=== PATIENT | female | born 1950 | race Caucasian/White ===

== ENCOUNTER 2017-07-17 19:00 | Inpatient (IN) | payer MEDICARE, MEDICAID ==
[~2017-07-17] VITALS: Ht 162.6 cm; Wt 128.4 kg
[~2017-07-17 19:00] MED LIST: ALBUTEROL SULFATE IH; ASPI-1159 PO; ATOR10TA69 PO; AZEL137S7 BOTHNSTRLS; CARV12.545 PO; CLOP75TA33 PO; DULO60CA44 PO; FERR-63 PO; FURO40TA5 PO; GABA-531 PO; HUMOLOG SQ; ISOS40TA17 PO; JUNUVIA PO; LETAIRIS PO; LEVEMIR SQ; LOSA25TA12 PO; MONT10TA21 PO; MULT-1146 PO; NITR0.4T SL; PANT40TA4 PO; POTA10TA15 PO; SUPER B-COMPLEX PO; TRAM50TA3 PO
[2017-07-17 20:00] VITALS: BP 139/71
[2017-07-17] MEDS ORDERED: GUAIFENESIN 200MG/10ML SUGAR FREE UDC PO PRN (20:15)
[2017-07-17] MEDS ORDERED: PROCHLORPERAZINE MALEATE 25MG SUPP PR PRN (20:15)
[2017-07-17] MEDS ORDERED: HEPARIN 100 UNITS/1 ML VIAL IVF PRN (20:15)
[2017-07-17] MEDS ORDERED: DIPHENHYDRAMINE 50MG/ML VIAL IV PRN (20:15)
[2017-07-17] MEDS ORDERED: DEXTROSE 50% WATER 50ML SYRINGE IV PRN (20:15)
[2017-07-17] MEDS ORDERED: CLONIDINE 0.1MG TABLET PO PRN (20:15)
[2017-07-17] MEDS ORDERED: IPRATROPIUM/ALBUTEROL 0.5-3(2.5)MG/3ML NEB HHN PRN (20:15)
[2017-07-17] MEDS: BLOOD SUGAR DIAGNOSTIC STRIP TEST SCH (21:00)
[2017-07-17] MEDS: SODIUM CHLORIDE 0.9% INJ 3ML FLUSH IVF SCH (22:36)
[2017-07-17] MEDS: ATORVASTATIN CALCIUM 10MG TABLET PO SCH (22:41)
[2017-07-17] MEDS: GUAIFENESIN 600MG ER TABLET PO SCH (22:41)
[2017-07-17] MEDS: INSULIN LISPRO 100 UNITS/ML SUBCUT SCH (22:46)
[2017-07-17] MEDS: INSULIN DETEMIR UD 100 UNITS/ML SYR SUBCUT SCH (22:46)
[2017-07-17] MEDS: CARVEDILOL 12.5MG TABLET PO SCH (22:55)
[2017-07-18] MEDS ORDERED: CIPROFLOXACIN 0.3% OPHTH SOLN 2.5ML LEFTEYE SCH
[2017-07-18] MEDS: THROAT LOZENGES-BENZOCAINE/MENTH/CETYLPYRD CL LOZENGES MM SCH ×6 (00:08→21:41)
[2017-07-18] MEDS: SULFAMETHOXAZOLE/TRIMETHOPRIM 400/80MG TAB PO SCH ×3 (00:09→21:40)
[2017-07-18] MEDS: PREDNISOLONE ACETATE 1% OPHTH DROPS 1ML RIGHTEYE SCH ×4 (00:16→17:08)
[2017-07-18] MEDS: KETOROLAC TROMETHAMINE 0.5% OPHTH 3ML RIGHTEYE SCH ×4 (00:20→17:08)
[2017-07-18] MEDS: IPRATROPIUM/ALBUTEROL 0.5-3(2.5)MG/3ML NEB HHN SCH ×7 (01:24→23:53)
[2017-07-18] MEDS ORDERED: RETAINE (02:16)
[2017-07-18] MEDS ORDERED: OMEP20CA10 PO (02:19)
[2017-07-18] MEDS ORDERED: VITAMIN C (02:26)
[2017-07-18] MEDS ORDERED: ZINC220T PO (02:26)
[2017-07-18] MEDS ORDERED: SPIR25TA4 PO (02:26)
[2017-07-18] MEDS ORDERED: AMLO5TAB4 PO (02:26)
[2017-07-18 05:58] LABS: HEMATOCRIT 34.1 % (36.0-48.0); HEMOGLOBIN 11.4 g/dL (12.0-16.0); MEAN CORPUSCULAR HEMOGLOBIN 28.4 pg (28.0-32.0); PLATELET 240 x1000/uL (130-400); RED BLOOD CELL COUNT 4.01 mill/uL (4.2-5.4); RED CELL DISTRIBUTION WIDTH 14.4 % (11.6-14.6)
[2017-07-18] MEDS: FAMOTIDINE 20MG TABLET PO SCH (06:42)
[2017-07-18] MEDS: SODIUM CHLORIDE 0.9% INJ 3ML FLUSH IVF SCH ×3 (06:43→21:53)
[2017-07-18] MEDS: BLOOD SUGAR DIAGNOSTIC STRIP TEST SCH ×4 (06:45→21:53)
[2017-07-18] MEDS: INSULIN LISPRO 100 UNITS/ML SUBCUT SCH ×4 (06:46→21:49)
[2017-07-18 07:08] LABS: CARBON DIOXIDE 23 mEq/L (21-32); CHLORIDE 91 mEq/L (98-107)
[2017-07-18 08:00] VITALS: BP 119/52
[2017-07-18 08:11] LABS: PREALBUMIN 36.4 mg/dL (20.0-40.0)
[2017-07-18] MEDS: ISOSORBIDE DINITRATE 20MG TABLET PO SCH ×2 (09:00→16:39)
[2017-07-18] MEDS: AMLODIPINE 10MG TABLET PO SCH (09:00)
[2017-07-18] MEDS: ACETAMINOPHEN 325MG TABLET PO PRN (09:09)
[2017-07-18] MEDS: GUAIFENESIN 600MG ER TABLET PO SCH ×2 (09:09→21:40)
[2017-07-18] MEDS: CARVEDILOL 12.5MG TABLET PO SCH ×2 (09:10→21:00)
[2017-07-18] MEDS: GABAPENTIN 300MG CAPSULE PO SCH ×2 (09:10→16:52)
[2017-07-18] MEDS: ASPIRIN 81MG TABLET PO SCH (09:10)
[2017-07-18] MEDS ORDERED: NON FORMULARY PATIENT HOME MED EA XX SCH (10:15)
[2017-07-18] MEDS: ONDANSETRON HCL 4MG/2ML VIAL IV PRN (10:24)
[2017-07-18] MEDS: LETAIRIS 5 MG PO SCH (10:24)
[2017-07-18] MEDS: INSULIN DETEMIR UD 100 UNITS/ML SYR SUBCUT SCH ×2 (10:42→21:50)
[2017-07-18] MEDS: LEVOFLOXACIN 500MG TABLET PO SCH (11:50)
[2017-07-18] MEDS: LIDOCAINE 5% PATCH TOP SCH (16:09)
[2017-07-18] MEDS: MONTELUKAST SODIUM 10MG TABLET PO SCH (16:52)
[2017-07-18 20:00] VITALS: BP 101/56
[2017-07-18] MEDS: ATORVASTATIN CALCIUM 10MG TABLET PO SCH (21:40)
[2017-07-18] MEDS: [UNRECOGNIZED DRUG - OTHER] OP SCH (21:42)
[2017-07-18] MEDS: TRIAMCINOLONE ACETONIDE 0.025% CREAM 15GM TOP SCH (21:52)
[2017-07-18] MEDS: AZELASTINE HCL XX SCH (21:56)
[2017-07-19] MEDS: KETOROLAC TROMETHAMINE 0.5% OPHTH 3ML RIGHTEYE SCH ×4 (01:10→18:31)
[2017-07-19] MEDS: PREDNISOLONE ACETATE 1% OPHTH DROPS 1ML RIGHTEYE SCH ×5 (01:10→23:35)
[2017-07-19] MEDS: THROAT LOZENGES-BENZOCAINE/MENTH/CETYLPYRD CL LOZENGES MM SCH ×7 (01:13→23:34)
[2017-07-19] MEDS: IPRATROPIUM/ALBUTEROL 0.5-3(2.5)MG/3ML NEB HHN SCH ×5 (04:09→20:50)
[2017-07-19] MEDS: FAMOTIDINE 20MG TABLET PO SCH (06:25)
[2017-07-19] MEDS: INSULIN LISPRO 100 UNITS/ML SUBCUT SCH ×4 (06:34→21:37)
[2017-07-19] MEDS: SODIUM CHLORIDE 0.9% INJ 3ML FLUSH IVF SCH ×3 (06:35→21:49)
[2017-07-19] MEDS: BLOOD SUGAR DIAGNOSTIC STRIP TEST SCH ×4 (06:36→21:41)
[2017-07-19 08:12] VITALS: BP 126/66
[2017-07-19] MEDS: LACTULOSE 20G/30ML UDC PO SCH ×5 (08:30→21:49)
[2017-07-19] MEDS: AMLODIPINE 10MG TABLET PO SCH (08:37)
[2017-07-19] MEDS: DOCUSATE SODIUM 100MG CAPSULE PO SCH ×2 (09:19→17:50)
[2017-07-19] MEDS: GABAPENTIN 300MG CAPSULE PO SCH ×2 (09:22→17:51)
[2017-07-19] MEDS: ASPIRIN 81MG TABLET PO SCH (09:22)
[2017-07-19] MEDS: SULFAMETHOXAZOLE/TRIMETHOPRIM 400/80MG TAB PO SCH ×2 (09:22→21:39)
[2017-07-19] MEDS: GUAIFENESIN 600MG ER TABLET PO SCH ×2 (09:22→21:39)
[2017-07-19] MEDS: CARVEDILOL 12.5MG TABLET PO SCH ×2 (09:23→21:00)
[2017-07-19] MEDS: AZELASTINE HCL XX SCH ×3 (09:24→17:58)
[2017-07-19] MEDS: ISOSORBIDE DINITRATE 20MG TABLET PO SCH ×2 (09:24→17:00)
[2017-07-19] MEDS: LIDOCAINE 5% PATCH TOP SCH (09:25)
[2017-07-19] MEDS: LETAIRIS 5 MG PO SCH (09:27)
[2017-07-19] MEDS: TRIAMCINOLONE ACETONIDE 0.025% CREAM 15GM TOP SCH ×2 (09:28→21:42)
[2017-07-19] MEDS: INSULIN DETEMIR UD 100 UNITS/ML SYR SUBCUT SCH ×2 (10:56→21:38)
[2017-07-19] MEDS: MONTELUKAST SODIUM 10MG TABLET PO SCH (17:58)
[2017-07-19] MEDS: ENOXAPARIN 30MG/0.3ML SYR SUBCUT SCH (18:01)
[2017-07-19 20:44] VITALS: BP 103/61
[2017-07-19] MEDS: ATORVASTATIN CALCIUM 10MG TABLET PO SCH (21:39)
[2017-07-19] MEDS: [UNRECOGNIZED DRUG - OTHER] OP SCH (21:40)
[2017-07-19] MEDS: [UNRECOGNIZED DRUG - OTHER] OP SCH (21:40)
[2017-07-19] MEDS: POLYVINYL ALCOHOL OPHTH DROPS 15ML BOTHEYE SCH (21:40)
[2017-07-19] MEDS: POLYETHYLENE GLYCOL 3350 (17GM) 1 DOSE PACK PO SCH (21:40)
[2017-07-19] MEDS: MAGNESIUM/ALUMINUM HYDROXIDE/SIMETHICONE 30ML UDC PO PRN (22:35)
[2017-07-19] MEDS: ONDANSETRON HCL 4MG/2ML VIAL IV PRN (23:32)
[2017-07-19] MEDS: ACETAMINOPHEN 325MG TABLET PO PRN (23:33)
[2017-07-20] MEDS: POLYVINYL ALCOHOL OPHTH DROPS 15ML BOTHEYE SCH ×6 (00:53→21:00)
[2017-07-20] MEDS: IPRATROPIUM/ALBUTEROL 0.5-3(2.5)MG/3ML NEB HHN SCH ×6 (00:53→21:11)
[2017-07-20] MEDS: THROAT LOZENGES-BENZOCAINE/MENTH/CETYLPYRD CL LOZENGES MM SCH ×6 (04:56→23:42)
[2017-07-20] MEDS: SODIUM CHLORIDE 0.9% INJ 3ML FLUSH IVF SCH ×3 (05:04→21:16)
[2017-07-20] MEDS: PREDNISOLONE ACETATE 1% OPHTH DROPS 1ML RIGHTEYE SCH ×4 (05:04→23:43)
[2017-07-20] MEDS: ACETAMINOPHEN 325MG TABLET PO PRN ×2 (05:44→17:08)
[2017-07-20] MEDS: FAMOTIDINE 20MG TABLET PO SCH (06:24)
[2017-07-20] MEDS: BLOOD SUGAR DIAGNOSTIC STRIP TEST SCH ×4 (06:26→21:22)
[2017-07-20] MEDS: INSULIN LISPRO 100 UNITS/ML SUBCUT SCH ×4 (06:48→21:21)
[2017-07-20 07:52] LABS: BASOPHILS % 0.5 % (0.0-2.0); EOSINOPHILS % 0.3 % (0.0-5.0); HEMATOCRIT. 35.4 % (36.0-48.0); HEMOGLOBIN. 11.4 g/dL (12.0-16.0); MEAN CORPUSCULAR HEMOGLOBIN 27.8 pg (28.0-32.0); MEAN CORPUSCULAR VOLUME 86.4 fL (81.0-99.0); MONOCYTES % 7.5 % (2.0-8.0); NEUTROPHILS % 83.7 % (40.0-76.0); PLATELET 273 x1000/uL (130-400); RED CELL DISTRIBUTION WIDTH 14.6 % (11.6-14.6)
[2017-07-20 07:54] VITALS: BP 141/60
[2017-07-20 07:59] VITALS: BP_SYST 141; BP_SYST 99; BP_DIAS 57; BP_DIAS 60
[2017-07-20 08:34] LABS: PHOSPHORUS 6.7 mg/dL (2.5-4.9)
[2017-07-20 09:21] LABS: FOLIC ACID (FOLATE) SERUM > 20.00 ng/mL (>5.38); VITAMIN B12 SERUM > 2000.0 pg/mL (211-911)
[2017-07-20 09:29] LABS: FERRITIN 645 ng/mL (10-291)
[2017-07-20] MEDS: AZELASTINE HCL XX SCH ×3 (09:55→16:26)
[2017-07-20] MEDS: KETOROLAC TROMETHAMINE 0.5% OPHTH 3ML RIGHTEYE SCH ×3 (09:56→17:07)
[2017-07-20] MEDS: SULFAMETHOXAZOLE/TRIMETHOPRIM 400/80MG TAB PO SCH ×2 (09:58→21:00)
[2017-07-20] MEDS: CARVEDILOL 12.5MG TABLET PO SCH ×2 (09:58→21:01)
[2017-07-20] MEDS: DOCUSATE SODIUM 100MG CAPSULE PO SCH ×2 (09:58→17:00)
[2017-07-20] MEDS: AMLODIPINE 10MG TABLET PO SCH (09:59)
[2017-07-20] MEDS: ISOSORBIDE DINITRATE 20MG TABLET PO SCH ×2 (09:59→17:08)
[2017-07-20] MEDS: LETAIRIS 5 MG PO SCH (10:00)
[2017-07-20] MEDS: [UNRECOGNIZED DRUG - OTHER] OP SCH ×4 (10:00→21:00)
[2017-07-20] MEDS: GABAPENTIN 300MG CAPSULE PO SCH ×2 (10:01→16:28)
[2017-07-20] MEDS: ASPIRIN 81MG TABLET PO SCH (10:01)
[2017-07-20] MEDS: GUAIFENESIN 600MG ER TABLET PO SCH ×2 (10:01→21:00)
[2017-07-20] MEDS: TRIAMCINOLONE ACETONIDE 0.025% CREAM 15GM TOP SCH ×2 (10:03→21:03)
[2017-07-20] MEDS: LIDOCAINE 5% PATCH TOP SCH (10:05)
[2017-07-20] MEDS: INSULIN DETEMIR UD 100 UNITS/ML SYR SUBCUT SCH ×2 (10:16→21:22)
[2017-07-20] MEDS: LEVOFLOXACIN 500MG TABLET PO SCH (12:19)
[2017-07-20] MEDS: MONTELUKAST SODIUM 10MG TABLET PO SCH (16:28)
[2017-07-20] MEDS: ENOXAPARIN 30MG/0.3ML SYR SUBCUT SCH (16:30)
[2017-07-20 20:00] VITALS: BP 115/51
[2017-07-20] MEDS: IRON SUCROSE COMPLEX 200 MG in SODIUM CHLORIDE 0.9% 100 ML IV SCH (20:59)
[2017-07-20] MEDS: ATORVASTATIN CALCIUM 10MG TABLET PO SCH (21:00)
[2017-07-20] MEDS: [UNRECOGNIZED DRUG - OTHER] OP SCH (21:00)
[2017-07-20] MEDS: POLYETHYLENE GLYCOL 3350 (17GM) 1 DOSE PACK PO SCH (21:00)
[2017-07-21] MEDS: IPRATROPIUM/ALBUTEROL 0.5-3(2.5)MG/3ML NEB HHN SCH ×6 (00:39→21:33)
[2017-07-21] MEDS: POLYVINYL ALCOHOL OPHTH DROPS 15ML BOTHEYE SCH ×6 (00:46→22:28)
[2017-07-21] MEDS: THROAT LOZENGES-BENZOCAINE/MENTH/CETYLPYRD CL LOZENGES MM SCH ×6 (03:53→23:06)
[2017-07-21] MEDS: PREDNISOLONE ACETATE 1% OPHTH DROPS 1ML RIGHTEYE SCH ×3 (05:29→17:29)
[2017-07-21] MEDS: SODIUM CHLORIDE 0.9% INJ 3ML FLUSH IVF SCH ×3 (05:30→22:30)
[2017-07-21] MEDS: ONDANSETRON HCL 4MG/2ML VIAL IV PRN ×4 (05:37→22:45)
[2017-07-21] MEDS: FAMOTIDINE 20MG TABLET PO SCH (06:21)
[2017-07-21] MEDS: ACETAMINOPHEN 325MG TABLET PO PRN ×3 (06:25→22:32)
[2017-07-21] MEDS: BLOOD SUGAR DIAGNOSTIC STRIP TEST SCH ×4 (06:28→21:00)
[2017-07-21] MEDS: INSULIN LISPRO 100 UNITS/ML SUBCUT SCH ×4 (06:52→22:44)
[2017-07-21 08:00] VITALS: BP 116/56
[2017-07-21] MEDS: AMLODIPINE 10MG TABLET PO SCH (09:00)
[2017-07-21] MEDS: ISOSORBIDE DINITRATE 20MG TABLET PO SCH ×2 (09:00→16:24)
[2017-07-21] MEDS: CARVEDILOL 12.5MG TABLET PO SCH ×2 (09:00→22:32)
[2017-07-21] MEDS: DOCUSATE SODIUM 100MG CAPSULE PO SCH ×2 (09:20→16:18)
[2017-07-21] MEDS: ASPIRIN 81MG TABLET PO SCH (09:20)
[2017-07-21] MEDS: GABAPENTIN 300MG CAPSULE PO SCH ×2 (09:20→16:18)
[2017-07-21] MEDS: GUAIFENESIN 600MG ER TABLET PO SCH ×2 (09:20→21:00)
[2017-07-21] MEDS: [UNRECOGNIZED DRUG - OTHER] OP SCH ×4 (09:22→22:28)
[2017-07-21] MEDS: LETAIRIS 5 MG PO SCH (09:23)
[2017-07-21] MEDS: KETOROLAC TROMETHAMINE 0.5% OPHTH 3ML RIGHTEYE SCH ×3 (09:23→16:19)
[2017-07-21] MEDS: AZELASTINE HCL XX SCH ×3 (09:24→16:18)
[2017-07-21] MEDS: LIDOCAINE 5% PATCH TOP SCH (09:25)
[2017-07-21] MEDS: TRIAMCINOLONE ACETONIDE 0.025% CREAM 15GM TOP SCH ×2 (10:27→21:00)
[2017-07-21] MEDS: INSULIN DETEMIR UD 100 UNITS/ML SYR SUBCUT SCH ×2 (10:34→22:42)
[2017-07-21 15:14] LABS: PHOSPHORUS 5.4 mg/dL (2.5-4.9)
[2017-07-21 15:27] LABS: BASOPHILS % 0.6 % (0.0-2.0); EOSINOPHILS % 2.3 % (0.0-5.0); HEMATOCRIT. 30.9 % (36.0-48.0); HEMOGLOBIN. 10.1 g/dL (12.0-16.0); LYMPHOCYTES % 10.3 % (20.0-50.0); MEAN CORPUSCULAR VOLUME 85.9 fL (81.0-99.0); MEAN PLATELET VOLUME 8.1 fl (7.4-10.4); MONOCYTES % 11.2 % (2.0-8.0); NEUTROPHILS % 75.6 % (40.0-76.0); PLATELET 212 x1000/uL (130-400); RED CELL DISTRIBUTION WIDTH 14.4 % (11.6-14.6)
[2017-07-21] MEDS: ENOXAPARIN 30MG/0.3ML SYR SUBCUT SCH (16:17)
[2017-07-21] MEDS: MONTELUKAST SODIUM 10MG TABLET PO SCH (16:18)
[2017-07-21] MEDS ORDERED: ENOXAPARIN 40MG/0.4ML SYR SUBCUT SCH (17:00)
[2017-07-21 19:00] VITALS: BP 104/49
[2017-07-21] MEDS: POLYETHYLENE GLYCOL 3350 (17GM) 1 DOSE PACK PO SCH (21:00)
[2017-07-21] MEDS: [UNRECOGNIZED DRUG - OTHER] OP SCH (21:00)
[2017-07-21] MEDS ORDERED: IRON SUCROSE COMPLEX 100 MG/5 ML ML IV ONE (22:17)
[2017-07-21] MEDS: IRON SUCROSE COMPLEX 200 MG in SODIUM CHLORIDE 0.9% 100 ML IV SCH (22:27)
[2017-07-21] MEDS: ATORVASTATIN CALCIUM 10MG TABLET PO SCH (22:32)
[2017-07-22] MEDS: IPRATROPIUM/ALBUTEROL 0.5-3(2.5)MG/3ML NEB HHN SCH ×5 (00:52→20:12)
[2017-07-22] MEDS: POLYVINYL ALCOHOL OPHTH DROPS 15ML BOTHEYE SCH ×6 (00:54→21:55)
[2017-07-22] MEDS: PREDNISOLONE ACETATE 1% OPHTH DROPS 1ML RIGHTEYE SCH ×4 (00:55→18:07)
[2017-07-22] MEDS: THROAT LOZENGES-BENZOCAINE/MENTH/CETYLPYRD CL LOZENGES MM SCH ×5 (04:00→21:52)
[2017-07-22] MEDS: FAMOTIDINE 20MG TABLET PO SCH (06:25)
[2017-07-22] MEDS: SODIUM CHLORIDE 0.9% INJ 3ML FLUSH IVF SCH ×3 (06:28→21:56)
[2017-07-22] MEDS: BLOOD SUGAR DIAGNOSTIC STRIP TEST SCH ×4 (06:28→21:56)
[2017-07-22] MEDS: INSULIN LISPRO 100 UNITS/ML SUBCUT SCH ×4 (06:36→22:00)
[2017-07-22 08:00] VITALS: BP 96/45
[2017-07-22] MEDS: ONDANSETRON HCL 4MG/2ML VIAL IV PRN (08:57)
[2017-07-22] MEDS: CARVEDILOL 12.5MG TABLET PO SCH ×2 (09:00→21:55)
[2017-07-22] MEDS: AMLODIPINE 10MG TABLET PO SCH (09:00)
[2017-07-22] MEDS: ISOSORBIDE DINITRATE 20MG TABLET PO SCH ×2 (09:00→18:17)
[2017-07-22] MEDS: DOCUSATE SODIUM 100MG CAPSULE PO SCH ×2 (09:12→17:00)
[2017-07-22] MEDS: ASPIRIN 81MG TABLET PO SCH (09:14)
[2017-07-22] MEDS: GUAIFENESIN 600MG ER TABLET PO SCH ×2 (09:14→21:54)
[2017-07-22] MEDS: AZELASTINE HCL XX SCH ×3 (09:15→18:07)
[2017-07-22] MEDS: LETAIRIS 5 MG PO SCH (09:15)
[2017-07-22] MEDS: [UNRECOGNIZED DRUG - OTHER] OP SCH ×4 (09:16→21:53)
[2017-07-22] MEDS: GABAPENTIN 300MG CAPSULE PO SCH ×2 (09:22→18:05)
[2017-07-22] MEDS: TRIAMCINOLONE ACETONIDE 0.025% CREAM 15GM TOP SCH ×2 (09:22→21:56)
[2017-07-22] MEDS: KETOROLAC TROMETHAMINE 0.5% OPHTH 3ML RIGHTEYE SCH ×3 (09:22→18:04)
[2017-07-22] MEDS: LIDOCAINE 5% PATCH TOP SCH (09:23)
[2017-07-22] MEDS: INSULIN DETEMIR UD 100 UNITS/ML SYR SUBCUT SCH ×3 (10:00→22:01)
[2017-07-22] MEDS ORDERED: TRAMADOL 50MG TABLET PO PRN (14:30)
[2017-07-22] MEDS: ENOXAPARIN 40MG/0.4ML SYR SUBCUT SCH (18:04)
[2017-07-22] MEDS: MONTELUKAST SODIUM 10MG TABLET PO SCH (18:06)
[2017-07-22 20:00] VITALS: BP_SYST 120; BP_SYST 129; BP_DIAS 55; BP_DIAS 64
[2017-07-22] MEDS: IRON SUCROSE COMPLEX 200 MG in SODIUM CHLORIDE 0.9% 100 ML IV SCH (21:52)
[2017-07-22] MEDS: [UNRECOGNIZED DRUG - OTHER] OP SCH (21:53)
[2017-07-22] MEDS: ATORVASTATIN CALCIUM 10MG TABLET PO SCH (21:54)
[2017-07-22] MEDS: POLYETHYLENE GLYCOL 3350 (17GM) 1 DOSE PACK PO SCH (21:56)
[2017-07-23] MEDS: POLYVINYL ALCOHOL OPHTH DROPS 15ML BOTHEYE SCH ×6 (00:07→20:50)
[2017-07-23] MEDS: PREDNISOLONE ACETATE 1% OPHTH DROPS 1ML RIGHTEYE SCH ×4 (00:07→18:52)
[2017-07-23] MEDS: IPRATROPIUM/ALBUTEROL 0.5-3(2.5)MG/3ML NEB HHN SCH ×6 (00:12→20:50)
[2017-07-23] MEDS: THROAT LOZENGES-BENZOCAINE/MENTH/CETYLPYRD CL LOZENGES MM SCH ×6 (04:00→20:49)
[2017-07-23 06:45] LABS: HEMATOCRIT. 29.8 % (36.0-48.0); HEMOGLOBIN. 9.8 g/dL (12.0-16.0); MEAN CORPUSCULAR HEMOGLOBIN 28.4 pg (28.0-32.0); MEAN CORPUSCULAR VOLUME 86.1 fL (81.0-99.0); MEAN PLATELET VOLUME 8.3 fl (7.4-10.4); PLATELET 205 x1000/uL (130-400); RED BLOOD CELL COUNT 3.46 mill/uL (4.2-5.4)
[2017-07-23] MEDS: FAMOTIDINE 20MG TABLET PO SCH (06:45)
[2017-07-23] MEDS: SODIUM CHLORIDE 0.9% INJ 3ML FLUSH IVF SCH ×3 (06:46→21:58)
[2017-07-23] MEDS: INSULIN LISPRO 100 UNITS/ML SUBCUT SCH ×4 (06:47→21:58)
[2017-07-23] MEDS: BLOOD SUGAR DIAGNOSTIC STRIP TEST SCH ×4 (06:52→21:56)
[2017-07-23 08:00] VITALS: BP 111/45
[2017-07-23 08:35] LABS: PHOSPHORUS 5.3 mg/dL (2.5-4.9)
[2017-07-23] MEDS: AMLODIPINE 10MG TABLET PO SCH (09:00)
[2017-07-23] MEDS: CARVEDILOL 12.5MG TABLET PO SCH ×2 (09:00→20:49)
[2017-07-23] MEDS: ISOSORBIDE DINITRATE 20MG TABLET PO SCH ×2 (09:00→17:00)
[2017-07-23] MEDS: [UNRECOGNIZED DRUG - OTHER] OP SCH ×4 (09:59→20:49)
[2017-07-23] MEDS: DOCUSATE SODIUM 100MG CAPSULE PO SCH ×2 (09:59→17:00)
[2017-07-23] MEDS: ASPIRIN 81MG TABLET PO SCH (09:59)
[2017-07-23] MEDS: GABAPENTIN 300MG CAPSULE PO SCH ×2 (09:59→18:51)
[2017-07-23] MEDS: GUAIFENESIN 600MG ER TABLET PO SCH ×2 (09:59→20:49)
[2017-07-23] MEDS: AZELASTINE HCL XX SCH ×3 (10:00→17:23)
[2017-07-23] MEDS: KETOROLAC TROMETHAMINE 0.5% OPHTH 3ML RIGHTEYE SCH ×3 (10:00→17:21)
[2017-07-23] MEDS: TRIAMCINOLONE ACETONIDE 0.025% CREAM 15GM TOP SCH ×2 (10:00→20:50)
[2017-07-23] MEDS: LETAIRIS 5 MG PO SCH (10:01)
[2017-07-23] MEDS: TRAMADOL 50MG TABLET PO PRN (10:05)
[2017-07-23] MEDS: INSULIN DETEMIR UD 100 UNITS/ML SYR SUBCUT SCH ×2 (10:13→21:58)
[2017-07-23] MEDS: LIDOCAINE 5% PATCH TOP SCH (10:49)
[2017-07-23] MEDS: ENOXAPARIN 40MG/0.4ML SYR SUBCUT SCH (18:51)
[2017-07-23] MEDS: MONTELUKAST SODIUM 10MG TABLET PO SCH (18:52)
[2017-07-23 19:53] VITALS: BP 118/60
[2017-07-23 19:54] VITALS: BP_SYST 123; BP_SYST 128; BP_DIAS 64
[2017-07-23] MEDS: IRON SUCROSE COMPLEX 200 MG in SODIUM CHLORIDE 0.9% 100 ML IV SCH ×2 (20:00→21:59)
[2017-07-23] MEDS: ATORVASTATIN CALCIUM 10MG TABLET PO SCH (20:49)
[2017-07-23] MEDS: POLYETHYLENE GLYCOL 3350 (17GM) 1 DOSE PACK PO SCH (20:53)
[2017-07-23 21:05] LABS: PLATELET ESTIMATE NORMAL
[2017-07-23] MEDS: [UNRECOGNIZED DRUG - OTHER] OP SCH (21:56)
[2017-07-24] MEDS: POLYVINYL ALCOHOL OPHTH DROPS 15ML BOTHEYE SCH ×6 (00:06→21:04)
[2017-07-24] MEDS: THROAT LOZENGES-BENZOCAINE/MENTH/CETYLPYRD CL LOZENGES MM SCH ×6 (00:06→21:03)
[2017-07-24] MEDS: PREDNISOLONE ACETATE 1% OPHTH DROPS 1ML RIGHTEYE SCH ×4 (00:06→17:00)
[2017-07-24] MEDS: IPRATROPIUM/ALBUTEROL 0.5-3(2.5)MG/3ML NEB HHN SCH ×6 (01:00→20:47)
[2017-07-24] MEDS: SODIUM CHLORIDE 0.9% INJ 3ML FLUSH IVF SCH ×3 (05:09→21:08)
[2017-07-24] MEDS: FAMOTIDINE 20MG TABLET PO SCH (06:32)
[2017-07-24] MEDS: BLOOD SUGAR DIAGNOSTIC STRIP TEST SCH ×4 (06:33→21:07)
[2017-07-24 06:48] LABS: HEMATOCRIT. 29.7 % (36.0-48.0); HEMOGLOBIN. 9.9 g/dL (12.0-16.0); MEAN CORPUSCULAR HEMOGLOBIN 28.5 pg (28.0-32.0); MEAN CORPUSCULAR VOLUME 85.7 fL (81.0-99.0); MEAN PLATELET VOLUME 8.1 fl (7.4-10.4); PLATELET 197 x1000/uL (130-400); RED BLOOD CELL COUNT 3.47 mill/uL (4.2-5.4); RED CELL DISTRIBUTION WIDTH 14.6 % (11.6-14.6)
[2017-07-24] MEDS: INSULIN LISPRO 100 UNITS/ML SUBCUT SCH ×4 (06:50→21:43)
[2017-07-24 08:00] VITALS: BP 118/43
[2017-07-24 09:00] VITALS: BP_SYST 118; BP_SYST 123; BP_DIAS 58; BP_DIAS 62
[2017-07-24] MEDS: ASPIRIN 81MG TABLET PO SCH (09:57)
[2017-07-24] MEDS: AMLODIPINE 10MG TABLET PO SCH (09:58)
[2017-07-24] MEDS: ISOSORBIDE DINITRATE 20MG TABLET PO SCH ×2 (09:58→16:59)
[2017-07-24] MEDS: TRAMADOL 50MG TABLET PO PRN (09:58)
[2017-07-24] MEDS: GABAPENTIN 300MG CAPSULE PO SCH ×2 (09:58→16:55)
[2017-07-24] MEDS: [UNRECOGNIZED DRUG - OTHER] OP SCH ×4 (09:59→21:04)
[2017-07-24] MEDS: DOCUSATE SODIUM 100MG CAPSULE PO SCH ×2 (09:59→16:55)
[2017-07-24] MEDS: GUAIFENESIN 600MG ER TABLET PO SCH ×2 (09:59→21:07)
[2017-07-24] MEDS: CARVEDILOL 12.5MG TABLET PO SCH ×2 (09:59→21:00)
[2017-07-24] MEDS: LIDOCAINE 5% PATCH TOP SCH (10:00)
[2017-07-24] MEDS: LETAIRIS 5 MG PO SCH (10:01)
[2017-07-24] MEDS: TRIAMCINOLONE ACETONIDE 0.025% CREAM 15GM TOP SCH ×2 (10:01→21:08)
[2017-07-24] MEDS: KETOROLAC TROMETHAMINE 0.5% OPHTH 3ML RIGHTEYE SCH ×3 (10:02→16:55)
[2017-07-24] MEDS: AZELASTINE HCL XX SCH ×3 (10:02→16:57)
[2017-07-24] MEDS: ONDANSETRON HCL 4MG/2ML VIAL IV PRN (11:09)
[2017-07-24] MEDS: INSULIN DETEMIR UD 100 UNITS/ML SYR SUBCUT SCH ×2 (11:15→21:43)
[2017-07-24 12:11] LABS: PLATELET ESTIMATE NORMAL
[2017-07-24] MEDS: ACETAMINOPHEN 325MG TABLET PO PRN (14:44)
[2017-07-24] MEDS: MONTELUKAST SODIUM 10MG TABLET PO SCH (16:55)
[2017-07-24] MEDS: ENOXAPARIN 40MG/0.4ML SYR SUBCUT SCH (16:57)
[2017-07-24 20:00] VITALS: BP 111/63
[2017-07-24] MEDS: IRON SUCROSE COMPLEX 200 MG in SODIUM CHLORIDE 0.9% 100 ML IV SCH (21:03)
[2017-07-24] MEDS: [UNRECOGNIZED DRUG - OTHER] OP SCH (21:04)
[2017-07-24] MEDS: ATORVASTATIN CALCIUM 10MG TABLET PO SCH (21:06)
[2017-07-24] MEDS: POLYETHYLENE GLYCOL 3350 (17GM) 1 DOSE PACK PO SCH (21:07)
[2017-07-25] VITALS (10 sets, daily range): BP systolic 111–137; BP diastolic 42–65
[2017-07-25] MEDS: POLYVINYL ALCOHOL OPHTH DROPS 15ML BOTHEYE SCH ×6 (00:37→21:18)
[2017-07-25] MEDS: THROAT LOZENGES-BENZOCAINE/MENTH/CETYLPYRD CL LOZENGES MM SCH ×7 (00:37→23:59)
[2017-07-25] MEDS: PREDNISOLONE ACETATE 1% OPHTH DROPS 1ML RIGHTEYE SCH ×5 (00:37→23:59)
[2017-07-25] MEDS: IPRATROPIUM/ALBUTEROL 0.5-3(2.5)MG/3ML NEB HHN SCH ×7 (00:52→23:24)
[2017-07-25 05:51] LABS: INR 1.1; PARTIAL THROMBOPLASTIN TIME 35.7 sec (23.4-31.0); PROTHROMBIN TIME 11.7 sec (9.4-11.6)
[2017-07-25 05:54] LABS: HEMATOCRIT. 28.7 % (36.0-48.0); HEMOGLOBIN. 9.4 g/dL (12.0-16.0); MEAN CORPUSCULAR HEMOGLOBIN 28.2 pg (28.0-32.0); MEAN CORPUSCULAR VOLUME 85.9 fL (81.0-99.0); PLATELET 174 x1000/uL (130-400); RED BLOOD CELL COUNT 3.34 mill/uL (4.2-5.4); RED CELL DISTRIBUTION WIDTH 14.6 % (11.6-14.6)
[2017-07-25] MEDS: SODIUM CHLORIDE 0.9% INJ 3ML FLUSH IVF SCH ×3 (06:31→21:16)
[2017-07-25] MEDS: FAMOTIDINE 20MG TABLET PO SCH (06:32)
[2017-07-25] MEDS: BLOOD SUGAR DIAGNOSTIC STRIP TEST SCH ×4 (06:32→21:32)
[2017-07-25] MEDS: LETAIRIS 5 MG PO SCH (09:00)
[2017-07-25] MEDS: GABAPENTIN 300MG CAPSULE PO SCH ×2 (09:00→16:48)
[2017-07-25] MEDS: AMLODIPINE 10MG TABLET PO SCH (09:00)
[2017-07-25] MEDS: DOCUSATE SODIUM 100MG CAPSULE PO SCH ×2 (09:00→16:48)
[2017-07-25] MEDS: GUAIFENESIN 600MG ER TABLET PO SCH ×2 (09:00→21:21)
[2017-07-25] MEDS: AZELASTINE HCL XX SCH ×3 (09:00→16:52)
[2017-07-25] MEDS: ISOSORBIDE DINITRATE 20MG TABLET PO SCH ×2 (09:00→16:51)
[2017-07-25] MEDS: ASPIRIN 81MG TABLET PO SCH (09:00)
[2017-07-25] MEDS: CARVEDILOL 12.5MG TABLET PO SCH ×2 (09:00→21:21)
[2017-07-25] MEDS: INSULIN LISPRO 100 UNITS/ML SUBCUT SCH ×4 (09:00→21:26)
[2017-07-25] MEDS: TRIAMCINOLONE ACETONIDE 0.025% CREAM 15GM TOP SCH ×2 (09:00→21:21)
[2017-07-25] MEDS: [UNRECOGNIZED DRUG - OTHER] OP SCH ×4 (09:30→21:23)
[2017-07-25] MEDS: KETOROLAC TROMETHAMINE 0.5% OPHTH 3ML RIGHTEYE SCH ×3 (09:32→16:52)
[2017-07-25] MEDS: INSULIN DETEMIR UD 100 UNITS/ML SYR SUBCUT SCH ×2 (10:00→21:32)
[2017-07-25] MEDS: LIDOCAINE 5% PATCH TOP SCH (10:10)
[2017-07-25] MEDS ORDERED: CEFAZOLIN 1000MG PREMIX 50 ML IV SCH (11:00)
[2017-07-25] MEDS ORDERED: CEFAZOLIN 1000MG PREMIX 50 ML IV ONE (11:05)
[2017-07-25] MEDS ORDERED: SODIUM BICARBONATE 4% (2.4MEQ) 5ML VIAL IV ONE (11:05)
[2017-07-25] MEDS ORDERED: LIDOCAINE HCL 1% 20ML VIAL (Pyxis) INJ ONE (11:05)
[2017-07-25] MEDS ORDERED: FENTANYL CITRATE/PF 50MCG/ML 2ML VIAL ONE (11:30)
[2017-07-25] MEDS ORDERED: FENTANYL CITRATE/PF 50MCG/ML 2ML VIAL IV ONE (11:45)
[2017-07-25] MEDS: ENOXAPARIN 40MG/0.4ML SYR SUBCUT SCH (16:48)
[2017-07-25] MEDS: TRAMADOL 50MG TABLET PO PRN (16:49)
[2017-07-25] MEDS: MONTELUKAST SODIUM 10MG TABLET PO SCH (16:49)
[2017-07-25] MEDS: ONDANSETRON HCL 4MG/2ML VIAL IV PRN (21:15)
[2017-07-25] MEDS: ATORVASTATIN CALCIUM 10MG TABLET PO SCH (21:21)
[2017-07-25] MEDS: POLYETHYLENE GLYCOL 3350 (17GM) 1 DOSE PACK PO SCH (21:22)
[2017-07-25] MEDS: [UNRECOGNIZED DRUG - OTHER] OP SCH (21:32)
[2017-07-26] MEDS: POLYVINYL ALCOHOL OPHTH DROPS 15ML BOTHEYE SCH ×6 (00:02→22:13)
[2017-07-26] MEDS: IPRATROPIUM/ALBUTEROL 0.5-3(2.5)MG/3ML NEB HHN SCH ×5 (03:30→21:12)
[2017-07-26] MEDS: THROAT LOZENGES-BENZOCAINE/MENTH/CETYLPYRD CL LOZENGES MM SCH ×5 (04:32→22:16)
[2017-07-26] MEDS: MAGNESIUM/ALUMINUM HYDROXIDE/SIMETHICONE 30ML UDC PO PRN (04:38)
[2017-07-26] MEDS: FAMOTIDINE 20MG TABLET PO SCH (06:32)
[2017-07-26] MEDS: SODIUM CHLORIDE 0.9% INJ 3ML FLUSH IVF SCH ×3 (06:33→22:16)
[2017-07-26] MEDS: PREDNISOLONE ACETATE 1% OPHTH DROPS 1ML RIGHTEYE SCH ×3 (06:33→18:04)
[2017-07-26] MEDS: INSULIN LISPRO 100 UNITS/ML SUBCUT SCH ×4 (06:35→22:23)
[2017-07-26] MEDS: BLOOD SUGAR DIAGNOSTIC STRIP TEST SCH ×4 (06:36→21:00)
[2017-07-26 07:00] LABS: HEMATOCRIT. 30.1 % (36.0-48.0); HEMOGLOBIN. 10.1 g/dL (12.0-16.0); MEAN CORPUSCULAR HEMOGLOBIN 28.5 pg (28.0-32.0); MEAN CORPUSCULAR VOLUME 85.5 fL (81.0-99.0); PLATELET 168 x1000/uL (130-400); RED BLOOD CELL COUNT 3.53 mill/uL (4.2-5.4); RED CELL DISTRIBUTION WIDTH 14.5 % (11.6-14.6)
[2017-07-26 08:00] VITALS: BP 99/40
[2017-07-26] MEDS: KETOROLAC TROMETHAMINE 0.5% OPHTH 3ML RIGHTEYE SCH ×3 (10:16→17:59)
[2017-07-26] MEDS: [UNRECOGNIZED DRUG - OTHER] OP SCH ×4 (10:17→22:19)
[2017-07-26] MEDS: GUAIFENESIN 600MG ER TABLET PO SCH ×2 (10:19→22:15)
[2017-07-26] MEDS: LETAIRIS 5 MG PO SCH (10:19)
[2017-07-26] MEDS: GABAPENTIN 300MG CAPSULE PO SCH ×2 (10:20→18:01)
[2017-07-26] MEDS: ASPIRIN 81MG TABLET PO SCH (10:20)
[2017-07-26] MEDS: DOCUSATE SODIUM 100MG CAPSULE PO SCH ×2 (10:20→18:01)
[2017-07-26] MEDS: ISOSORBIDE DINITRATE 20MG TABLET PO SCH ×2 (10:23→18:02)
[2017-07-26] MEDS: CARVEDILOL 12.5MG TABLET PO SCH ×2 (10:24→21:00)
[2017-07-26] MEDS: AMLODIPINE 10MG TABLET PO SCH (10:24)
[2017-07-26] MEDS: TRIAMCINOLONE ACETONIDE 0.025% CREAM 15GM TOP SCH ×2 (10:26→22:20)
[2017-07-26] MEDS: LIDOCAINE 5% PATCH TOP SCH (10:27)
[2017-07-26] MEDS: INSULIN DETEMIR UD 100 UNITS/ML SYR SUBCUT SCH ×2 (10:40→22:24)
[2017-07-26] MEDS: AZELASTINE HCL XX SCH ×3 (10:43→17:58)
[2017-07-26] MEDS: TRAMADOL 50MG TABLET PO PRN (12:09)
[2017-07-26 14:06] LABS: PLATELET ESTIMATE NORMAL
[2017-07-26 15:00] VITALS: BP 120/85
[2017-07-26 15:05] VITALS: BP 113/57
[2017-07-26 15:08] VITALS: BP 112/52
[2017-07-26] MEDS: MONTELUKAST SODIUM 10MG TABLET PO SCH (18:02)
[2017-07-26] MEDS: ENOXAPARIN 40MG/0.4ML SYR SUBCUT SCH (18:05)
[2017-07-26 20:00] VITALS: BP 114/55
[2017-07-26 20:45] VITALS: BP_SYST 106; BP_SYST 118; BP_DIAS 56; BP_DIAS 63
[2017-07-26] MEDS: ATORVASTATIN CALCIUM 10MG TABLET PO SCH (22:14)
[2017-07-26] MEDS: POLYETHYLENE GLYCOL 3350 (17GM) 1 DOSE PACK PO SCH (22:15)
[2017-07-26] MEDS: [UNRECOGNIZED DRUG - OTHER] OP SCH (22:25)
[2017-07-27] MEDS: THROAT LOZENGES-BENZOCAINE/MENTH/CETYLPYRD CL LOZENGES MM SCH ×6 (00:54→22:07)
[2017-07-27] MEDS: PREDNISOLONE ACETATE 1% OPHTH DROPS 1ML RIGHTEYE SCH ×5 (00:54→23:59)
[2017-07-27] MEDS: POLYVINYL ALCOHOL OPHTH DROPS 15ML BOTHEYE SCH ×6 (00:56→22:08)
[2017-07-27] MEDS: IPRATROPIUM/ALBUTEROL 0.5-3(2.5)MG/3ML NEB HHN SCH ×7 (00:57→23:56)
[2017-07-27] MEDS: SODIUM CHLORIDE 0.9% INJ 3ML FLUSH IVF SCH ×3 (05:13→22:00)
[2017-07-27] MEDS: BLOOD SUGAR DIAGNOSTIC STRIP TEST SCH ×4 (06:19→21:00)
[2017-07-27] MEDS: FAMOTIDINE 20MG TABLET PO SCH (06:29)
[2017-07-27] MEDS: INSULIN LISPRO 100 UNITS/ML SUBCUT SCH ×4 (06:33→22:16)
[2017-07-27 08:00] VITALS: BP 112/44
[2017-07-27] MEDS: CARVEDILOL 12.5MG TABLET PO SCH ×2 (09:40→22:10)
[2017-07-27] MEDS: AMLODIPINE 10MG TABLET PO SCH (09:40)
[2017-07-27] MEDS: ISOSORBIDE DINITRATE 20MG TABLET PO SCH ×2 (09:40→17:00)
[2017-07-27] MEDS: GUAIFENESIN 600MG ER TABLET PO SCH ×2 (09:40→22:09)
[2017-07-27] MEDS: GABAPENTIN 300MG CAPSULE PO SCH ×2 (09:40→17:40)
[2017-07-27] MEDS: DOCUSATE SODIUM 100MG CAPSULE PO SCH ×2 (09:41→17:40)
[2017-07-27] MEDS: [UNRECOGNIZED DRUG - OTHER] OP SCH ×4 (09:41→22:13)
[2017-07-27] MEDS: ASPIRIN 81MG TABLET PO SCH (09:41)
[2017-07-27] MEDS: LIDOCAINE 5% PATCH TOP SCH (09:42)
[2017-07-27] MEDS: TRIAMCINOLONE ACETONIDE 0.025% CREAM 15GM TOP SCH ×2 (09:42→22:13)
[2017-07-27] MEDS: KETOROLAC TROMETHAMINE 0.5% OPHTH 3ML RIGHTEYE SCH ×3 (09:54→17:43)
[2017-07-27] MEDS: AZELASTINE HCL XX SCH ×3 (09:54→17:41)
[2017-07-27] MEDS: LETAIRIS 5 MG PO SCH (09:54)
[2017-07-27] MEDS: INSULIN DETEMIR UD 100 UNITS/ML SYR SUBCUT SCH ×2 (10:14→22:19)
[2017-07-27 12:53] LABS: PLATELET ESTIMATE NORMAL
[2017-07-27] MEDS: MONTELUKAST SODIUM 10MG TABLET PO SCH (17:40)
[2017-07-27] MEDS: ENOXAPARIN 40MG/0.4ML SYR SUBCUT SCH (17:41)
[2017-07-27 20:00] VITALS: BP 143/69
[2017-07-27] MEDS: ACETAMINOPHEN 325MG TABLET PO PRN (22:09)
[2017-07-27] MEDS: ATORVASTATIN CALCIUM 10MG TABLET PO SCH (22:09)
[2017-07-27] MEDS: POLYETHYLENE GLYCOL 3350 (17GM) 1 DOSE PACK PO SCH (22:10)
[2017-07-27] MEDS: [UNRECOGNIZED DRUG - OTHER] OP SCH (22:13)
[2017-07-27] MEDS ORDERED: DIPHENHYDRAMINE 25MG CAPSULE PO PRN (23:00)
[2017-07-28] MEDS: POLYVINYL ALCOHOL OPHTH DROPS 15ML BOTHEYE SCH ×6 (00:04→21:54)
[2017-07-28] MEDS: IPRATROPIUM/ALBUTEROL 0.5-3(2.5)MG/3ML NEB HHN SCH ×6 (04:08→23:54)
[2017-07-28] MEDS: ONDANSETRON HCL 4MG TABLET PO PRN ×2 (04:28→17:09)
[2017-07-28] MEDS: THROAT LOZENGES-BENZOCAINE/MENTH/CETYLPYRD CL LOZENGES MM SCH ×6 (04:57→21:52)
[2017-07-28] MEDS: PREDNISOLONE ACETATE 1% OPHTH DROPS 1ML RIGHTEYE SCH ×3 (05:04→18:15)
[2017-07-28] MEDS: FAMOTIDINE 20MG TABLET PO SCH (06:44)
[2017-07-28] MEDS: INSULIN LISPRO 100 UNITS/ML SUBCUT SCH ×4 (06:47→22:03)
[2017-07-28] MEDS: BLOOD SUGAR DIAGNOSTIC STRIP TEST SCH ×4 (07:26→21:55)
[2017-07-28 07:40] VITALS: BP 107/45
[2017-07-28] MEDS: CARVEDILOL 12.5MG TABLET PO SCH ×2 (08:29→21:00)
[2017-07-28] MEDS: ISOSORBIDE DINITRATE 20MG TABLET PO SCH ×2 (08:30→17:00)
[2017-07-28] MEDS: AMLODIPINE 10MG TABLET PO SCH (08:30)
[2017-07-28] MEDS: LETAIRIS 5 MG PO SCH (08:33)
[2017-07-28] MEDS: DOCUSATE SODIUM 100MG CAPSULE PO SCH ×2 (08:40→17:09)
[2017-07-28] MEDS: GUAIFENESIN 600MG ER TABLET PO SCH ×2 (08:40→21:52)
[2017-07-28] MEDS: ASPIRIN 81MG TABLET PO SCH (08:40)
[2017-07-28] MEDS: GABAPENTIN 300MG CAPSULE PO SCH ×2 (08:40→17:09)
[2017-07-28] MEDS: TRIAMCINOLONE ACETONIDE 0.025% OINT 15GM TOP SCH ×2 (08:41→21:00)
[2017-07-28] MEDS: [UNRECOGNIZED DRUG - OTHER] OP SCH ×4 (08:41→21:56)
[2017-07-28] MEDS: KETOROLAC TROMETHAMINE 0.5% OPHTH 3ML RIGHTEYE SCH ×3 (08:44→18:15)
[2017-07-28] MEDS: ENOXAPARIN 40MG/0.4ML SYR SUBCUT SCH (08:45)
[2017-07-28] MEDS: LIDOCAINE 5% PATCH TOP SCH (08:45)
[2017-07-28] MEDS: AZELASTINE HCL XX SCH ×4 (08:50→18:13)
[2017-07-28] MEDS: INSULIN DETEMIR UD 100 UNITS/ML SYR SUBCUT SCH ×2 (12:23→22:04)
[2017-07-28 12:29] LABS: HEMATOCRIT. 30.1 % (36.0-48.0); HEMOGLOBIN. 9.9 g/dL (12.0-16.0); MEAN CORPUSCULAR HEMOGLOBIN 28.2 pg (28.0-32.0); MEAN CORPUSCULAR VOLUME 85.9 fL (81.0-99.0); MEAN PLATELET VOLUME 8.3 fl (7.4-10.4); PLATELET 165 x1000/uL (130-400); RED CELL DISTRIBUTION WIDTH 14.5 % (11.6-14.6)
[2017-07-28] MEDS: METOCLOPRAMIDE HCL 5MG TABLET PO SCH ×2 (13:30→17:09)
[2017-07-28] MEDS: ACETAMINOPHEN 325MG TABLET PO PRN (14:54)
[2017-07-28] MEDS: MONTELUKAST SODIUM 10MG TABLET PO SCH (17:09)
[2017-07-28 19:00] VITALS: BP 119/58
[2017-07-28 20:00] VITALS: BP 109/64
[2017-07-28] MEDS: ATORVASTATIN CALCIUM 10MG TABLET PO SCH (21:52)
[2017-07-28] MEDS: POLYETHYLENE GLYCOL 3350 (17GM) 1 DOSE PACK PO SCH (21:52)
[2017-07-28] MEDS: [UNRECOGNIZED DRUG - OTHER] OP SCH (21:56)
[2017-07-29] MEDS: THROAT LOZENGES-BENZOCAINE/MENTH/CETYLPYRD CL LOZENGES MM SCH ×6 (00:04→22:23)
[2017-07-29] MEDS: PREDNISOLONE ACETATE 1% OPHTH DROPS 1ML RIGHTEYE SCH ×5 (00:04→22:24)
[2017-07-29 04:12] LABS: 25-HYDROXY VITAMIN D3 34 ng/mL (.)
[2017-07-29] MEDS: IPRATROPIUM/ALBUTEROL 0.5-3(2.5)MG/3ML NEB HHN SCH ×5 (05:32→21:01)
[2017-07-29] MEDS: BLOOD SUGAR DIAGNOSTIC STRIP TEST SCH ×4 (05:57→21:00)
[2017-07-29] MEDS: POLYVINYL ALCOHOL OPHTH DROPS 15ML BOTHEYE SCH ×6 (05:57→22:25)
[2017-07-29] MEDS: FAMOTIDINE 20MG TABLET PO SCH (05:58)
[2017-07-29] MEDS: METOCLOPRAMIDE HCL 5MG TABLET PO SCH ×4 (05:58→16:57)
[2017-07-29 07:44] LABS: HEMOGLOBIN. 9.6 g/dL (12.0-16.0); MEAN CORPUSCULAR HEMOGLOBIN 28.9 pg (28.0-32.0); MEAN CORPUSCULAR VOLUME 84.6 fL (81.0-99.0); MEAN PLATELET VOLUME 8.2 fl (7.4-10.4); PLATELET 128 x1000/uL (130-400); RED BLOOD CELL COUNT 3.31 mill/uL (4.2-5.4); RED CELL DISTRIBUTION WIDTH 14.3 % (11.6-14.6)
[2017-07-29 08:00] VITALS: BP 120/56
[2017-07-29] MEDS: [UNRECOGNIZED DRUG - OTHER] OP SCH ×4 (08:35→22:24)
[2017-07-29] MEDS: KETOROLAC TROMETHAMINE 0.5% OPHTH 3ML RIGHTEYE SCH ×3 (08:36→16:59)
[2017-07-29] MEDS: DOCUSATE SODIUM 100MG CAPSULE PO SCH ×2 (08:55→17:00)
[2017-07-29] MEDS ORDERED: DIATR MEGLU/DIATRIZOATE SOLN 120ML ONE (09:00)
[2017-07-29] MEDS: TRIAMCINOLONE ACETONIDE 0.025% OINT 15GM TOP SCH ×2 (09:00→22:22)
[2017-07-29] MEDS: CARVEDILOL 12.5MG TABLET PO SCH ×2 (11:41→21:00)
[2017-07-29] MEDS: GUAIFENESIN 600MG ER TABLET PO SCH ×2 (11:41→22:23)
[2017-07-29] MEDS: AMLODIPINE 10MG TABLET PO SCH (11:42)
[2017-07-29] MEDS: ISOSORBIDE DINITRATE 20MG TABLET PO SCH ×2 (11:42→16:57)
[2017-07-29] MEDS: GABAPENTIN 300MG CAPSULE PO SCH ×2 (11:42→16:56)
[2017-07-29] MEDS: ASPIRIN 81MG TABLET PO SCH (11:43)
[2017-07-29] MEDS: TRAMADOL 50MG TABLET PO PRN (11:43)
[2017-07-29] MEDS: ENOXAPARIN 40MG/0.4ML SYR SUBCUT SCH (11:44)
[2017-07-29] MEDS: AZELASTINE HCL XX SCH ×3 (11:44→16:54)
[2017-07-29] MEDS: INSULIN LISPRO 100 UNITS/ML SUBCUT SCH ×4 (11:51→22:35)
[2017-07-29] MEDS: LIDOCAINE 5% PATCH TOP SCH (11:55)
[2017-07-29] MEDS: LETAIRIS 5 MG PO SCH (11:56)
[2017-07-29] MEDS: INSULIN DETEMIR UD 100 UNITS/ML SYR SUBCUT SCH ×2 (12:01→22:36)
[2017-07-29 14:18] LABS: PLATELET ESTIMATE NORMAL
[2017-07-29] MEDS: MONTELUKAST SODIUM 10MG TABLET PO SCH (16:57)
[2017-07-29 17:08] LABS: PLATELET ESTIMATE NORMAL
[2017-07-29 20:00] VITALS: BP 110/60
[2017-07-29 21:00] VITALS: BP_SYST 107; BP_SYST 126; BP_DIAS 62; BP_DIAS 72
[2017-07-29] MEDS: POLYETHYLENE GLYCOL 3350 (17GM) 1 DOSE PACK PO SCH (22:22)
[2017-07-29] MEDS: OMEPRAZOLE 20MG CAPSULE EXTENDED RELEASE PO SCH (22:22)
[2017-07-29] MEDS: ATORVASTATIN CALCIUM 10MG TABLET PO SCH (22:23)
[2017-07-29] MEDS: [UNRECOGNIZED DRUG - OTHER] OP SCH (22:26)
[2017-07-30] MEDS: IPRATROPIUM/ALBUTEROL 0.5-3(2.5)MG/3ML NEB HHN SCH ×6 (00:35→20:42)
[2017-07-30] MEDS: METOCLOPRAMIDE HCL 5MG TABLET PO SCH ×4 (00:52→18:44)
[2017-07-30] MEDS: POLYVINYL ALCOHOL OPHTH DROPS 15ML BOTHEYE SCH ×6 (00:52→21:28)
[2017-07-30] MEDS: THROAT LOZENGES-BENZOCAINE/MENTH/CETYLPYRD CL LOZENGES MM SCH ×6 (00:53→21:19)
[2017-07-30] MEDS: FAMOTIDINE 20MG TABLET PO SCH (06:00)
[2017-07-30] MEDS: BLOOD SUGAR DIAGNOSTIC STRIP TEST SCH ×4 (06:01→21:24)
[2017-07-30] MEDS: PREDNISOLONE ACETATE 1% OPHTH DROPS 1ML RIGHTEYE SCH ×3 (06:01→18:45)
[2017-07-30] MEDS: INSULIN LISPRO 100 UNITS/ML SUBCUT SCH ×4 (06:06→21:50)
[2017-07-30 07:26] LABS: HEMOGLOBIN. 9.2 g/dL (12.0-16.0); MEAN CORPUSCULAR HEMOGLOBIN 28.7 pg (28.0-32.0); MEAN CORPUSCULAR VOLUME 84.3 fL (81.0-99.0); MEAN PLATELET VOLUME 8.4 fl (7.4-10.4); PLATELET 135 x1000/uL (130-400); RED CELL DISTRIBUTION WIDTH 14.6 % (11.6-14.6)
[2017-07-30 08:00] VITALS: BP 119/50
[2017-07-30] MEDS: AZELASTINE HCL XX SCH ×3 (08:43→18:45)
[2017-07-30] MEDS: ASPIRIN 81MG TABLET PO SCH (08:44)
[2017-07-30] MEDS: GABAPENTIN 300MG CAPSULE PO SCH ×2 (08:44→18:44)
[2017-07-30] MEDS: ISOSORBIDE DINITRATE 20MG TABLET PO SCH ×2 (08:44→17:00)
[2017-07-30] MEDS: GUAIFENESIN 600MG ER TABLET PO SCH ×2 (08:44→21:23)
[2017-07-30] MEDS: DOCUSATE SODIUM 100MG CAPSULE PO SCH ×2 (08:44→18:44)
[2017-07-30] MEDS: AMLODIPINE 10MG TABLET PO SCH (08:44)
[2017-07-30] MEDS: OMEPRAZOLE 20MG CAPSULE EXTENDED RELEASE PO SCH ×2 (08:45→21:21)
[2017-07-30] MEDS: CARVEDILOL 12.5MG TABLET PO SCH ×2 (08:45→21:00)
[2017-07-30] MEDS: LETAIRIS 5 MG PO SCH (08:46)
[2017-07-30] MEDS: ENOXAPARIN 40MG/0.4ML SYR SUBCUT SCH (08:47)
[2017-07-30] MEDS: KETOROLAC TROMETHAMINE 0.5% OPHTH 3ML RIGHTEYE SCH ×3 (08:47→18:44)
[2017-07-30] MEDS: TRIAMCINOLONE ACETONIDE 0.025% OINT 15GM TOP SCH (08:47)
[2017-07-30] MEDS: [UNRECOGNIZED DRUG - OTHER] OP SCH ×4 (08:47→21:30)
[2017-07-30] MEDS: LIDOCAINE 5% PATCH TOP SCH (08:48)
[2017-07-30] MEDS: ACETAMINOPHEN 325MG TABLET PO PRN (10:19)
[2017-07-30] MEDS: INSULIN DETEMIR UD 100 UNITS/ML SYR SUBCUT SCH ×2 (10:23→21:51)
[2017-07-30 13:19] LABS: PLATELET ESTIMATE NORMAL
[2017-07-30] MEDS: MONTELUKAST SODIUM 10MG TABLET PO SCH (18:44)
[2017-07-30 20:00] VITALS: BP 144/70
[2017-07-30] MEDS: [UNRECOGNIZED DRUG - OTHER] OP SCH (21:20)
[2017-07-30] MEDS: POLYETHYLENE GLYCOL 3350 (17GM) 1 DOSE PACK PO SCH (21:23)
[2017-07-30] MEDS: ATORVASTATIN CALCIUM 10MG TABLET PO SCH (21:23)
[2017-07-30] MEDS: TRAMADOL 50MG TABLET PO PRN (21:23)
[2017-07-30] MEDS ORDERED: TRIAMCINOLONE ACETONIDE 0.025% OINT 15GM TOP SCH (21:55)
[2017-07-30] MEDS: TRIAMCINOLONE ACETONIDE 0.025% CREAM 15GM TOP SCH (22:41)
[2017-07-31] MEDS: IPRATROPIUM/ALBUTEROL 0.5-3(2.5)MG/3ML NEB HHN SCH ×4 (00:09→14:55)
[2017-07-31] MEDS: POLYVINYL ALCOHOL OPHTH DROPS 15ML BOTHEYE SCH ×5 (00:29→16:42)
[2017-07-31] MEDS: METOCLOPRAMIDE HCL 5MG TABLET PO SCH ×4 (00:29→17:26)
[2017-07-31] MEDS: THROAT LOZENGES-BENZOCAINE/MENTH/CETYLPYRD CL LOZENGES MM SCH ×5 (00:29→16:41)
[2017-07-31] MEDS: PREDNISOLONE ACETATE 1% OPHTH DROPS 1ML RIGHTEYE SCH ×4 (00:32→17:27)
[2017-07-31] MEDS: BLOOD SUGAR DIAGNOSTIC STRIP TEST SCH ×3 (06:40→16:42)
[2017-07-31] MEDS: INSULIN LISPRO 100 UNITS/ML SUBCUT SCH ×3 (06:43→17:32)
[2017-07-31 06:52] LABS: HEMATOCRIT. 27.1 % (36.0-48.0); HEMOGLOBIN. 9.2 g/dL (12.0-16.0); MEAN CORPUSCULAR HEMOGLOBIN 28.9 pg (28.0-32.0); MEAN CORPUSCULAR VOLUME 85.4 fL (81.0-99.0); MEAN PLATELET VOLUME 8.5 fl (7.4-10.4); PLATELET 137 x1000/uL (130-400); RED BLOOD CELL COUNT 3.18 mill/uL (4.2-5.4); RED CELL DISTRIBUTION WIDTH 14.7 % (11.6-14.6)
[2017-07-31 08:00] VITALS: BP 105/43
[2017-07-31] MEDS: GUAIFENESIN 600MG ER TABLET PO SCH (08:50)
[2017-07-31] MEDS: ASPIRIN 81MG TABLET PO SCH (08:50)
[2017-07-31] MEDS: OMEPRAZOLE 20MG CAPSULE EXTENDED RELEASE PO SCH (08:50)
[2017-07-31] MEDS: DOCUSATE SODIUM 100MG CAPSULE PO SCH ×2 (08:50→16:40)
[2017-07-31] MEDS: GABAPENTIN 300MG CAPSULE PO SCH ×2 (08:50→16:40)
[2017-07-31] MEDS: [UNRECOGNIZED DRUG - OTHER] OP SCH ×3 (08:51→16:44)
[2017-07-31] MEDS: AZELASTINE HCL XX SCH ×3 (08:51→16:42)
[2017-07-31] MEDS: TRIAMCINOLONE ACETONIDE 0.025% CREAM 15GM TOP SCH (08:52)
[2017-07-31] MEDS: KETOROLAC TROMETHAMINE 0.5% OPHTH 3ML RIGHTEYE SCH ×3 (08:52→16:41)
[2017-07-31] MEDS: LETAIRIS 5 MG PO SCH (08:52)
[2017-07-31] MEDS: ENOXAPARIN 40MG/0.4ML SYR SUBCUT SCH (08:53)
[2017-07-31] MEDS: CARVEDILOL 12.5MG TABLET PO SCH (08:56)
[2017-07-31] MEDS: ISOSORBIDE DINITRATE 20MG TABLET PO SCH ×2 (08:56→16:40)
[2017-07-31] MEDS: AMLODIPINE 10MG TABLET PO SCH (08:56)
[2017-07-31 09:00] VITALS: BP_SYST 104; BP_SYST 109; BP_DIAS 53; BP_DIAS 54
[2017-07-31] MEDS: LIDOCAINE 5% PATCH TOP SCH (09:02)
[2017-07-31] MEDS: INSULIN DETEMIR UD 100 UNITS/ML SYR SUBCUT SCH (09:07)
[2017-07-31 12:59] VITALS: BP 20/105
[2017-07-31 14:20] LABS: PLATELET ESTIMATE NORMAL
[2017-07-31] MEDS: MONTELUKAST SODIUM 10MG TABLET PO SCH (16:40)
== END 2017-07-31 18:35 | disposition home health service (06) | DRG 73 ==
PROVIDERS: ADMIT Physical Medicine & Rehabilitation Spinal Cord Injury Medicine; ATTEND Internal Medicine
PROC: 5A1D60Z (ICD-10-PCS; principal; 2017-07-18)
PROC: 02HV33Z Insertion of Infusion Device into Superior Vena Cava, Percutaneous Approach (ICD-10-PCS; 2017-07-25)
PROC: B548ZZA Ultrasonography of Superior Vena Cava, Guidance (ICD-10-PCS; 2017-07-25)
PROC: B5181ZA Fluoroscopy of Superior Vena Cava using Low Osmolar Contrast, Guidance (ICD-10-PCS; 2017-07-25)
DX: G62.81 Critical illness polyneuropathy (principal); R65.20 Severe sepsis without septic shock; N17.0 Acute kidney failure with tubular necrosis; G82.50 Quadriplegia, unspecified; I50.33 Acute on chronic diastolic (congestive) heart failure; A41.9 Sepsis, unspecified organism; J18.9 Pneumonia, unspecified organism; N18.6 End stage renal disease; E46 Unspecified protein-calorie malnutrition; E66.2 Morbid (severe) obesity with alveolar hypoventilation; L03.115 Cellulitis of right lower limb; L03.116 Cellulitis of left lower limb; N39.0 Urinary tract infection, site not specified; I13.2 Hypertensive heart and chronic kidney disease with heart failure and with stage 5 chronic kidney disease, or end stage renal disease; E87.1 Hypo-osmolality and hyponatremia; Z68.42 Body mass index [BMI] 45.0-49.9, adult; L97.329 Non-pressure chronic ulcer of left ankle with unspecified severity; L97.319 Non-pressure chronic ulcer of right ankle with unspecified severity; I27.2 Other secondary pulmonary hypertension; E11.22 Type 2 diabetes mellitus with diabetic chronic kidney disease; M17.9 Osteoarthritis of knee, unspecified; K21.9 Gastro-esophageal reflux disease without esophagitis; I87.8 Other specified disorders of veins; I87.2 Venous insufficiency (chronic) (peripheral); I25.10 Atherosclerotic heart disease of native coronary artery without angina pectoris; H54.8 Legal blindness, as defined in USA; H26.9 Unspecified cataract; R53.81 Other malaise; E11.65 Type 2 diabetes mellitus with hyperglycemia; E11.42 Type 2 diabetes mellitus with diabetic polyneuropathy; F41.9 Anxiety disorder, unspecified; E87.5 Hyperkalemia; E78.5 Hyperlipidemia, unspecified; E78.1 Pure hyperglyceridemia; E78.00 Pure hypercholesterolemia, unspecified; F06.31 Mood disorder due to known physiological condition with depressive features; E11.622 Type 2 diabetes mellitus with other skin ulcer; E11.319 Type 2 diabetes mellitus with unspecified diabetic retinopathy without macular edema; D64.9 Anemia, unspecified; Z99.2 Dependence on renal dialysis; F32.9 Major depressive disorder, single episode, unspecified; B96.1 Klebsiella pneumoniae [K. pneumoniae] as the cause of diseases classified elsewhere; Z95.5 Presence of coronary angioplasty implant and graft; Z83.3 Family history of diabetes mellitus; Z82.49 Family history of ischemic heart disease and other diseases of the circulatory system; Z79.4 Long term (current) use of insulin; Z90.89 Acquired absence of other organs; Z98.49 Cataract extraction status, unspecified eye; Z91.013 Allergy to seafood; Z79.899 Other long term (current) drug therapy
CPT/HCPCS: 36415; 36558; 36589; 71010; 71020; 74250; 76937; 77001; 80048; 80053; 80061; 82270; 82306; 82607; 82728; 82746; 82962; 83036; 83540; 83550; 83735; 84100; 84134; 84443; 84630; 85025; 85027; 85610; 85730; 87040; 92523; 93923; 94640; 94660; 94664; 97110; 97116; 97163; 97166; 97530; 97535; C1750; C1893; J0690; J1642; J1650; J1815; J2405; J3010; J3490; J7030; J7040; J7050; J7620; J8597; Q0162; Q9963

== ENCOUNTER 2018-09-17 10:07 | Day surgery (SDC) | payer MEDICARE, MEDICAID ==
[~2018-09-17] VITALS: Ht 157.5 cm; Wt 116.6 kg
[~2018-09-17 10:07] MED LIST changes: -ALBUTEROL SULFATE IH; +AMBR5TAB3 PO; +AMLO5TAB4 PO; +AMLO5TAB88 PO; +ASCO-316 PO; -ASPI-1159 PO; -CLOP75TA33 PO; +DORZ10DR9 LEFTEYE; +ERYT1OIN6 RIGHTEYE; -FERR-63 PO; +FERR325T6 PO; -FURO40TA5 PO; -HUMOLOG SQ; +INSU100I13 SQ; +INSU100I19 SQ; -ISOS40TA17 PO; -JUNUVIA PO; -LETAIRIS PO; -LEVEMIR SQ; -LOSA25TA12 PO; -MONT10TA21 PO; +MONT10TA24 PO; -NITR0.4T SL; +NITR0.4T49 SL; +PANT20TA3 PO; -PANT40TA4 PO; +PEG15DRO5 EACHEYE; -POTA10TA15 PO; +SITA50TA3 PO; +SODIUM CHLORIDE 0.9% 500 ML IV ONE; -SUPER B-COMPLEX PO; +VITA1CAP19 PO
[2018-09-17 11:55] LABS: BASOPHILS % 0.6 % (0.0-2.0); EOSINOPHILS % 4.4 % (0.0-5.0); HEMATOCRIT. 27.7 % (36.0-48.0); HEMOGLOBIN. 9.2 g/dL (12.0-16.0); LYMPHOCYTES % 23.7 % (20.0-50.0); MEAN CORPUSCULAR HEMOGLOBIN 30.8 pg (28.0-32.0); MEAN CORPUSCULAR VOLUME 92.9 fL (81.0-99.0); MONOCYTES % 11.2 % (2.0-8.0); NEUTROPHILS % 60.1 % (40.0-76.0); PLATELET 156 x1000/uL (130-400); RED BLOOD CELL COUNT 2.98 mill/uL (4.2-5.4); RED CELL DISTRIBUTION WIDTH 17.5 % (11.6-14.6)
[2018-09-17 12:02] LABS: INR 1.1; PROTHROMBIN TIME 10.9 sec (9.1-11.1)
[2018-09-17] MEDS ORDERED: GELATIN SPONGE,ABSORBABLE 12-7MM SPONGE ONE (12:12)
[2018-09-17] MEDS ORDERED: BUPIVACAINE HCL/PF 0.5% (5MG/ML) 10ML ONE (12:13)
[2018-09-17] MEDS ORDERED: BACITRACIN ZINC 15GM TUBE TOP ONE ×2 (12:13→14:00)
[2018-09-17] MEDS ORDERED: HEPARIN SODIUM 1,000 UNIT/1ML VIAL IV ONE ×2 (12:14→16:45)
[2018-09-17] MEDS ORDERED: BACITRACIN 50,000 UNITS/VIAL ONE (12:14)
[2018-09-17] MEDS ORDERED: LIDOCAINE HCL/PF 1% 10 MG/ML 5ML VIAL ONE (12:14)
[2018-09-17] MEDS ORDERED: THROMBIN (BOVINE) 5000 UNITS/VIAL TOP ONE ×2 (12:15→12:26)
[2018-09-17] MEDS ORDERED: PROPOFOL 10MG/ML 100ML 100 ML IV ONE (12:29)
[2018-09-17] MEDS ORDERED: GLYCOPYRROLATE 0.2 MG/ML 2ML VIAL ONE (12:30)
[2018-09-17] MEDS ORDERED: IPRATROPIUM/ALBUTEROL 0.5-3(2.5)MG/3ML NEB ONE (14:29)
[2018-09-17] MEDS ORDERED: ONDANSETRON HCL 4MG/2ML INJ IV PRN (14:45)
[2018-09-17] MEDS ORDERED: HYDROMORPHONE HCL/PF 2MG/ML CPJ IV PRN (14:45)
[2018-09-17] MEDS ORDERED: IPRATROPIUM/ALBUTEROL 0.5-3(2.5)MG/3ML NEB HHN SCH (17:30)
== END 2018-09-17 17:00 | disposition home or self-care (01) ==
LOC: OR 10:07
PROVIDERS: ATTEND Surgery Vascular Surgery
DX: N18.9 Chronic kidney disease, unspecified (principal); T82.9XXA Unspecified complication of cardiac and vascular prosthetic device, implant and graft, initial encounter; Y83.9 Surgical procedure, unspecified as the cause of abnormal reaction of the patient, or of later complication, without mention of misadventure at the time of the procedure; Z79.899 Other long term (current) drug therapy; Z79.4 Long term (current) use of insulin
CPT/HCPCS: 36415; 36830; 80048; 82962; 85025; 85610; 85730; 93005; C1768; J1644; J2704; J3490; J7620; J7040

== ENCOUNTER 2018-11-05 11:11 | Day surgery (SDC) | payer MEDICARE, MEDICAID ==
[~2018-11-05] VITALS: Ht 157.5 cm; Wt 116.6 kg
[~2018-11-05 11:11] MED LIST changes: -SODIUM CHLORIDE 0.9% 500 ML IV ONE
[2018-11-05] MEDS ORDERED: SODIUM CHLORIDE 0.9% 500 ML IV ONE (12:00)
[2018-11-05] MEDS ORDERED: GELATIN SPONGE,ABSORBABLE 12-7MM SPONGE ONE (12:06)
[2018-11-05] MEDS ORDERED: BACITRACIN 15GM TUBE TOP ONE (12:06)
[2018-11-05] MEDS ORDERED: HEPARIN SODIUM 1,000 UNIT/1ML VIAL IV ONE (12:07)
[2018-11-05] MEDS ORDERED: BUPIVACAINE HCL/PF 0.5% (5MG/ML) 10ML ONE (12:07)
[2018-11-05] MEDS ORDERED: THROMBIN (BOVINE) 5000 UNITS/VIAL TOP ONE (12:07)
[2018-11-05] MEDS ORDERED: SODIUM CHLORIDE 0.9% 1,000 ML ONE (12:08)
[2018-11-05] MEDS ORDERED: NORMAL SALINE 0.9% 10 ML SYR ONE (12:08)
[2018-11-05] MEDS ORDERED: SODIUM CHLORIDE 0.9% IRRIG SOL 1,000 ML IR ONE (12:08)
[2018-11-05] MEDS ORDERED: BACITRACIN 50,000 UNITS/VIAL ONE (12:08)
[2018-11-05] MEDS ORDERED: LIDOCAINE HCL/PF 1% 10 MG/ML 5ML VIAL ONE (12:08)
[2018-11-05 12:27] LABS: BASOPHILS % 0.4 % (0.0-2.0); EOSINOPHILS % 3.3 % (0.0-5.0); HEMATOCRIT. 37.3 % (36.0-48.0); HEMOGLOBIN. 12.1 g/dL (12.0-16.0); LYMPHOCYTES % 18.2 % (20.0-50.0); MEAN CORPUSCULAR HEMOGLOBIN 29.7 pg (28.0-32.0); MEAN CORPUSCULAR VOLUME 92.2 fL (81.0-99.0); MEAN PLATELET VOLUME 7.8 fl (7.4-10.4); MONOCYTES % 10.8 % (2.0-8.0); NEUTROPHILS % 67.3 % (40.0-76.0); PLATELET 137 x1000/uL (130-400); RED BLOOD CELL COUNT 4.05 mill/uL (4.2-5.4); RED CELL DISTRIBUTION WIDTH 18.1 % (11.6-14.6)
[2018-11-05] MEDS ORDERED: FENTANYL CITRATE/PF 50MCG/ML 2ML VIAL ONE (12:40)
[2018-11-05] MEDS ORDERED: PROPOFOL 200MG/20ML VIAL IV ONE (12:40)
[2018-11-05] MEDS ORDERED: MIDAZOLAM HCL 2 MG/2 ML VIAL ONE (12:42)
[2018-11-05 12:59] LABS: INR 1.1; PROTHROMBIN TIME 11.3 sec (9.1-11.1)
[2018-11-05 13:01] LABS: PARTIAL THROMBOPLASTIN TIME > 200.0 sec (23.4-31.0)
[2018-11-05] MEDS ORDERED: ONDANSETRON HCL 4MG/2ML INJ IV PRN (14:00)
[2018-11-05] MEDS ORDERED: MEPERIDINE HCL/PF 25MG/ML CPJ IV PRN (14:00)
[2018-11-05] MEDS ORDERED: LABETALOL 5MG/ML SYR 20 MG/4 ML SYRINGE IV PRN (14:00)
[2018-11-05] MEDS: HYDROMORPHONE HCL/PF 2MG/ML CPJ IV PRN ×3 (14:16→14:49)
[2018-11-05] MEDS ORDERED: HYDROMORPHONE HCL/PF 2MG/ML CPJ ONE (14:20)
[2018-11-05 14:49] VITALS: BP 110/60
[2018-11-05] MEDS ORDERED: HEPARIN 100 UNITS/1 ML VIAL IVF PRN (15:15)
[2018-11-05] MEDS ORDERED: HEPARIN SODIUM 1,000 UNIT/1ML VIAL IV SCH (15:15)
== END 2018-11-05 16:00 | disposition home or self-care (01) ==
LOC: OR 11:11
PROVIDERS: ATTEND Surgery Vascular Surgery
DX: T82.868A Thrombosis due to vascular prosthetic devices, implants and grafts, initial encounter (principal); I13.2 Hypertensive heart and chronic kidney disease with heart failure and with stage 5 chronic kidney disease, or end stage renal disease; E10.22 Type 1 diabetes mellitus with diabetic chronic kidney disease; N18.6 End stage renal disease; I50.9 Heart failure, unspecified; K21.9 Gastro-esophageal reflux disease without esophagitis; D64.9 Anemia, unspecified; J45.909 Unspecified asthma, uncomplicated; J44.9 Chronic obstructive pulmonary disease, unspecified; G47.33 Obstructive sleep apnea (adult) (pediatric); I48.91 Unspecified atrial fibrillation; M19.90 Unspecified osteoarthritis, unspecified site; E66.01 Morbid (severe) obesity due to excess calories; Z68.42 Body mass index [BMI] 45.0-49.9, adult; Z79.899 Other long term (current) drug therapy; Z99.2 Dependence on renal dialysis; Z82.49 Family history of ischemic heart disease and other diseases of the circulatory system; Z83.3 Family history of diabetes mellitus; Z86.73 Personal history of transient ischemic attack (TIA), and cerebral infarction without residual deficits; Z80.8 Family history of malignant neoplasm of other organs or systems; Y83.8 Other surgical procedures as the cause of abnormal reaction of the patient, or of later complication, without mention of misadventure at the time of the procedure; Y92.89 Other specified places as the place of occurrence of the external cause
CPT/HCPCS: 36415; 36831; 80048; 82962; 85025; 85610; 85730; 88304; 93005; A4216; C1884; J1170; J1644; J2250; J3010; J3490; J7030; J2704; J7040

== ENCOUNTER 2019-01-07 16:09 | Inpatient (IN) | payer MEDICARE, MEDICAID ==
[~2019-01-07] VITALS: Ht 157.5 cm; Wt 111.6 kg
[~2019-01-07 16:09] MED LIST changes: -AMLO5TAB88 PO
[2019-01-07 20:29] LABS: CHLORIDE 96 mEq/L (98-107)
[2019-01-07 20:30] LABS: BASOPHILS % 0.4 % (0.0-2.0); EOSINOPHILS % 4.9 % (0.0-5.0); HEMATOCRIT. 27.3 % (36.0-48.0); HEMOGLOBIN. 8.8 g/dL (12.0-16.0); LYMPHOCYTES % 15.7 % (20.0-50.0); MEAN CORPUSCULAR HEMOGLOBIN 30.3 pg (28.0-32.0); MEAN CORPUSCULAR VOLUME 93.8 fL (81.0-99.0); MEAN PLATELET VOLUME 8.7 fl (7.4-10.4); MONOCYTES % 8.1 % (2.0-8.0); NEUTROPHILS % 70.9 % (40.0-76.0); PLATELET 136 x1000/uL (130-400); RED CELL DISTRIBUTION WIDTH 19.5 % (11.6-14.6)
[2019-01-07 20:32] LABS: INR 1.1; PARTIAL THROMBOPLASTIN TIME 28.5 sec (23.4-31.0); PROTHROMBIN TIME 10.6 sec (9.1-11.1)
[2019-01-07] MEDS ORDERED: DEXTROSE 50% WATER 50ML SYRINGE IV ONE (21:00)
[2019-01-07] MEDS ORDERED: SODIUM BICARBONATE 8.4% 1 MEQ/ML 50ML SYR IV ONE (21:00)
[2019-01-07] MEDS ORDERED: ALBUTEROL (0.083%) 2.5MG/3ML NEB HHN ONE (21:00)
[2019-01-07] MEDS ORDERED: SODIUM POLYSTYRENE SULFONATE 15 G/60 ML BOT PO ONE (21:00)
[2019-01-07] MEDS ORDERED: INSULIN REGULAR (HUMULIN R) 300UNITS/3ML IV ONE (21:00)
[2019-01-07] MEDS ORDERED: DEXT 5%/0.45% NACL 1000ML 1,000 ML IV ONE (22:45)
[2019-01-07] MEDS ORDERED: CLONIDINE 0.1MG TABLET PO PRN (23:15)
[2019-01-08] VITALS (7 sets, daily range): BP systolic 90–161; BP diastolic 36–66
[2019-01-08] MEDS: HYDROMORPHONE HCL/PF 2MG/ML CPJ IV PRN (00:03)
[2019-01-08] MEDS: ONDANSETRON HCL 4MG/2ML INJ IV PRN (00:55)
[2019-01-08 07:31] LABS: HEMATOCRIT 26.5 % (36.0-48.0); HEMOGLOBIN 8.8 g/dL (12.0-16.0); MEAN CORPUSCULAR HEMOGLOBIN 30.7 pg (28.0-32.0); MEAN CORPUSCULAR VOLUME 92.8 fL (81.0-99.0); PLATELET 129 x1000/uL (130-400); RED BLOOD CELL COUNT 2.86 mill/uL (4.2-5.4); RED CELL DISTRIBUTION WIDTH 19.2 % (11.6-14.6)
[2019-01-08] MEDS ORDERED: LIDOCAINE HCL 1% 20ML VIAL (Pyxis) INJ ONE (08:56)
[2019-01-08] MEDS ORDERED: IODIXANOL 320MG/ML 100 ML BOTTLE IV ONE (08:56)
[2019-01-08] MEDS ORDERED: DIPHENHYDRAMINE 50MG/ML VIAL ONE (09:37)
[2019-01-08] MEDS ORDERED: FAMOTIDINE 20MG/2ML VIAL IV ONE (09:37)
[2019-01-08] MEDS ORDERED: HYDROCORTISONE SOD SUCCINATE 250 MG/2 ML VIAL ONE (09:37)
[2019-01-08] MEDS ORDERED: FENTANYL CITRATE/PF 50MCG/ML 2ML VIAL ONE (09:45)
[2019-01-08] MEDS ORDERED: MIDAZOLAM HCL 2 MG/2 ML VIAL ONE (09:45)
[2019-01-08] MEDS ORDERED: IOHEXOL-300 100 ML BOTTLE ONE (10:03)
[2019-01-08] MEDS ORDERED: IPRATROPIUM/ALBUTEROL 0.5-3(2.5)MG/3ML NEB HHN PRN (12:45)
[2019-01-08 13:03] LABS: BG BASE EXCESS -4.5 mmol/L (-2.0-2.0); BG CARBOXYHEMOGLOBIN 0.8 % (0.5-1.5); BG DEOXYHEMOGLOBIN 7.3 % (0.0-5.0); BG FRACTION INSPIRED OXYGEN 28; BG HCO3 ACT 22.3 mmol/L (22.0-26.0); BG METHEMOGLOBIN 0.2 % (0.0-1.5); BG OXYGEN SATURATION 92.6 % (92.0-98.5); BG OXYHEMOGLOBIN 91.7 % (94.0-97.0); BG PCO2 48.9 mmHg (35.0-45.0); BG PH 7.276 (7.350-7.450); BG PO2 77.6 mmHg (75.0-100.0); BG SAMPLE SITE RIGHT RADIAL; BG TOTAL HEMOGLOBIN 9.3 g/dL (12.0-18.0); BG VENT MODE NASAL CANNULA
[2019-01-08] MEDS ORDERED: HEPARIN SODIUM 1,000 UNIT/1ML VIAL IV ONE (15:18)
[2019-01-08] MEDS ORDERED: DORZOLAM/TIMOLOL 2.23/0.68% OPHTH DROPS 10ML LEFTEYE SCH (17:00)
[2019-01-08] MEDS: ACETAMINOPHEN 325MG TABLET PO PRN (17:46)
[2019-01-08] MEDS ORDERED: LEVOFLOXACIN 500MG PREMIX 100 ML IV NR (20:00)
[2019-01-08] MEDS: IPRATROPIUM/ALBUTEROL 0.5-3(2.5)MG/3ML NEB HHN SCH (20:29)
[2019-01-08] MEDS ORDERED: VANCOMYCIN 1500MG in DEXTROSE 5% WATER 250ML IV SCH (21:00)
[2019-01-08] MEDS: CARVEDILOL 12.5MG TABLET PO SCH (21:00)
[2019-01-08] MEDS: TIMOLOL MALEATE 0.5% OPHTH DROPS 5ML LEFTEYE SCH (22:06)
[2019-01-08] MEDS: DORZOLAMIDE 2% OPHTH 10 ML BOTTLE LEFTEYE SCH (22:06)
[2019-01-08] MEDS: ATORVASTATIN CALCIUM 10MG TABLET PO SCH (22:06)
[2019-01-08] MEDS: MONTELUKAST SODIUM 10MG TABLET PO SCH (22:07)
[2019-01-08] MEDS: LETAIRIS 5MG TABLET PO SCH (22:07)
[2019-01-08] MEDS: GABAPENTIN 300MG CAPSULE PO SCH (23:16)
[2019-01-09] VITALS (13 sets, daily range): BP systolic 84–148; BP diastolic 23–69
[2019-01-09] MEDS: ACETAMINOPHEN 325MG TABLET PO PRN ×2 (00:11→18:32)
[2019-01-09] MEDS: IPRATROPIUM/ALBUTEROL 0.5-3(2.5)MG/3ML NEB HHN SCH ×4 (01:10→21:03)
[2019-01-09] MEDS: GABAPENTIN 300MG CAPSULE PO SCH ×3 (06:37→22:01)
[2019-01-09 08:09] LABS: HEMATOCRIT. 27.5 % (36.0-48.0); HEMOGLOBIN. 8.9 g/dL (12.0-16.0); MEAN CORPUSCULAR HEMOGLOBIN 30.3 pg (28.0-32.0); MEAN CORPUSCULAR VOLUME 92.9 fL (81.0-99.0); MEAN PLATELET VOLUME 8.2 fl (7.4-10.4); PLATELET 128 x1000/uL (130-400); RED BLOOD CELL COUNT 2.95 mill/uL (4.2-5.4); RED CELL DISTRIBUTION WIDTH 19.4 % (11.6-14.6)
[2019-01-09] MEDS: LETAIRIS 5MG TABLET PO SCH (08:56)
[2019-01-09] MEDS: CARVEDILOL 12.5MG TABLET PO SCH ×2 (08:56→21:00)
[2019-01-09] MEDS: DORZOLAMIDE 2% OPHTH 10 ML BOTTLE LEFTEYE SCH ×2 (08:57→17:15)
[2019-01-09] MEDS: TIMOLOL MALEATE 0.5% OPHTH DROPS 5ML LEFTEYE SCH ×2 (08:57→17:15)
[2019-01-09] MEDS ORDERED: DULOXETINE HCL 60MG DR CAPSULE PO SCH (09:00)
[2019-01-09 11:36] LABS: BG BASE EXCESS -4.1 mmol/L (-2.0-2.0); BG CARBOXYHEMOGLOBIN 0.7 % (0.5-1.5); BG DEOXYHEMOGLOBIN 5.3 % (0.0-5.0); BG FRACTION INSPIRED OXYGEN 28; BG HCO3 ACT 21.2 mmol/L (22.0-26.0); BG METHEMOGLOBIN 0.3 % (0.0-1.5); BG OXYGEN SATURATION 94.6 % (92.0-98.5); BG OXYHEMOGLOBIN 93.7 % (94.0-97.0); BG PH 7.343 (7.350-7.450); BG PO2 85.9 mmHg (75.0-100.0); BG SAMPLE SITE RIGHT BRACHIAL; BG TOTAL HEMOGLOBIN 8.8 g/dL (12.0-18.0); BG VENT MODE NASAL CANNULA
[2019-01-09] MEDS ORDERED: CALCIUM CHLORIDE 1,000 MG in DEXT 5% WATER 90 ML IV NR (12:30)
[2019-01-09] MEDS ORDERED: INSULIN REGULAR (HUMULIN R) 300UNITS/3ML IV NR (12:30)
[2019-01-09] MEDS ORDERED: DEXTROSE 50% WATER 50ML SYRINGE IV PRN (13:00)
[2019-01-09 13:12] LABS: PLATELET ESTIMATE SLIGHTLY DECREASED
[2019-01-09] MEDS ORDERED: LEVOFLOXACIN 250MG PREMIX 50 ML IV SCH (18:00)
[2019-01-09 18:37] LABS: PHOSPHORUS 7.4 mg/dL (2.5-4.9)
[2019-01-09] MEDS: NYSTATIN POWDER 15GM TOP SCH (20:00)
[2019-01-09] MEDS: MONTELUKAST SODIUM 10MG TABLET PO SCH (22:01)
[2019-01-09] MEDS: ATORVASTATIN CALCIUM 10MG TABLET PO SCH (22:01)
[2019-01-10] VITALS (10 sets, daily range): BP systolic 93–147; BP diastolic 45–98
[2019-01-10] MEDS: IPRATROPIUM/ALBUTEROL 0.5-3(2.5)MG/3ML NEB HHN SCH ×4 (02:29→22:00)
[2019-01-10] MEDS: GABAPENTIN 300MG CAPSULE PO SCH ×3 (05:39→21:29)
[2019-01-10] MEDS ORDERED: GELATIN SPONGE,ABSORBABLE 12-7MM SPONGE ONE (08:49)
[2019-01-10] MEDS ORDERED: LIDOCAINE HCL 1% 20ML VIAL (Pyxis) INJ ONE (08:49)
[2019-01-10] MEDS ORDERED: NORMAL SALINE 0.9% 10 ML SYR ONE (08:50)
[2019-01-10] MEDS ORDERED: BACITRACIN 15GM TUBE TOP ONE (08:50)
[2019-01-10] MEDS ORDERED: BUPIVACAINE HCL/PF 0.5% (5MG/ML) 10ML ONE (08:50)
[2019-01-10] MEDS ORDERED: HEPARIN SODIUM 1,000 UNIT/1ML VIAL IV ONE ×2 (08:50→10:47)
[2019-01-10] MEDS ORDERED: THROMBIN (BOVINE) 5000 UNITS/VIAL TOP ONE (08:51)
[2019-01-10] MEDS ORDERED: BACITRACIN 50,000 UNITS/VIAL ONE (08:51)
[2019-01-10] MEDS: LETAIRIS 5MG TABLET PO SCH (09:00)
[2019-01-10] MEDS: DORZOLAMIDE 2% OPHTH 10 ML BOTTLE LEFTEYE SCH ×2 (09:00→17:15)
[2019-01-10] MEDS: CARVEDILOL 12.5MG TABLET PO SCH ×2 (09:00→21:00)
[2019-01-10] MEDS: NYSTATIN POWDER 15GM TOP SCH ×2 (09:00→17:15)
[2019-01-10] MEDS: TIMOLOL MALEATE 0.5% OPHTH DROPS 5ML LEFTEYE SCH ×2 (09:00→17:15)
[2019-01-10] MEDS ORDERED: PROPOFOL 200MG/20ML VIAL IV ONE (09:00)
[2019-01-10] MEDS ORDERED: LIDOCAINE HCL/PF 1% 10 MG/ML 5ML VIAL ONE (09:01)
[2019-01-10] MEDS ORDERED: PHENYLEPHRINE HCL 10 MG/ML 1ML (IV VIAL) IV ONE (09:19)
[2019-01-10] MEDS ORDERED: SODIUM CHLORIDE 0.9% 10ML VIAL ONE (09:20)
[2019-01-10] MEDS ORDERED: MIDAZOLAM HCL 2 MG/2 ML VIAL ONE (09:21)
[2019-01-10 09:33] LABS: BASOPHILS % 0.5 % (0.0-2.0); EOSINOPHILS % 1.9 % (0.0-5.0); HEMOGLOBIN. 9.3 g/dL (12.0-16.0); LYMPHOCYTES % 14.9 % (20.0-50.0); MEAN CORPUSCULAR HEMOGLOBIN 29.7 pg (28.0-32.0); MEAN CORPUSCULAR VOLUME 92.7 fL (81.0-99.0); MONOCYTES % 8.1 % (2.0-8.0); NEUTROPHILS % 74.6 % (40.0-76.0); RED BLOOD CELL COUNT 3.12 mill/uL (4.2-5.4); RED CELL DISTRIBUTION WIDTH 19.3 % (11.6-14.6)
[2019-01-10] MEDS ORDERED: ROCURONIUM BROMIDE 10MG/ML VIAL 5ML IV ONE (09:54)
[2019-01-10] MEDS ORDERED: HEPARIN 5000 UNITS/ML VIAL ONE (10:00)
[2019-01-10] MEDS ORDERED: FENTANYL CITRATE/PF 50MCG/ML 2ML VIAL ONE (10:04)
[2019-01-10] MEDS ORDERED: CEFAZOLIN SODIUM 1000MG/VIAL ONE (10:26)
[2019-01-10] MEDS ORDERED: PAPAVERINE HCL 30 MG/ML 2ML IV ONE (10:55)
[2019-01-10] MEDS ORDERED: ONDANSETRON HCL 4MG/2ML INJ IV PRN (12:00)
[2019-01-10] MEDS ORDERED: HYDROMORPHONE HCL/PF 2MG/ML CPJ IV PRN (12:00)
[2019-01-10] MEDS: CALCIUM ACETATE 667MG CAPSULE PO SCH ×2 (12:18→17:15)
[2019-01-10 13:18] LABS: PLATELET 136 x1000/uL (130-400)
[2019-01-10] MEDS ORDERED: DEXTROSE 50% WATER 50ML SYRINGE IV PRN (15:15)
[2019-01-10] MEDS: ACETAMINOPHEN 325MG TABLET PO PRN (16:44)
[2019-01-10] MEDS: BLOOD SUGAR DIAGNOSTIC STRIP TEST SCH ×2 (17:12→21:32)
[2019-01-10] MEDS: LEVOFLOXACIN 250MG PREMIX 50 ML IV SCH (17:15)
[2019-01-10] MEDS: INSULIN LISPRO 100 UNITS/ML SUBCUT SCH ×2 (17:34→21:00)
[2019-01-10] MEDS: MONTELUKAST SODIUM 10MG TABLET PO SCH (21:29)
[2019-01-10] MEDS: ATORVASTATIN CALCIUM 10MG TABLET PO SCH (21:30)
[2019-01-10] MEDS: TRAMADOL 50MG TABLET PO PRN (21:30)
[2019-01-10] MEDS ORDERED: VANCOMYCIN 2,000 MG in DEXT 5% WATER 500 ML IV NR (22:00)
[2019-01-11] VITALS (10 sets, daily range): BP systolic 96–125; BP diastolic 46–65
[2019-01-11] MEDS: IPRATROPIUM/ALBUTEROL 0.5-3(2.5)MG/3ML NEB HHN SCH ×4 (01:58→22:18)
[2019-01-11] MEDS ORDERED: HEPARIN SODIUM 1,000 UNIT/1ML VIAL IV SCH (05:30)
[2019-01-11] MEDS: CALCIUM ACETATE 667MG CAPSULE PO SCH ×3 (06:36→17:33)
[2019-01-11] MEDS: GABAPENTIN 300MG CAPSULE PO SCH ×3 (06:36→21:16)
[2019-01-11] MEDS: INSULIN LISPRO 100 UNITS/ML SUBCUT SCH ×4 (06:46→21:19)
[2019-01-11] MEDS: BLOOD SUGAR DIAGNOSTIC STRIP TEST SCH ×4 (06:46→21:17)
[2019-01-11] MEDS: DORZOLAMIDE 2% OPHTH 10 ML BOTTLE LEFTEYE SCH ×2 (08:20→17:35)
[2019-01-11] MEDS: TIMOLOL MALEATE 0.5% OPHTH DROPS 5ML LEFTEYE SCH ×2 (08:20→17:35)
[2019-01-11] MEDS: LETAIRIS 5MG TABLET PO SCH (08:21)
[2019-01-11] MEDS: TRAMADOL 50MG TABLET PO PRN (08:21)
[2019-01-11] MEDS: NYSTATIN POWDER 15GM TOP SCH ×2 (08:22→17:33)
[2019-01-11] MEDS: CARVEDILOL 12.5MG TABLET PO SCH ×2 (09:00→21:16)
[2019-01-11 09:58] LABS: HEMATOCRIT. 22.9 % (36.0-48.0); HEMOGLOBIN. 7.6 g/dL (12.0-16.0); MEAN CORPUSCULAR HEMOGLOBIN 30.5 pg (28.0-32.0); MEAN CORPUSCULAR VOLUME 91.9 fL (81.0-99.0); MEAN PLATELET VOLUME 7.5 fl (7.4-10.4); PLATELET 108 x1000/uL (130-400); RED BLOOD CELL COUNT 2.49 mill/uL (4.2-5.4); RED CELL DISTRIBUTION WIDTH 18.6 % (11.6-14.6)
[2019-01-11 11:26] LABS: PLATELET ESTIMATE DECREASED
[2019-01-11] MEDS: ONDANSETRON HCL 4MG/2ML INJ IV PRN (14:57)
[2019-01-11] MEDS: HYDROMORPHONE HCL/PF 2MG/ML CPJ IV PRN (14:57)
[2019-01-11] MEDS: ATORVASTATIN CALCIUM 10MG TABLET PO SCH (21:17)
[2019-01-11] MEDS: MONTELUKAST SODIUM 10MG TABLET PO SCH (21:17)
[2019-01-12] VITALS: BP 97/49
[2019-01-12] MEDS: IPRATROPIUM/ALBUTEROL 0.5-3(2.5)MG/3ML NEB HHN SCH ×3 (02:45→13:49)
[2019-01-12 04:00] VITALS: BP 97/48
[2019-01-12] MEDS: GABAPENTIN 300MG CAPSULE PO SCH ×3 (05:26→21:23)
[2019-01-12] MEDS: BLOOD SUGAR DIAGNOSTIC STRIP TEST SCH ×4 (06:41→21:22)
[2019-01-12] MEDS: INSULIN LISPRO 100 UNITS/ML SUBCUT SCH ×4 (06:47→21:22)
[2019-01-12 08:00] VITALS: BP 101/54
[2019-01-12] MEDS: TIMOLOL MALEATE 0.5% OPHTH DROPS 5ML LEFTEYE SCH ×2 (08:12→17:05)
[2019-01-12] MEDS: DORZOLAMIDE 2% OPHTH 10 ML BOTTLE LEFTEYE SCH ×2 (08:12→17:05)
[2019-01-12] MEDS: CALCIUM ACETATE 667MG CAPSULE PO SCH ×3 (08:12→17:04)
[2019-01-12] MEDS: LETAIRIS 5MG TABLET PO SCH (08:12)
[2019-01-12] MEDS: NYSTATIN POWDER 15GM TOP SCH ×2 (08:13→17:04)
[2019-01-12] MEDS: CARVEDILOL 12.5MG TABLET PO SCH ×3 (08:26→21:00)
[2019-01-12] MEDS: TRAMADOL 50MG TABLET PO PRN ×2 (08:58→22:26)
[2019-01-12] MEDS: HYDROMORPHONE HCL/PF 2MG/ML CPJ IV PRN (10:32)
[2019-01-12] MEDS: ONDANSETRON HCL 4MG/2ML INJ IV PRN (12:46)
[2019-01-12 16:00] VITALS: BP 107/43
[2019-01-12] MEDS: LEVOFLOXACIN 250MG PREMIX 50 ML IV SCH (17:07)
[2019-01-12] MEDS: DOCUSATE SODIUM 100MG CAPSULE PO PRN (17:42)
[2019-01-12 20:00] VITALS: BP 109/46
[2019-01-12] MEDS: ATORVASTATIN CALCIUM 10MG TABLET PO SCH (21:23)
[2019-01-12] MEDS: MONTELUKAST SODIUM 10MG TABLET PO SCH (21:26)
[2019-01-13] VITALS (8 sets, daily range): BP systolic 105–122; BP diastolic 42–66
[2019-01-13] MEDS: IPRATROPIUM/ALBUTEROL 0.5-3(2.5)MG/3ML NEB HHN SCH ×5 (03:47→21:02)
[2019-01-13] MEDS: DOCUSATE SODIUM 100MG CAPSULE PO PRN (05:28)
[2019-01-13] MEDS: TRAMADOL 50MG TABLET PO PRN ×2 (05:28→09:50)
[2019-01-13] MEDS: GABAPENTIN 300MG CAPSULE PO SCH ×3 (05:29→21:41)
[2019-01-13] MEDS: INSULIN LISPRO 100 UNITS/ML SUBCUT SCH ×4 (06:04→21:43)
[2019-01-13] MEDS: BLOOD SUGAR DIAGNOSTIC STRIP TEST SCH ×4 (06:23→21:40)
[2019-01-13 06:28] LABS: HEMATOCRIT. 21.8 % (36.0-48.0); HEMOGLOBIN. 7.1 g/dL (12.0-16.0); MEAN CORPUSCULAR HEMOGLOBIN 30.1 pg (28.0-32.0); MEAN CORPUSCULAR VOLUME 92.2 fL (81.0-99.0); MEAN PLATELET VOLUME 7.9 fl (7.4-10.4); PLATELET 142 x1000/uL (130-400); RED BLOOD CELL COUNT 2.36 mill/uL (4.2-5.4); RED CELL DISTRIBUTION WIDTH 18.7 % (11.6-14.6)
[2019-01-13] MEDS: CARVEDILOL 12.5MG TABLET PO SCH ×2 (08:33→21:41)
[2019-01-13] MEDS: ONDANSETRON HCL 4MG/2ML INJ IV PRN (09:35)
[2019-01-13] MEDS: NYSTATIN POWDER 15GM TOP SCH ×2 (09:36→18:30)
[2019-01-13] MEDS: TIMOLOL MALEATE 0.5% OPHTH DROPS 5ML LEFTEYE SCH ×2 (09:36→18:31)
[2019-01-13] MEDS: DORZOLAMIDE 2% OPHTH 10 ML BOTTLE LEFTEYE SCH ×2 (09:36→18:30)
[2019-01-13] MEDS: CALCIUM ACETATE 667MG CAPSULE PO SCH ×3 (09:36→18:30)
[2019-01-13] MEDS: LETAIRIS 5MG TABLET PO SCH (09:36)
[2019-01-13 10:39] LABS: PLATELET ESTIMATE NORMAL
[2019-01-13] MEDS ORDERED: MAGNESIUM HYDROXIDE 400MG/5ML 30ML UDC PO PRN (18:15)
[2019-01-13] MEDS ORDERED: NA PHOS,M-B/NA PHOS,DI-BA ENEMA 118ML PR PRN (18:15)
[2019-01-13] MEDS ORDERED: LACTULOSE 20G/30ML UDC PO PRN (18:15)
[2019-01-13] MEDS: ATORVASTATIN CALCIUM 10MG TABLET PO SCH (21:41)
[2019-01-13] MEDS: MONTELUKAST SODIUM 10MG TABLET PO SCH (21:41)
[2019-01-13] MEDS: MICONAZOLE NITRATE 2% OINT 71GM TOP SCH (21:42)
[2019-01-14] VITALS (19 sets, daily range): BP systolic 103–124; BP diastolic 47–59
[2019-01-14] MEDS: IPRATROPIUM/ALBUTEROL 0.5-3(2.5)MG/3ML NEB HHN SCH ×4 (01:44→21:25)
[2019-01-14] MEDS: GABAPENTIN 300MG CAPSULE PO SCH ×3 (06:00→21:48)
[2019-01-14] MEDS: BLOOD SUGAR DIAGNOSTIC STRIP TEST SCH ×4 (06:18→20:31)
[2019-01-14 06:55] LABS: INR 1.1; PARTIAL THROMBOPLASTIN TIME 29.7 sec (23.4-31.0); PROTHROMBIN TIME 10.7 sec (9.1-11.1)
[2019-01-14 07:03] LABS: HEMATOCRIT. 23.5 % (36.0-48.0); HEMOGLOBIN. 7.7 g/dL (12.0-16.0); MEAN CORPUSCULAR HEMOGLOBIN 30.6 pg (28.0-32.0); MEAN PLATELET VOLUME 7.9 fl (7.4-10.4); PLATELET 129 x1000/uL (130-400); RED BLOOD CELL COUNT 2.53 mill/uL (4.2-5.4); RED CELL DISTRIBUTION WIDTH 17.5 % (11.6-14.6)
[2019-01-14] MEDS: INSULIN LISPRO 100 UNITS/ML SUBCUT SCH ×4 (07:40→21:51)
[2019-01-14] MEDS: CALCIUM ACETATE 667MG CAPSULE PO SCH ×3 (07:40→17:36)
[2019-01-14] MEDS ORDERED: FENTANYL CITRATE/PF 50MCG/ML 2ML VIAL ONE (08:38)
[2019-01-14] MEDS ORDERED: LIDOCAINE HCL 1% 20ML VIAL (Pyxis) INJ ONE (08:39)
[2019-01-14] MEDS ORDERED: SODIUM BICARBONATE 4% (2.4MEQ) 5ML VIAL IV ONE (08:39)
[2019-01-14] MEDS: CARVEDILOL 12.5MG TABLET PO SCH ×2 (09:00→21:49)
[2019-01-14] MEDS ORDERED: FENTANYL CITRATE/PF 50MCG/ML 2ML VIAL IV SCH (09:30)
[2019-01-14] MEDS: DOCUSATE SODIUM 250MG CAPSULE PO SCH ×2 (10:34→17:36)
[2019-01-14] MEDS: ACETAMINOPHEN 325MG TABLET PO PRN ×2 (10:34→21:53)
[2019-01-14] MEDS: DORZOLAMIDE 2% OPHTH 10 ML BOTTLE LEFTEYE SCH ×2 (10:34→17:36)
[2019-01-14] MEDS: MICONAZOLE NITRATE 2% OINT 71GM TOP SCH ×2 (10:35→21:50)
[2019-01-14] MEDS: TIMOLOL MALEATE 0.5% OPHTH DROPS 5ML LEFTEYE SCH ×2 (10:35→17:36)
[2019-01-14] MEDS: LETAIRIS 5MG TABLET PO SCH (10:35)
[2019-01-14] MEDS: NYSTATIN POWDER 15GM TOP SCH ×2 (10:35→17:36)
[2019-01-14 12:11] LABS: PLATELET ESTIMATE NORMAL
[2019-01-14] MEDS: EPOETIN ALFA 10000UNITS/ML VIAL SUBCUT SCH (21:49)
[2019-01-14] MEDS: ATORVASTATIN CALCIUM 10MG TABLET PO SCH (21:49)
[2019-01-14] MEDS: MONTELUKAST SODIUM 10MG TABLET PO SCH (21:49)
[2019-01-15] VITALS: BP 122/50
[2019-01-15] MEDS: IPRATROPIUM/ALBUTEROL 0.5-3(2.5)MG/3ML NEB HHN SCH ×4 (01:04→20:38)
[2019-01-15 04:00] VITALS: BP 115/66
[2019-01-15] MEDS: BLOOD SUGAR DIAGNOSTIC STRIP TEST SCH ×4 (05:50→20:53)
[2019-01-15] MEDS: GABAPENTIN 300MG CAPSULE PO SCH ×3 (06:25→22:03)
[2019-01-15] MEDS: INSULIN LISPRO 100 UNITS/ML SUBCUT SCH ×4 (06:26→22:08)
[2019-01-15 07:57] LABS: HEMATOCRIT. 24.8 % (36.0-48.0); HEMOGLOBIN. 8.2 g/dL (12.0-16.0); MEAN CORPUSCULAR HEMOGLOBIN 30.5 pg (28.0-32.0); MEAN CORPUSCULAR VOLUME 92.5 fL (81.0-99.0); MEAN PLATELET VOLUME 8.2 fl (7.4-10.4); PLATELET 130 x1000/uL (130-400); RED BLOOD CELL COUNT 2.68 mill/uL (4.2-5.4); RED CELL DISTRIBUTION WIDTH 17.2 % (11.6-14.6)
[2019-01-15 08:00] VITALS: BP 121/61
[2019-01-15] MEDS: CALCIUM ACETATE 667MG CAPSULE PO SCH ×3 (08:33→17:37)
[2019-01-15] MEDS: DOCUSATE SODIUM 250MG CAPSULE PO SCH ×2 (08:33→17:00)
[2019-01-15] MEDS: MICONAZOLE NITRATE 2% OINT 71GM TOP SCH ×2 (08:34→22:09)
[2019-01-15] MEDS: CARVEDILOL 12.5MG TABLET PO SCH ×2 (08:34→22:07)
[2019-01-15] MEDS: LETAIRIS 5MG TABLET PO SCH (08:34)
[2019-01-15] MEDS: NYSTATIN POWDER 15GM TOP SCH ×2 (08:34→17:37)
[2019-01-15] MEDS: TIMOLOL MALEATE 0.5% OPHTH DROPS 5ML LEFTEYE SCH ×2 (08:35→17:35)
[2019-01-15] MEDS: DORZOLAMIDE 2% OPHTH 10 ML BOTTLE LEFTEYE SCH ×2 (08:35→17:35)
[2019-01-15 12:00] VITALS: BP 118/55
[2019-01-15 12:25] LABS: PLATELET ESTIMATE NORMAL
[2019-01-15 16:00] VITALS: BP 121/52
[2019-01-15 20:00] VITALS: BP 127/58
[2019-01-15] MEDS ORDERED: VANCOMYCIN 1 G PREMIX 200 ML IV SCH (21:30)
[2019-01-15] MEDS: ATORVASTATIN CALCIUM 10MG TABLET PO SCH (22:03)
[2019-01-15] MEDS: MONTELUKAST SODIUM 10MG TABLET PO SCH (22:03)
[2019-01-16] VITALS (7 sets, daily range): BP systolic 125–142; BP diastolic 57–98
[2019-01-16] MEDS: ACETAMINOPHEN 325MG TABLET PO PRN ×3 (00:18→21:18)
[2019-01-16] MEDS: IPRATROPIUM/ALBUTEROL 0.5-3(2.5)MG/3ML NEB HHN SCH ×4 (00:58→21:56)
[2019-01-16] MEDS: GABAPENTIN 300MG CAPSULE PO SCH ×3 (05:58→21:18)
[2019-01-16] MEDS: BLOOD SUGAR DIAGNOSTIC STRIP TEST SCH ×4 (05:58→21:00)
[2019-01-16] MEDS: INSULIN LISPRO 100 UNITS/ML SUBCUT SCH ×4 (06:00→21:23)
[2019-01-16] MEDS: CALCIUM ACETATE 667MG CAPSULE PO SCH ×3 (07:40→17:59)
[2019-01-16] MEDS: DOCUSATE SODIUM 250MG CAPSULE PO SCH ×2 (08:51→18:07)
[2019-01-16] MEDS: CARVEDILOL 12.5MG TABLET PO SCH ×2 (08:51→21:18)
[2019-01-16] MEDS: LETAIRIS 5MG TABLET PO SCH (08:51)
[2019-01-16] MEDS: TIMOLOL MALEATE 0.5% OPHTH DROPS 5ML LEFTEYE SCH ×2 (09:04→17:59)
[2019-01-16] MEDS: DORZOLAMIDE 2% OPHTH 10 ML BOTTLE LEFTEYE SCH ×2 (09:04→17:59)
[2019-01-16] MEDS: MICONAZOLE NITRATE 2% OINT 71GM TOP SCH ×2 (09:06→21:25)
[2019-01-16] MEDS: NYSTATIN POWDER 15GM TOP SCH ×3 (09:06→21:25)
[2019-01-16] MEDS ORDERED: VANCOMYCIN 1 G PREMIX 200 ML IV SCH (12:00)
[2019-01-16] MEDS: ATORVASTATIN CALCIUM 10MG TABLET PO SCH (21:18)
[2019-01-16] MEDS: EPOETIN ALFA 10000UNITS/ML VIAL SUBCUT SCH (21:19)
[2019-01-16] MEDS: MONTELUKAST SODIUM 10MG TABLET PO SCH (21:19)
[2019-01-17] VITALS (27 sets, daily range): BP systolic 106–153; BP diastolic 24–113
[2019-01-17] MEDS: IPRATROPIUM/ALBUTEROL 0.5-3(2.5)MG/3ML NEB HHN SCH ×3 (02:26→14:30)
[2019-01-17] MEDS: ACETAMINOPHEN 325MG TABLET PO PRN (02:49)
[2019-01-17] MEDS: BLOOD SUGAR DIAGNOSTIC STRIP TEST SCH ×4 (05:39→21:28)
[2019-01-17] MEDS: GABAPENTIN 300MG CAPSULE PO SCH ×3 (06:01→21:08)
[2019-01-17] MEDS: INSULIN LISPRO 100 UNITS/ML SUBCUT SCH ×4 (06:05→21:31)
[2019-01-17 06:16] LABS: HEMATOCRIT. 26.5 % (36.0-48.0); HEMOGLOBIN. 8.7 g/dL (12.0-16.0); MEAN CORPUSCULAR HEMOGLOBIN 30.3 pg (28.0-32.0); MEAN CORPUSCULAR VOLUME 92.7 fL (81.0-99.0); MEAN PLATELET VOLUME 8.4 fl (7.4-10.4); PLATELET 160 x1000/uL (130-400); RED BLOOD CELL COUNT 2.86 mill/uL (4.2-5.4); RED CELL DISTRIBUTION WIDTH 17.1 % (11.6-14.6)
[2019-01-17] MEDS: CALCIUM ACETATE 667MG CAPSULE PO SCH ×4 (07:40→17:58)
[2019-01-17] MEDS: CARVEDILOL 12.5MG TABLET PO SCH ×3 (09:00→20:37)
[2019-01-17] MEDS: DOCUSATE SODIUM 250MG CAPSULE PO SCH ×3 (09:00→17:00)
[2019-01-17] MEDS: LETAIRIS 5MG TABLET PO SCH ×2 (09:00→09:26)
[2019-01-17] MEDS: DOCUSATE SODIUM 100MG CAPSULE PO PRN (09:25)
[2019-01-17] MEDS: DORZOLAMIDE 2% OPHTH 10 ML BOTTLE LEFTEYE SCH ×2 (09:26→20:36)
[2019-01-17] MEDS: TIMOLOL MALEATE 0.5% OPHTH DROPS 5ML LEFTEYE SCH ×2 (09:26→20:36)
[2019-01-17] MEDS: MICONAZOLE NITRATE 2% OINT 71GM TOP SCH ×2 (09:29→21:31)
[2019-01-17] MEDS ORDERED: LIDOCAINE HCL/PF 1% 2ML VIAL ONE (10:14)
[2019-01-17 10:50] LABS: BG BASE EXCESS 0.5 mmol/L (-2.0-2.0); BG CARBOXYHEMOGLOBIN 0.5 % (0.5-1.5); BG DEOXYHEMOGLOBIN 8.7 % (0.0-5.0); BG HCO3 ACT 24.2 mmol/L (22.0-26.0); BG METHEMOGLOBIN 0.1 % (0.0-1.5); BG OXYGEN SATURATION 91.2 % (92.0-98.5); BG OXYHEMOGLOBIN 90.7 % (94.0-97.0); BG PCO2 35.2 mmHg (35.0-45.0); BG PH 7.455 (7.350-7.450); BG PO2 61.1 mmHg (75.0-100.0); BG SAMPLE SITE RIGHT RADIAL; BG TOTAL HEMOGLOBIN 9.5 g/dL (12.0-18.0); BG VENT MODE NASAL CANNULA
[2019-01-17 12:28] LABS: HEMATOCRIT. 29.5 % (36.0-48.0); HEMOGLOBIN. 9.5 g/dL (12.0-16.0); MEAN CORPUSCULAR HEMOGLOBIN 30.2 pg (28.0-32.0); MEAN CORPUSCULAR VOLUME 93.3 fL (81.0-99.0); MEAN PLATELET VOLUME 8.6 fl (7.4-10.4); PLATELET 145 x1000/uL (130-400); RED BLOOD CELL COUNT 3.16 mill/uL (4.2-5.4); RED CELL DISTRIBUTION WIDTH 17.5 % (11.6-14.6)
[2019-01-17 12:36] LABS: CHLORIDE 102 mEq/L (98-107)
[2019-01-17 13:58] LABS: PLATELET ESTIMATE NORMAL
[2019-01-17 14:07] LABS: ATYPICAL LYMPHOCYTES 1; PLATELET ESTIMATE NORMAL
[2019-01-17] MEDS ORDERED: CEFEPIME 1,000 MG in DEXTROSE 5% WATER 50 ML IV SCH (17:00)
[2019-01-17] MEDS: NYSTATIN POWDER 15GM TOP SCH (17:00)
[2019-01-17 17:09] LABS: HEMOGLOBIN. 8.9 g/dL (12.0-16.0); MEAN CORPUSCULAR HEMOGLOBIN 30.6 pg (28.0-32.0); MEAN CORPUSCULAR VOLUME 92.3 fL (81.0-99.0); MEAN PLATELET VOLUME 8.8 fl (7.4-10.4); PLATELET 145 x1000/uL (130-400); RED BLOOD CELL COUNT 2.93 mill/uL (4.2-5.4); RED CELL DISTRIBUTION WIDTH 16.9 % (11.6-14.6)
[2019-01-17 17:42] LABS: PLATELET ESTIMATE NORMAL
[2019-01-17] MEDS: ASPIRIN 300MG SUPP PR SCH (17:54)
[2019-01-17 18:24] LABS: BG BASE EXCESS 0.6 mmol/L (-2.0-2.0); BG BILEVEL POS AIRWAY PRESSURE 15/5; BG DEOXYHEMOGLOBIN 2.7 % (0.0-5.0); BG HCO3 ACT 24.3 mmol/L (22.0-26.0); BG OXYGEN SATURATION 97.3 % (92.0-98.5); BG OXYHEMOGLOBIN 97.3 % (94.0-97.0); BG PCO2 34.8 mmHg (35.0-45.0); BG PH 7.461 (7.350-7.450); BG PO2 102.3 mmHg (75.0-100.0); BG SAMPLE SITE RIGHT RADIAL; BG TOTAL HEMOGLOBIN 9.5 g/dL (12.0-18.0); BG VENT MODE MASK - BIPAP; BG VENT RATE 16 set
[2019-01-17] MEDS: CEFEPIME 1,000 MG in DEXTROSE 5% WATER 50 ML IV SCH (19:43)
[2019-01-17] MEDS ORDERED: ACETAMINOPHEN 650MG SUPP PR PRN (20:00)
[2019-01-17] MEDS ORDERED: NOREPINEPHRINE 16 MG in DEXT 5% WATER 250 ML IV PRN (20:16)
[2019-01-17] MEDS: MONTELUKAST SODIUM 10MG TABLET PO SCH (20:37)
[2019-01-17] MEDS: ATORVASTATIN CALCIUM 10MG TABLET PO SCH (20:37)
[2019-01-17] MEDS ORDERED: IPRATROPIUM BROMIDE (0.02%) 0.5MG/2.5ML NEB ONE (21:15)
[2019-01-17] MEDS ORDERED: BUDESONIDE 0.5MG/2ML NEB ONE (21:15)
[2019-01-17] MEDS ORDERED: IPRATROPIUM/ALBUTEROL 0.5-3(2.5)MG/3ML NEB HHN PRN (21:30)
[2019-01-18] VITALS (93 sets, daily range): BP systolic 92–157; BP diastolic 31–97
[2019-01-18] MEDS: IPRATROPIUM/ALBUTEROL 0.5-3(2.5)MG/3ML NEB HHN SCH ×4 (02:01→20:55)
[2019-01-18] MEDS: GABAPENTIN 300MG CAPSULE PO SCH ×3 (05:44→21:12)
[2019-01-18 05:49] LABS: HEMATOCRIT. 29.8 % (36.0-48.0); HEMOGLOBIN. 9.5 g/dL (12.0-16.0); MEAN CORPUSCULAR HEMOGLOBIN 30.2 pg (28.0-32.0); MEAN CORPUSCULAR VOLUME 94.5 fL (81.0-99.0); MEAN PLATELET VOLUME 9.3 fl (7.4-10.4); PLATELET 143 x1000/uL (130-400); RED BLOOD CELL COUNT 3.15 mill/uL (4.2-5.4); RED CELL DISTRIBUTION WIDTH 17.3 % (11.6-14.6)
[2019-01-18] MEDS: CALCIUM ACETATE 667MG CAPSULE PO SCH ×3 (06:02→17:28)
[2019-01-18] MEDS: BLOOD SUGAR DIAGNOSTIC STRIP TEST SCH ×4 (06:10→23:00)
[2019-01-18] MEDS: INSULIN LISPRO 100 UNITS/ML SUBCUT SCH ×4 (06:12→23:02)
[2019-01-18 07:45] LABS: PLATELET ESTIMATE NORMAL
[2019-01-18 08:11] LABS: BG BASE EXCESS -0.1 mmol/L (-2.0-2.0); BG BILEVEL POS AIRWAY PRESSURE 15/5; BG CARBOXYHEMOGLOBIN 0.6 % (0.5-1.5); BG DEOXYHEMOGLOBIN 2.2 % (0.0-5.0); BG FRACTION INSPIRED OXYGEN 40; BG HCO3 ACT 23.9 mmol/L (22.0-26.0); BG METHEMOGLOBIN 0.3 % (0.0-1.5); BG OXYGEN SATURATION 97.8 % (92.0-98.5); BG OXYHEMOGLOBIN 96.9 % (94.0-97.0); BG PCO2 36.8 mmHg (35.0-45.0); BG PH 7.431 (7.350-7.450); BG PO2 106.5 mmHg (75.0-100.0); BG SAMPLE SITE RIGHT RADIAL; BG VENT MODE MASK - BIPAP
[2019-01-18] MEDS: CARVEDILOL 12.5MG TABLET PO SCH (09:00)
[2019-01-18] MEDS: LETAIRIS 5MG TABLET PO SCH (09:00)
[2019-01-18] MEDS: DOCUSATE SODIUM 250MG CAPSULE PO SCH ×2 (09:50→17:28)
[2019-01-18] MEDS: ASPIRIN 300MG SUPP PR SCH (09:51)
[2019-01-18] MEDS: TIMOLOL MALEATE 0.5% OPHTH DROPS 5ML LEFTEYE SCH ×2 (09:52→17:29)
[2019-01-18] MEDS: DORZOLAMIDE 2% OPHTH 10 ML BOTTLE LEFTEYE SCH ×2 (09:52→17:29)
[2019-01-18] MEDS: NYSTATIN POWDER 15GM TOP SCH ×2 (09:53→17:22)
[2019-01-18] MEDS: MICONAZOLE NITRATE 2% OINT 71GM TOP SCH ×2 (09:54→21:13)
[2019-01-18] MEDS: ACETAMINOPHEN 325MG TABLET PO PRN ×2 (11:01→21:12)
[2019-01-18 12:35] LABS: T4 FREE 1.08 ng/dL (0.76-1.46)
[2019-01-18 15:31] LABS: FOLIC ACID (FOLATE) SERUM 19.3 ng/mL (>5.38)
[2019-01-18] MEDS: AMIODARONE HCL 200 MG TABLET PO SCH ×2 (17:28→21:10)
[2019-01-18] MEDS ORDERED: IOHEXOL-350 100 ML BOTTLE ONE (18:26)
[2019-01-18] MEDS: CARVEDILOL 6.25 MG TABLET PO SCH (21:00)
[2019-01-18] MEDS: ATORVASTATIN CALCIUM 10MG TABLET PO SCH (21:10)
[2019-01-18] MEDS: CEFEPIME 1,000 MG in DEXTROSE 5% WATER 50 ML IV SCH (21:10)
[2019-01-18] MEDS: EPOETIN ALFA 10000UNITS/ML VIAL SUBCUT SCH (21:10)
[2019-01-18] MEDS: MONTELUKAST SODIUM 10MG TABLET PO SCH (21:10)
[2019-01-18] MEDS: ENOXAPARIN 120MG/0.8ML SYR SUBCUT SCH (22:38)
[2019-01-18] MEDS: NOREPINEPHRINE 16 MG in DEXTROSE 5% WATER 250 ML IV PRN (22:39)
[2019-01-19] VITALS (91 sets, daily range): BP systolic 70–173; BP diastolic 46–130
[2019-01-19] MEDS: IPRATROPIUM/ALBUTEROL 0.5-3(2.5)MG/3ML NEB HHN SCH ×4 (01:03→21:11)
[2019-01-19 05:59] LABS: BASOPHILS % 0.3 % (0.0-2.0); EOSINOPHILS % 0.1 % (0.0-5.0); HEMATOCRIT. 30.6 % (36.0-48.0); HEMOGLOBIN. 9.7 g/dL (12.0-16.0); LYMPHOCYTES % 9.1 % (20.0-50.0); MEAN CORPUSCULAR HEMOGLOBIN 30.2 pg (28.0-32.0); MEAN CORPUSCULAR VOLUME 94.9 fL (81.0-99.0); MEAN PLATELET VOLUME 10.4 fl (7.4-10.4); MONOCYTES % 10.2 % (2.0-8.0); NEUTROPHILS % 80.3 % (40.0-76.0); PLATELET 157 x1000/uL (130-400); RED BLOOD CELL COUNT 3.23 mill/uL (4.2-5.4); RED CELL DISTRIBUTION WIDTH 17.6 % (11.6-14.6)
[2019-01-19] MEDS: BLOOD SUGAR DIAGNOSTIC STRIP TEST SCH ×3 (06:09→18:05)
[2019-01-19] MEDS: GABAPENTIN 300MG CAPSULE PO SCH ×3 (06:30→22:58)
[2019-01-19] MEDS: ACETAMINOPHEN 325MG TABLET PO PRN ×2 (06:30→17:46)
[2019-01-19] MEDS: CALCIUM ACETATE 667MG CAPSULE PO SCH ×3 (06:30→17:46)
[2019-01-19] MEDS: INSULIN LISPRO 100 UNITS/ML SUBCUT SCH ×3 (06:31→18:09)
[2019-01-19] MEDS: DORZOLAMIDE 2% OPHTH 10 ML BOTTLE LEFTEYE SCH ×2 (09:00→17:48)
[2019-01-19] MEDS: TIMOLOL MALEATE 0.5% OPHTH DROPS 5ML LEFTEYE SCH ×2 (09:00→17:48)
[2019-01-19] MEDS: ASPIRIN 300MG SUPP PR SCH (09:00)
[2019-01-19] MEDS: LETAIRIS 5MG TABLET PO SCH (09:00)
[2019-01-19] MEDS: AMIODARONE HCL 200 MG TABLET PO SCH ×2 (09:00→21:52)
[2019-01-19] MEDS: MICONAZOLE NITRATE 2% OINT 71GM TOP SCH ×2 (09:00→22:01)
[2019-01-19] MEDS: NYSTATIN POWDER 15GM TOP SCH ×2 (09:00→18:01)
[2019-01-19] MEDS: DOCUSATE SODIUM 250MG CAPSULE PO SCH ×2 (09:00→17:46)
[2019-01-19 13:04] LABS: BG BASE EXCESS 0.7 mmol/L (-2.0-2.0); BG CARBOXYHEMOGLOBIN 0.5 % (0.5-1.5); BG DEOXYHEMOGLOBIN 4.9 % (0.0-5.0); BG HCO3 ACT 24.5 mmol/L (22.0-26.0); BG METHEMOGLOBIN 0.3 % (0.0-1.5); BG OXYGEN SATURATION 95.1 % (92.0-98.5); BG OXYHEMOGLOBIN 94.3 % (94.0-97.0); BG PCO2 36.1 mmHg (35.0-45.0); BG PH 7.449 (7.350-7.450); BG PO2 75.8 mmHg (75.0-100.0); BG SAMPLE SITE RIGHT RADIAL; BG TOTAL HEMOGLOBIN 10.8 g/dL (12.0-18.0); BG VENT MODE NASAL CANNULA
[2019-01-19] MEDS ORDERED: GELATIN SPONGE,ABSORBABLE 12-7MM SPONGE ONE (15:42)
[2019-01-19] MEDS: MEROPENEM 500 MG in SODIUM CHLORIDE 0.9% 50 ML IV SCH (16:08)
[2019-01-19 17:23] LABS: BASOPHILS % 0.2 % (0.0-2.0); HEMATOCRIT. 25.5 % (36.0-48.0); HEMOGLOBIN. 8.1 g/dL (12.0-16.0); LYMPHOCYTES % 7.4 % (20.0-50.0); MEAN CORPUSCULAR HEMOGLOBIN 30.1 pg (28.0-32.0); MEAN CORPUSCULAR VOLUME 94.6 fL (81.0-99.0); MEAN PLATELET VOLUME 9.5 fl (7.4-10.4); MONOCYTES % 7.4 % (2.0-8.0); PLATELET 192 x1000/uL (130-400); RED BLOOD CELL COUNT 2.69 mill/uL (4.2-5.4); RED CELL DISTRIBUTION WIDTH 17.7 % (11.6-14.6)
[2019-01-19] MEDS: CARVEDILOL 6.25 MG TABLET PO SCH ×2 (21:52→21:54)
[2019-01-19] MEDS: ATORVASTATIN CALCIUM 10MG TABLET PO SCH (21:52)
[2019-01-19] MEDS: MONTELUKAST SODIUM 10MG TABLET PO SCH (21:52)
[2019-01-19] MEDS: ENOXAPARIN 120MG/0.8ML SYR SUBCUT SCH (22:00)
[2019-01-20] VITALS (63 sets, daily range): BP systolic 64–156; BP diastolic 30–88
[2019-01-20] MEDS: BLOOD SUGAR DIAGNOSTIC STRIP TEST SCH ×4 (00:37→18:33)
[2019-01-20] MEDS: INSULIN LISPRO 100 UNITS/ML SUBCUT SCH ×4 (01:02→18:35)
[2019-01-20] MEDS: IPRATROPIUM/ALBUTEROL 0.5-3(2.5)MG/3ML NEB HHN SCH ×2 (04:46→20:38)
[2019-01-20 05:54] LABS: BASOPHILS % 0.7 % (0.0-2.0); EOSINOPHILS % 2.3 % (0.0-5.0); HEMATOCRIT. 22.5 % (36.0-48.0); HEMOGLOBIN. 7.3 g/dL (12.0-16.0); MEAN CORPUSCULAR HEMOGLOBIN 30.4 pg (28.0-32.0); MONOCYTES % 9.3 % (2.0-8.0); NEUTROPHILS % 79.7 % (40.0-76.0); PLATELET 223 x1000/uL (130-400); RED CELL DISTRIBUTION WIDTH 17.7 % (11.6-14.6)
[2019-01-20] MEDS: GABAPENTIN 300MG CAPSULE PO SCH ×3 (06:23→21:42)
[2019-01-20] MEDS: CALCIUM ACETATE 667MG CAPSULE PO SCH ×3 (06:23→18:32)
[2019-01-20] MEDS: MEROPENEM 500 MG in SODIUM CHLORIDE 0.9% 50 ML IV SCH (08:53)
[2019-01-20] MEDS: DOCUSATE SODIUM 250MG CAPSULE PO SCH ×2 (08:54→08:55)
[2019-01-20] MEDS: DORZOLAMIDE 2% OPHTH 10 ML BOTTLE LEFTEYE SCH ×2 (08:54→18:33)
[2019-01-20] MEDS: TIMOLOL MALEATE 0.5% OPHTH DROPS 5ML LEFTEYE SCH ×2 (08:54→18:33)
[2019-01-20] MEDS: CARVEDILOL 6.25 MG TABLET PO SCH ×2 (08:57→21:00)
[2019-01-20] MEDS: AMIODARONE HCL 200 MG TABLET PO SCH ×2 (08:58→21:32)
[2019-01-20] MEDS ORDERED: ASPIRIN 325MG TABLET NG SCH (09:00)
[2019-01-20] MEDS: NYSTATIN POWDER 15GM TOP SCH ×2 (09:01→17:48)
[2019-01-20] MEDS: LETAIRIS 5MG TABLET PO SCH (09:01)
[2019-01-20] MEDS: MICONAZOLE NITRATE 2% OINT 71GM TOP SCH ×2 (09:01→21:57)
[2019-01-20 09:04] LABS: D-DIMER 19.75 mg/L FEU (<0.50); INR 1.2; PARTIAL THROMBOPLASTIN TIME 35.1 sec (23.4-31.0); PROTHROMBIN TIME 11.9 sec (9.1-11.1)
[2019-01-20] MEDS: ACETAMINOPHEN 325MG TABLET PO PRN ×2 (09:09→21:32)
[2019-01-20] MEDS: MIDODRINE HCL 5MG TABLET PO SCH ×3 (09:12→18:32)
[2019-01-20] MEDS: DOCUSATE SODIUM SUGAR FREE 100MG/10ML UDC NG SCH ×2 (09:12→17:00)
[2019-01-20 10:46] LABS: BG BASE EXCESS 0.4 mmol/L (-2.0-2.0); BG CARBOXYHEMOGLOBIN 0.3 % (0.5-1.5); BG DEOXYHEMOGLOBIN 5.2 % (0.0-5.0); BG FRACTION INSPIRED OXYGEN 32; BG HCO3 ACT 24.7 mmol/L (22.0-26.0); BG OXYGEN SATURATION 94.7 % (92.0-98.5); BG OXYHEMOGLOBIN 93.5 % (94.0-97.0); BG PCO2 38.1 mmHg (35.0-45.0); BG PO2 80.1 mmHg (75.0-100.0); BG SAMPLE SITE RIGHT RADIAL; BG TOTAL HEMOGLOBIN 7.5 g/dL (12.0-18.0); BG VENT MODE NASAL CANNULA
[2019-01-20] MEDS: INSULIN GLARGINE UD 100 UNITS/ML SYR SUBCUT SCH (13:42)
[2019-01-20] MEDS ORDERED: VANCOMYCIN 1 G PREMIX 200 ML IV NR (18:00)
[2019-01-20] MEDS: DOCUSATE SODIUM 100MG CAPSULE PO PRN (18:32)
[2019-01-20 18:41] LABS: HEMOGLOBIN 6.4 g/dL (12.0-16.0)
[2019-01-20] MEDS: ATORVASTATIN CALCIUM 10MG TABLET PO SCH (21:32)
[2019-01-20] MEDS: MONTELUKAST SODIUM 10MG TABLET PO SCH (21:32)
[2019-01-20] MEDS: EPOETIN ALFA 10000UNITS/ML VIAL SUBCUT SCH (21:35)
[2019-01-20] MEDS: ENOXAPARIN 120MG/0.8ML SYR SUBCUT SCH (22:42)
[2019-01-21] VITALS (62 sets, daily range): BP systolic 85–137; BP diastolic 36–88
[2019-01-21] MEDS: BLOOD SUGAR DIAGNOSTIC STRIP TEST SCH ×5 (00:11→21:46)
[2019-01-21] MEDS: INSULIN LISPRO 100 UNITS/ML SUBCUT SCH ×4 (00:27→21:51)
[2019-01-21] MEDS: IPRATROPIUM/ALBUTEROL 0.5-3(2.5)MG/3ML NEB HHN SCH ×4 (01:31→20:28)
[2019-01-21] MEDS: GABAPENTIN 300MG CAPSULE PO SCH ×3 (05:02→21:45)
[2019-01-21] MEDS: ACETAMINOPHEN 325MG TABLET PO PRN (06:26)
[2019-01-21 06:34] LABS: BASOPHILS % 0.9 % (0.0-2.0); EOSINOPHILS % 0.3 % (0.0-5.0); HEMATOCRIT. 27.2 % (36.0-48.0); LYMPHOCYTES % 16.1 % (20.0-50.0); MEAN CORPUSCULAR VOLUME 90.9 fL (81.0-99.0); MEAN PLATELET VOLUME 10.2 fl (7.4-10.4); NEUTROPHILS % 70.7 % (40.0-76.0); PLATELET 190 x1000/uL (130-400); RED BLOOD CELL COUNT 2.99 mill/uL (4.2-5.4); RED CELL DISTRIBUTION WIDTH 16.9 % (11.6-14.6)
[2019-01-21 06:38] LABS: PHOSPHORUS 5.9 mg/dL (2.5-4.9)
[2019-01-21 06:42] LABS: INR 1.1; PROTHROMBIN TIME 11.4 sec (9.1-11.1)
[2019-01-21] MEDS: CALCIUM ACETATE 667MG CAPSULE PO SCH ×3 (07:00→17:00)
[2019-01-21] MEDS: NYSTATIN POWDER 15GM TOP SCH (09:00)
[2019-01-21] MEDS: AMIODARONE HCL 200 MG TABLET PO SCH ×2 (09:00→21:45)
[2019-01-21] MEDS: MICONAZOLE NITRATE 2% OINT 71GM TOP SCH ×2 (09:00→21:53)
[2019-01-21] MEDS: MIDODRINE HCL 5MG TABLET PO SCH ×3 (09:00→17:00)
[2019-01-21] MEDS: DOCUSATE SODIUM SUGAR FREE 100MG/10ML UDC NG SCH ×2 (09:00→17:00)
[2019-01-21] MEDS: CARVEDILOL 6.25 MG TABLET PO SCH ×2 (09:00→18:13)
[2019-01-21] MEDS: LETAIRIS 5MG TABLET PO SCH (09:00)
[2019-01-21] MEDS: MEROPENEM 500 MG in SODIUM CHLORIDE 0.9% 50 ML IV SCH (09:29)
[2019-01-21] MEDS: TIMOLOL MALEATE 0.5% OPHTH DROPS 5ML LEFTEYE SCH ×2 (09:29→18:14)
[2019-01-21] MEDS ORDERED: HEPARIN SODIUM 1,000 UNIT/1ML VIAL IV NR (09:30)
[2019-01-21] MEDS: DORZOLAMIDE 2% OPHTH 10 ML BOTTLE LEFTEYE SCH ×2 (09:30→18:14)
[2019-01-21] MEDS: INSULIN GLARGINE UD 100 UNITS/ML SYR SUBCUT SCH (09:39)
[2019-01-21 13:06] LABS: ANTI-CARDIOLIPIN AB IGA < 9 APL U/mL (0-11); ANTI-CARDIOLIPIN AB IGG < 9 GPL U/mL (0-14); ANTI-CARDIOLIPIN AB IGM < 9 MPL U/mL (0-12)
[2019-01-21 13:12] LABS: BG BASE EXCESS 0.2 mmol/L (-2.0-2.0); BG CARBOXYHEMOGLOBIN 0.1 % (0.5-1.5); BG DEOXYHEMOGLOBIN 3.4 % (0.0-5.0); BG FRACTION INSPIRED OXYGEN 32; BG HCO3 ACT 24.1 mmol/L (22.0-26.0); BG METHEMOGLOBIN 0.1 % (0.0-1.5); BG OXYGEN SATURATION 96.6 % (92.0-98.5); BG OXYHEMOGLOBIN 96.4 % (94.0-97.0); BG PCO2 36.1 mmHg (35.0-45.0); BG PH 7.443 (7.350-7.450); BG PO2 91.2 mmHg (75.0-100.0); BG SAMPLE SITE RIGHT RADIAL; BG TOTAL HEMOGLOBIN 9.6 g/dL (12.0-18.0); BG VENT MODE NASAL CANNULA
[2019-01-21] MEDS ORDERED: MIDAZOLAM HCL 5 MG/5 ML VIAL ONE (14:41)
[2019-01-21] MEDS ORDERED: FENTANYL CITRATE/PF 50MCG/ML 2ML VIAL ONE (14:42)
[2019-01-21] MEDS ORDERED: MIDAZOLAM HCL 5 MG/5 ML VIAL IV PRN (15:04)
[2019-01-21] MEDS ORDERED: SIMETHICONE 40 MG/0.6 ML 30ML ONE (15:10)
[2019-01-21] MEDS ORDERED: BACTERIOSTATIC SODIUM CHLORIDE 0.9% 30ML VIAL IJ ONE (15:10)
[2019-01-21] MEDS ORDERED: OMEPRAZOLE 20MG CAPSULE EXTENDED RELEASE PO NR (16:00)
[2019-01-21] MEDS: ATORVASTATIN CALCIUM 10MG TABLET PO SCH (21:44)
[2019-01-21] MEDS: MONTELUKAST SODIUM 10MG TABLET PO SCH (21:45)
[2019-01-21] MEDS: ENOXAPARIN 120MG/0.8ML SYR SUBCUT SCH (21:45)
[2019-01-22] VITALS (92 sets, daily range): BP systolic 88–157; BP diastolic 45–77
[2019-01-22] MEDS: ACETAMINOPHEN 325MG TABLET PO PRN ×3 (00:53→21:47)
[2019-01-22] MEDS: IPRATROPIUM/ALBUTEROL 0.5-3(2.5)MG/3ML NEB HHN SCH ×3 (01:37→20:36)
[2019-01-22 05:53] LABS: BASOPHILS % 0.5 % (0.0-2.0); EOSINOPHILS % 0.5 % (0.0-5.0); HEMATOCRIT. 26.5 % (36.0-48.0); LYMPHOCYTES % 11.8 % (20.0-50.0); MEAN CORPUSCULAR HEMOGLOBIN 30.7 pg (28.0-32.0); MEAN CORPUSCULAR VOLUME 90.9 fL (81.0-99.0); MEAN PLATELET VOLUME 9.2 fl (7.4-10.4); MONOCYTES % 11.2 % (2.0-8.0); PLATELET 206 x1000/uL (130-400); RED BLOOD CELL COUNT 2.92 mill/uL (4.2-5.4); RED CELL DISTRIBUTION WIDTH 17.1 % (11.6-14.6)
[2019-01-22] MEDS: CALCIUM ACETATE 667MG CAPSULE PO SCH ×3 (07:04→17:43)
[2019-01-22] MEDS: GABAPENTIN 300MG CAPSULE PO SCH ×3 (07:04→21:46)
[2019-01-22] MEDS: OMEPRAZOLE 20MG CAPSULE EXTENDED RELEASE PO SCH (07:05)
[2019-01-22] MEDS: INSULIN LISPRO 100 UNITS/ML SUBCUT SCH ×4 (07:06→21:50)
[2019-01-22] MEDS: BLOOD SUGAR DIAGNOSTIC STRIP TEST SCH ×4 (07:07→21:00)
[2019-01-22] MEDS: CARVEDILOL 6.25 MG TABLET PO SCH ×2 (09:00→21:00)
[2019-01-22] MEDS: AMIODARONE HCL 200 MG TABLET PO SCH ×2 (09:12→21:46)
[2019-01-22] MEDS: DOCUSATE SODIUM 100MG CAPSULE PO PRN (09:13)
[2019-01-22] MEDS: MIDODRINE HCL 5MG TABLET PO SCH ×3 (09:13→17:43)
[2019-01-22] MEDS: MEROPENEM 500 MG in SODIUM CHLORIDE 0.9% 50 ML IV SCH (09:14)
[2019-01-22] MEDS: LETAIRIS 5MG TABLET PO SCH (09:14)
[2019-01-22] MEDS: DOCUSATE SODIUM SUGAR FREE 100MG/10ML UDC NG SCH ×2 (09:15→17:44)
[2019-01-22] MEDS: TIMOLOL MALEATE 0.5% OPHTH DROPS 5ML LEFTEYE SCH ×2 (09:15→17:43)
[2019-01-22] MEDS: DORZOLAMIDE 2% OPHTH 10 ML BOTTLE LEFTEYE SCH ×2 (09:15→17:43)
[2019-01-22] MEDS: MICONAZOLE NITRATE 2% OINT 71GM TOP SCH ×2 (09:16→21:48)
[2019-01-22] MEDS: INSULIN GLARGINE UD 100 UNITS/ML SYR SUBCUT SCH (09:32)
[2019-01-22] MEDS ORDERED: OXYMETAZOLINE HCL NASAL SPRAY 15ML BOTHNSTRLS PRN (10:15)
[2019-01-22 10:59] LABS: BG BASE EXCESS 2.2 mmol/L (-2.0-2.0); BG CARBOXYHEMOGLOBIN 0.3 % (0.5-1.5); BG DEOXYHEMOGLOBIN 3.6 % (0.0-5.0); BG FRACTION INSPIRED OXYGEN 36; BG HCO3 ACT 26.6 mmol/L (22.0-26.0); BG METHEMOGLOBIN 0.1 % (0.0-1.5); BG OXYGEN SATURATION 96.4 % (92.0-98.5); BG PCO2 40.5 mmHg (35.0-45.0); BG PH 7.435 (7.350-7.450); BG PO2 91.1 mmHg (75.0-100.0); BG SAMPLE SITE RIGHT RADIAL; BG TOTAL HEMOGLOBIN 9.2 g/dL (12.0-18.0); BG VENT MODE NASAL CANNULA
[2019-01-22 13:06] LABS: ANTI-THROMBIN ACTIVITY 108 % (75-135); PROTEIN C FUNCTIONAL 84 % (73-180); PTT-LA 50.3 sec (0.0-51.9)
[2019-01-22 15:36] LABS: BG BASE EXCESS 2.8 mmol/L (-2.0-2.0); BG CARBOXYHEMOGLOBIN 0.1 % (0.5-1.5); BG DEOXYHEMOGLOBIN 4.3 % (0.0-5.0); BG FRACTION INSPIRED OXYGEN 36; BG HCO3 ACT 27.3 mmol/L (22.0-26.0); BG METHEMOGLOBIN 0.3 % (0.0-1.5); BG OXYGEN SATURATION 95.7 % (92.0-98.5); BG OXYHEMOGLOBIN 95.3 % (94.0-97.0); BG PCO2 41.4 mmHg (35.0-45.0); BG PH 7.437 (7.350-7.450); BG PO2 86.3 mmHg (75.0-100.0); BG SAMPLE SITE RIGHT RADIAL; BG TOTAL HEMOGLOBIN 8.9 g/dL (12.0-18.0); BG VENT MODE NASAL CANNULA
[2019-01-22] MEDS: PHENYLEPHRINE HCL 0.5% 15ML NASAL SPRAY BOTHNSTRLS PRN (18:34)
[2019-01-22] MEDS: RACEPINEPHRINE 2.25% 0.5ML NEB VIAL HHN PRN ×2 (19:06→20:36)
[2019-01-22] MEDS: MONTELUKAST SODIUM 10MG TABLET PO SCH (21:44)
[2019-01-22] MEDS: ATORVASTATIN CALCIUM 10MG TABLET PO SCH (21:46)
[2019-01-22] MEDS: EPOETIN ALFA 10000UNITS/ML VIAL SUBCUT SCH (21:50)
[2019-01-23] VITALS (92 sets, daily range): BP systolic 68–139; BP diastolic 44–83
[2019-01-23] MEDS: PHENYLEPHRINE HCL 0.5% 15ML NASAL SPRAY BOTHNSTRLS PRN (00:59)
[2019-01-23] MEDS: IPRATROPIUM/ALBUTEROL 0.5-3(2.5)MG/3ML NEB HHN SCH ×4 (01:49→20:50)
[2019-01-23 05:35] LABS: HEMATOCRIT. 24.5 % (36.0-48.0); HEMOGLOBIN. 8.1 g/dL (12.0-16.0); MEAN CORPUSCULAR HEMOGLOBIN 30.1 pg (28.0-32.0); MEAN CORPUSCULAR VOLUME 91.4 fL (81.0-99.0); MEAN PLATELET VOLUME 8.9 fl (7.4-10.4); PLATELET 209 x1000/uL (130-400); RED BLOOD CELL COUNT 2.68 mill/uL (4.2-5.4); RED CELL DISTRIBUTION WIDTH 16.7 % (11.6-14.6)
[2019-01-23] MEDS: BLOOD SUGAR DIAGNOSTIC STRIP TEST SCH ×4 (06:30→21:33)
[2019-01-23] MEDS: OMEPRAZOLE 20MG CAPSULE EXTENDED RELEASE PO SCH (07:29)
[2019-01-23] MEDS: GABAPENTIN 300MG CAPSULE PO SCH ×3 (07:30→21:34)
[2019-01-23] MEDS: CALCIUM ACETATE 667MG CAPSULE PO SCH ×3 (07:30→17:41)
[2019-01-23] MEDS: INSULIN LISPRO 100 UNITS/ML SUBCUT SCH ×4 (07:31→21:34)
[2019-01-23] MEDS: ACETAMINOPHEN 325MG TABLET PO PRN ×2 (07:31→19:33)
[2019-01-23] MEDS: LETAIRIS 5MG TABLET PO SCH (09:00)
[2019-01-23] MEDS: MICONAZOLE NITRATE 2% OINT 71GM TOP SCH ×2 (09:00→21:35)
[2019-01-23] MEDS: CARVEDILOL 6.25 MG TABLET PO SCH ×2 (09:00→21:00)
[2019-01-23] MEDS: TIMOLOL MALEATE 0.5% OPHTH DROPS 5ML LEFTEYE SCH ×2 (09:48→17:41)
[2019-01-23] MEDS: DORZOLAMIDE 2% OPHTH 10 ML BOTTLE LEFTEYE SCH ×2 (09:48→17:41)
[2019-01-23] MEDS: MEROPENEM 500 MG in SODIUM CHLORIDE 0.9% 50 ML IV SCH (09:48)
[2019-01-23] MEDS: DOCUSATE SODIUM SUGAR FREE 100MG/10ML UDC NG SCH ×2 (09:49→17:40)
[2019-01-23] MEDS: MIDODRINE HCL 5MG TABLET PO SCH ×3 (09:49→17:41)
[2019-01-23] MEDS: AMIODARONE HCL 200 MG TABLET PO SCH ×2 (09:49→21:34)
[2019-01-23] MEDS: INSULIN GLARGINE UD 100 UNITS/ML SYR SUBCUT SCH (09:50)
[2019-01-23] MEDS: NYSTATIN POWDER 15GM TOP SCH ×2 (09:50→17:43)
[2019-01-23] MEDS ORDERED: HEPARIN SODIUM 1,000 UNIT/1ML VIAL IV NR (11:15)
[2019-01-23 15:14] LABS: NUCLEATED RED BLOOD CELLS 1 /100 WBC; PLATELET ESTIMATE NORMAL
[2019-01-23] MEDS ORDERED: MORPHINE SULFATE 4 MG/ML CPJ (NOT FOR IM USE) IV PRN (15:15)
[2019-01-23] MEDS: ATORVASTATIN CALCIUM 10MG TABLET PO SCH (21:34)
[2019-01-23] MEDS: MONTELUKAST SODIUM 10MG TABLET PO SCH (21:34)
[2019-01-24] VITALS (84 sets, daily range): BP systolic 89–169; BP diastolic 46–127
[2019-01-24] MEDS: IPRATROPIUM/ALBUTEROL 0.5-3(2.5)MG/3ML NEB HHN SCH ×4 (02:28→20:19)
[2019-01-24 05:39] LABS: HEMATOCRIT. 25.8 % (36.0-48.0); HEMOGLOBIN. 8.6 g/dL (12.0-16.0); MEAN CORPUSCULAR HEMOGLOBIN 30.2 pg (28.0-32.0); MEAN CORPUSCULAR VOLUME 90.6 fL (81.0-99.0); MEAN PLATELET VOLUME 9.1 fl (7.4-10.4); PLATELET 274 x1000/uL (130-400); RED BLOOD CELL COUNT 2.85 mill/uL (4.2-5.4); RED CELL DISTRIBUTION WIDTH 16.2 % (11.6-14.6)
[2019-01-24] MEDS: BLOOD SUGAR DIAGNOSTIC STRIP TEST SCH ×4 (06:07→20:53)
[2019-01-24] MEDS: INSULIN LISPRO 100 UNITS/ML SUBCUT SCH ×4 (06:11→20:58)
[2019-01-24] MEDS: GABAPENTIN 300MG CAPSULE PO SCH ×3 (06:12→20:59)
[2019-01-24] MEDS: CALCIUM ACETATE 667MG CAPSULE PO SCH ×3 (06:12→17:23)
[2019-01-24] MEDS: OMEPRAZOLE 20MG CAPSULE EXTENDED RELEASE PO SCH (06:12)
[2019-01-24 08:07] LABS: PLATELET ESTIMATE NORMAL
[2019-01-24] MEDS: LETAIRIS 5MG TABLET PO SCH (09:00)
[2019-01-24] MEDS: CARVEDILOL 6.25 MG TABLET PO SCH ×2 (09:00→20:58)
[2019-01-24] MEDS: MEROPENEM 500 MG in SODIUM CHLORIDE 0.9% 50 ML IV SCH (09:26)
[2019-01-24] MEDS: DORZOLAMIDE 2% OPHTH 10 ML BOTTLE LEFTEYE SCH ×2 (09:27→17:25)
[2019-01-24] MEDS: DOCUSATE SODIUM SUGAR FREE 100MG/10ML UDC NG SCH ×2 (09:27→17:23)
[2019-01-24] MEDS: TIMOLOL MALEATE 0.5% OPHTH DROPS 5ML LEFTEYE SCH ×2 (09:27→17:25)
[2019-01-24] MEDS: MIDODRINE HCL 5MG TABLET PO SCH ×3 (09:27→17:23)
[2019-01-24] MEDS: AMIODARONE HCL 200 MG TABLET PO SCH ×2 (09:29→20:57)
[2019-01-24] MEDS: MICONAZOLE NITRATE 2% OINT 71GM TOP SCH ×2 (09:33→20:58)
[2019-01-24] MEDS: INSULIN GLARGINE UD 100 UNITS/ML SYR SUBCUT SCH (11:18)
[2019-01-24] MEDS ORDERED: VANCOMYCIN 1 G PREMIX 200 ML IV NR (17:00)
[2019-01-24] MEDS: ATORVASTATIN CALCIUM 10MG TABLET PO SCH (20:56)
[2019-01-24] MEDS: MONTELUKAST SODIUM 10MG TABLET PO SCH (20:56)
[2019-01-25] VITALS (84 sets, daily range): BP systolic 78–136; BP diastolic 39–73
[2019-01-25] MEDS: IPRATROPIUM/ALBUTEROL 0.5-3(2.5)MG/3ML NEB HHN SCH ×4 (02:04→21:14)
[2019-01-25 05:32] LABS: HEMATOCRIT. 26.6 % (36.0-48.0); HEMOGLOBIN. 8.7 g/dL (12.0-16.0); MEAN CORPUSCULAR HEMOGLOBIN 29.7 pg (28.0-32.0); MEAN CORPUSCULAR VOLUME 90.5 fL (81.0-99.0); MEAN PLATELET VOLUME 9.1 fl (7.4-10.4); PLATELET 309 x1000/uL (130-400); RED BLOOD CELL COUNT 2.94 mill/uL (4.2-5.4); RED CELL DISTRIBUTION WIDTH 16.2 % (11.6-14.6)
[2019-01-25] MEDS: BLOOD SUGAR DIAGNOSTIC STRIP TEST SCH ×4 (06:30→21:00)
[2019-01-25] MEDS: CALCIUM ACETATE 667MG CAPSULE PO SCH ×3 (06:36→17:27)
[2019-01-25] MEDS: GABAPENTIN 300MG CAPSULE PO SCH ×3 (06:36→21:09)
[2019-01-25] MEDS: OMEPRAZOLE 20MG CAPSULE EXTENDED RELEASE PO SCH (06:36)
[2019-01-25] MEDS: INSULIN LISPRO 100 UNITS/ML SUBCUT SCH ×4 (06:37→21:11)
[2019-01-25 07:21] LABS: PLATELET ESTIMATE NORMAL
[2019-01-25] MEDS: CARVEDILOL 6.25 MG TABLET PO SCH ×2 (09:00→21:00)
[2019-01-25 09:14] LABS: BG BASE EXCESS 1.5 mmol/L (-2.0-2.0); BG CARBOXYHEMOGLOBIN 0.1 % (0.5-1.5); BG DEOXYHEMOGLOBIN 1.9 % (0.0-5.0); BG FRACTION INSPIRED OXYGEN 36; BG HCO3 ACT 26.7 mmol/L (22.0-26.0); BG METHEMOGLOBIN 0.2 % (0.0-1.5); BG OXYGEN SATURATION 98.1 % (92.0-98.5); BG OXYHEMOGLOBIN 97.8 % (94.0-97.0); BG PCO2 45.2 mmHg (35.0-45.0); BG PO2 115.8 mmHg (75.0-100.0); BG SAMPLE SITE RIGHT BRACHIAL; BG VENT MODE NASAL CANNULA
[2019-01-25] MEDS: MIDODRINE HCL 5MG TABLET PO SCH ×3 (09:38→17:25)
[2019-01-25] MEDS: DOCUSATE SODIUM SUGAR FREE 100MG/10ML UDC NG SCH ×2 (09:38→17:24)
[2019-01-25] MEDS: AMIODARONE HCL 200 MG TABLET PO SCH ×2 (09:38→21:09)
[2019-01-25] MEDS: TIMOLOL MALEATE 0.5% OPHTH DROPS 5ML LEFTEYE SCH ×2 (09:39→17:25)
[2019-01-25] MEDS: DORZOLAMIDE 2% OPHTH 10 ML BOTTLE LEFTEYE SCH ×2 (09:39→17:25)
[2019-01-25] MEDS: INSULIN GLARGINE UD 100 UNITS/ML SYR SUBCUT SCH (09:40)
[2019-01-25] MEDS: MEROPENEM 500 MG in SODIUM CHLORIDE 0.9% 50 ML IV SCH (09:41)
[2019-01-25] MEDS: LETAIRIS 5MG TABLET PO SCH (09:41)
[2019-01-25] MEDS: MICONAZOLE NITRATE 2% OINT 71GM TOP SCH ×2 (09:42→21:09)
[2019-01-25] MEDS ORDERED: HEPARIN SODIUM 1,000 UNIT/1ML VIAL IV SCH (11:30)
[2019-01-25] MEDS: ATORVASTATIN CALCIUM 10MG TABLET PO SCH (21:09)
[2019-01-25] MEDS: MONTELUKAST SODIUM 10MG TABLET PO SCH (21:09)
[2019-01-25] MEDS: ACETAMINOPHEN 325MG TABLET PO PRN (21:11)
[2019-01-25] MEDS: NOREPINEPHRINE 16 MG in DEXTROSE 5% WATER 250 ML IV PRN (22:52)
[2019-01-26] VITALS (95 sets, daily range): BP systolic 69–173; BP diastolic 43–86
[2019-01-26] MEDS: IPRATROPIUM/ALBUTEROL 0.5-3(2.5)MG/3ML NEB HHN SCH ×4 (01:31→20:36)
[2019-01-26] MEDS: BLOOD SUGAR DIAGNOSTIC STRIP TEST SCH ×4 (05:56→21:37)
[2019-01-26] MEDS: GABAPENTIN 300MG CAPSULE PO SCH ×3 (06:00→21:10)
[2019-01-26] MEDS: CALCIUM ACETATE 667MG CAPSULE PO SCH ×3 (06:00→17:12)
[2019-01-26] MEDS: OMEPRAZOLE 20MG CAPSULE EXTENDED RELEASE PO SCH (06:00)
[2019-01-26] MEDS: INSULIN LISPRO 100 UNITS/ML SUBCUT SCH ×4 (06:01→21:11)
[2019-01-26 06:07] LABS: HEMATOCRIT. 26.7 % (36.0-48.0); HEMOGLOBIN. 8.8 g/dL (12.0-16.0); MEAN CORPUSCULAR HEMOGLOBIN 29.8 pg (28.0-32.0); MEAN CORPUSCULAR VOLUME 90.7 fL (81.0-99.0); RED BLOOD CELL COUNT 2.94 mill/uL (4.2-5.4); RED CELL DISTRIBUTION WIDTH 16.4 % (11.6-14.6)
[2019-01-26] MEDS: CARVEDILOL 6.25 MG TABLET PO SCH ×3 (08:20→21:09)
[2019-01-26] MEDS: DOCUSATE SODIUM SUGAR FREE 100MG/10ML UDC NG SCH ×2 (09:07→17:12)
[2019-01-26] MEDS: LETAIRIS 5MG TABLET PO SCH (09:08)
[2019-01-26] MEDS: AMIODARONE HCL 200 MG TABLET PO SCH ×2 (09:08→21:11)
[2019-01-26] MEDS: MIDODRINE HCL 5MG TABLET PO SCH ×3 (09:08→17:12)
[2019-01-26] MEDS: MEROPENEM 500 MG in SODIUM CHLORIDE 0.9% 50 ML IV SCH (09:08)
[2019-01-26] MEDS: DORZOLAMIDE 2% OPHTH 10 ML BOTTLE LEFTEYE SCH ×2 (09:08→17:12)
[2019-01-26] MEDS: MICONAZOLE NITRATE 2% OINT 71GM TOP SCH ×2 (09:09→21:35)
[2019-01-26] MEDS: TIMOLOL MALEATE 0.5% OPHTH DROPS 5ML LEFTEYE SCH ×2 (09:09→17:12)
[2019-01-26] MEDS: INSULIN GLARGINE UD 100 UNITS/ML SYR SUBCUT SCH (09:10)
[2019-01-26 11:28] LABS: PLATELET 359 x1000/uL (130-400)
[2019-01-26 11:32] LABS: PLATELET ESTIMATE NORMAL
[2019-01-26 12:52] LABS: BG BASE EXCESS 0.6 mmol/L (-2.0-2.0); BG CARBOXYHEMOGLOBIN 0.3 % (0.5-1.5); BG DEOXYHEMOGLOBIN 1.2 % (0.0-5.0); BG FRACTION INSPIRED OXYGEN 60; BG METHEMOGLOBIN 0.1 % (0.0-1.5); BG OXYGEN SATURATION 98.8 % (92.0-98.5); BG OXYHEMOGLOBIN 98.4 % (94.0-97.0); BG PCO2 51.8 mmHg (35.0-45.0); BG PH 7.335 (7.350-7.450); BG PO2 194.4 mmHg (75.0-100.0); BG SAMPLE SITE RIGHT RADIAL; BG TIDAL VOLUME(mL) 500 mL; BG TOTAL HEMOGLOBIN 10.2 g/dL (12.0-18.0); BG VENT MODE VENT - A/C; BG VENT RATE 12 set
[2019-01-26] MEDS: PROPOFOL 10MG/ML 100ML 100 ML IV PRN ×3 (12:56→22:57)
[2019-01-26] MEDS: ATORVASTATIN CALCIUM 10MG TABLET PO SCH (21:10)
[2019-01-26] MEDS: MONTELUKAST SODIUM 10MG TABLET PO SCH (21:10)
[2019-01-27] VITALS (89 sets, daily range): BP systolic 88–143; BP diastolic 31–73
[2019-01-27] MEDS: IPRATROPIUM/ALBUTEROL 0.5-3(2.5)MG/3ML NEB HHN SCH ×4 (02:09→20:28)
[2019-01-27] MEDS: PROPOFOL 10MG/ML 100ML 100 ML IV PRN (03:46)
[2019-01-27] MEDS: GABAPENTIN 300MG CAPSULE PO SCH ×3 (07:02→22:08)
[2019-01-27] MEDS: CALCIUM ACETATE 667MG CAPSULE PO SCH ×3 (07:02→17:00)
[2019-01-27] MEDS: INSULIN LISPRO 100 UNITS/ML SUBCUT SCH ×4 (07:03→22:12)
[2019-01-27] MEDS: BLOOD SUGAR DIAGNOSTIC STRIP TEST SCH ×4 (07:03→21:00)
[2019-01-27 07:56] LABS: HEMATOCRIT. 28.3 % (36.0-48.0); HEMOGLOBIN. 9.2 g/dL (12.0-16.0); MEAN CORPUSCULAR HEMOGLOBIN 29.8 pg (28.0-32.0); MEAN CORPUSCULAR VOLUME 91.9 fL (81.0-99.0); MEAN PLATELET VOLUME 9.2 fl (7.4-10.4); PLATELET 406 x1000/uL (130-400); RED BLOOD CELL COUNT 3.08 mill/uL (4.2-5.4); RED CELL DISTRIBUTION WIDTH 16.2 % (11.6-14.6)
[2019-01-27] MEDS: CARVEDILOL 6.25 MG TABLET PO SCH ×2 (08:29→21:00)
[2019-01-27] MEDS: PANTOPRAZOLE SODIUM 40 MG/VIAL IV SCH (08:39)
[2019-01-27] MEDS: DOCUSATE SODIUM SUGAR FREE 100MG/10ML UDC NG SCH ×2 (08:39→18:39)
[2019-01-27] MEDS: MIDODRINE HCL 5MG TABLET PO SCH ×3 (08:40→18:42)
[2019-01-27] MEDS: AMIODARONE HCL 200 MG TABLET PO SCH ×2 (08:40→22:08)
[2019-01-27] MEDS: TIMOLOL MALEATE 0.5% OPHTH DROPS 5ML LEFTEYE SCH ×2 (08:41→18:39)
[2019-01-27] MEDS: DORZOLAMIDE 2% OPHTH 10 ML BOTTLE LEFTEYE SCH ×2 (08:41→18:39)
[2019-01-27] MEDS: LETAIRIS 5MG TABLET PO SCH (08:41)
[2019-01-27] MEDS: MICONAZOLE NITRATE 2% OINT 71GM TOP SCH ×2 (09:00→21:00)
[2019-01-27] MEDS ORDERED: LORAZEPAM 2MG/ML CPJ IV PRN (09:15)
[2019-01-27] MEDS: INSULIN GLARGINE UD 100 UNITS/ML SYR SUBCUT SCH (09:29)
[2019-01-27 09:49] LABS: BG BASE EXCESS 0.8 mmol/L (-2.0-2.0); BG CARBOXYHEMOGLOBIN 0.3 % (0.5-1.5); BG DEOXYHEMOGLOBIN 1.4 % (0.0-5.0); BG FRACTION INSPIRED OXYGEN 60; BG HCO3 ACT 25.5 mmol/L (22.0-26.0); BG METHEMOGLOBIN 1.4 % (0.0-1.5); BG OXYGEN SATURATION 98.6 % (92.0-98.5); BG OXYHEMOGLOBIN 96.9 % (94.0-97.0); BG PCO2 41.5 mmHg (35.0-45.0); BG PH 7.407 (7.350-7.450); BG PO2 206.8 mmHg (75.0-100.0); BG SAMPLE SITE RIGHT RADIAL; BG TIDAL VOLUME(mL) 500 mL; BG TOTAL HEMOGLOBIN 9.3 g/dL (12.0-18.0); BG VENT MODE VENT - A/C; BG VENT RATE 12 set
[2019-01-27] MEDS: FENTANYL CITRATE/PF 500 MCG in SODIUM CHLORIDE 0.9% 40 ML IV PRN ×2 (12:49→19:34)
[2019-01-27 13:25] LABS: PLATELET ESTIMATE NORMAL
[2019-01-27] MEDS ORDERED: HEPARIN SODIUM 1,000 UNIT/1ML VIAL IV NR (14:15)
[2019-01-27] MEDS: MONTELUKAST SODIUM 10MG TABLET PO SCH (22:08)
[2019-01-27] MEDS: ATORVASTATIN CALCIUM 10MG TABLET PO SCH (22:08)
[2019-01-28] VITALS (76 sets, daily range): BP systolic 81–139; BP diastolic 39–73
[2019-01-28] MEDS: IPRATROPIUM/ALBUTEROL 0.5-3(2.5)MG/3ML NEB HHN SCH ×4 (02:35→20:14)
[2019-01-28] MEDS: ACETAMINOPHEN 325MG TABLET PO PRN (05:03)
[2019-01-28 05:41] LABS: HEMATOCRIT. 28.3 % (36.0-48.0); HEMOGLOBIN. 9.3 g/dL (12.0-16.0); MEAN CORPUSCULAR HEMOGLOBIN 29.8 pg (28.0-32.0); MEAN CORPUSCULAR VOLUME 90.4 fL (81.0-99.0); MEAN PLATELET VOLUME 8.9 fl (7.4-10.4); PLATELET 411 x1000/uL (130-400); RED BLOOD CELL COUNT 3.13 mill/uL (4.2-5.4); RED CELL DISTRIBUTION WIDTH 16.3 % (11.6-14.6)
[2019-01-28] MEDS: GABAPENTIN 300MG CAPSULE PO SCH ×3 (06:54→22:46)
[2019-01-28] MEDS: CALCIUM ACETATE 667MG CAPSULE PO SCH ×3 (06:55→17:00)
[2019-01-28] MEDS: INSULIN LISPRO 100 UNITS/ML SUBCUT SCH ×4 (06:56→22:54)
[2019-01-28] MEDS: BLOOD SUGAR DIAGNOSTIC STRIP TEST SCH ×4 (06:56→21:00)
[2019-01-28 08:06] LABS: PLATELET ESTIMATE SLIGHTLY INCREASED
[2019-01-28] MEDS: CARVEDILOL 6.25 MG TABLET PO SCH ×2 (09:00→22:47)
[2019-01-28] MEDS: AMIODARONE HCL 200 MG TABLET PO SCH ×2 (09:00→22:47)
[2019-01-28] MEDS: LETAIRIS 5MG TABLET PO SCH (09:00)
[2019-01-28] MEDS: DOCUSATE SODIUM SUGAR FREE 100MG/10ML UDC NG SCH ×2 (09:00→17:15)
[2019-01-28] MEDS: MIDODRINE HCL 5MG TABLET PO SCH ×3 (09:00→17:15)
[2019-01-28] MEDS: PANTOPRAZOLE SODIUM 40 MG/VIAL IV SCH (09:09)
[2019-01-28] MEDS: TIMOLOL MALEATE 0.5% OPHTH DROPS 5ML LEFTEYE SCH ×2 (09:09→17:16)
[2019-01-28] MEDS: DORZOLAMIDE 2% OPHTH 10 ML BOTTLE LEFTEYE SCH ×2 (09:09→17:15)
[2019-01-28] MEDS ORDERED: LIDOCAINE HCL/EPINEPHRINE 1%-EPI 1:100,000 20 ML VIAL ONE (10:34)
[2019-01-28] MEDS: INSULIN GLARGINE UD 100 UNITS/ML SYR SUBCUT SCH (10:55)
[2019-01-28] MEDS ORDERED: VECURONIUM BROMIDE 10 MG/VIAL IV ONE (12:12)
[2019-01-28] MEDS ORDERED: FENTANYL CITRATE/PF 50MCG/ML 2ML VIAL ONE (12:12)
[2019-01-28] MEDS ORDERED: SODIUM CHLORIDE 0.9% 10ML VIAL ONE (12:12)
[2019-01-28] MEDS ORDERED: MIDAZOLAM HCL 2 MG/2 ML VIAL ONE (12:12)
[2019-01-28] MEDS ORDERED: MIDODRINE HCL 2.5MG TABLET PO SCH (15:45)
[2019-01-28] MEDS: FENTANYL CITRATE/PF 500 MCG in SODIUM CHLORIDE 0.9% 40 ML IV PRN (21:37)
[2019-01-28] MEDS: MONTELUKAST SODIUM 10MG TABLET PO SCH (22:47)
[2019-01-28] MEDS: ATORVASTATIN CALCIUM 10MG TABLET PO SCH (22:47)
[2019-01-29] VITALS (44 sets, daily range): BP systolic 64–150; BP diastolic 37–76
[2019-01-29] MEDS: IPRATROPIUM/ALBUTEROL 0.5-3(2.5)MG/3ML NEB HHN SCH ×4 (03:28→19:50)
[2019-01-29 05:47] LABS: HEMATOCRIT. 27.7 % (36.0-48.0); HEMOGLOBIN. 8.9 g/dL (12.0-16.0); MEAN CORPUSCULAR HEMOGLOBIN 29.4 pg (28.0-32.0); MEAN CORPUSCULAR VOLUME 90.7 fL (81.0-99.0); MEAN PLATELET VOLUME 8.8 fl (7.4-10.4); PLATELET 395 x1000/uL (130-400); RED BLOOD CELL COUNT 3.05 mill/uL (4.2-5.4); RED CELL DISTRIBUTION WIDTH 16.4 % (11.6-14.6)
[2019-01-29] MEDS: GABAPENTIN 300MG CAPSULE PO SCH ×3 (05:59→22:19)
[2019-01-29] MEDS: BLOOD SUGAR DIAGNOSTIC STRIP TEST SCH ×4 (06:00→21:00)
[2019-01-29] MEDS: CALCIUM ACETATE 667MG CAPSULE PO SCH ×3 (06:00→17:00)
[2019-01-29] MEDS: INSULIN LISPRO 100 UNITS/ML SUBCUT SCH ×4 (06:08→22:24)
[2019-01-29] MEDS: CARVEDILOL 6.25 MG TABLET PO SCH ×2 (08:40→21:00)
[2019-01-29] MEDS: AMIODARONE HCL 200 MG TABLET PO SCH ×2 (09:11→22:20)
[2019-01-29] MEDS: DOCUSATE SODIUM SUGAR FREE 100MG/10ML UDC NG SCH ×2 (09:11→18:06)
[2019-01-29] MEDS: MIDODRINE HCL 5MG TABLET PO SCH ×3 (09:11→18:06)
[2019-01-29] MEDS: LETAIRIS 5MG TABLET PO SCH (09:12)
[2019-01-29] MEDS: INSULIN GLARGINE UD 100 UNITS/ML SYR SUBCUT SCH (09:14)
[2019-01-29] MEDS: DORZOLAMIDE 2% OPHTH 10 ML BOTTLE LEFTEYE SCH ×2 (09:18→18:08)
[2019-01-29] MEDS: PANTOPRAZOLE SODIUM 40 MG/VIAL IV SCH (09:18)
[2019-01-29] MEDS: TIMOLOL MALEATE 0.5% OPHTH DROPS 5ML LEFTEYE SCH ×2 (09:18→18:08)
[2019-01-29] MEDS: METOCLOPRAMIDE HCL 10MG/2ML VIAL IV SCH ×2 (13:05→18:07)
[2019-01-29] MEDS ORDERED: BISACODYL 5MG TABLET PO PRN (16:45)
[2019-01-29] MEDS ORDERED: BISACODYL 5MG TABLET PO NR (16:45)
[2019-01-29] MEDS ORDERED: HEPARIN SODIUM 1,000 UNIT/1ML VIAL IV NR (18:15)
[2019-01-29] MEDS: MONTELUKAST SODIUM 10MG TABLET PO SCH (22:19)
[2019-01-29] MEDS: ACETAMINOPHEN 325MG TABLET PO PRN ×2 (22:20→23:44)
[2019-01-29] MEDS: ATORVASTATIN CALCIUM 10MG TABLET PO SCH (22:20)
[2019-01-30] VITALS (65 sets, daily range): BP systolic 88–123; BP diastolic 55–73
[2019-01-30] MEDS: IPRATROPIUM/ALBUTEROL 0.5-3(2.5)MG/3ML NEB HHN SCH ×4 (02:09→20:20)
[2019-01-30] MEDS: INSULIN LISPRO 100 UNITS/ML SUBCUT SCH ×4 (05:31→21:00)
[2019-01-30] MEDS: BLOOD SUGAR DIAGNOSTIC STRIP TEST SCH ×4 (05:32→20:50)
[2019-01-30] MEDS: CALCIUM ACETATE 667MG CAPSULE PO SCH ×3 (05:32→18:51)
[2019-01-30] MEDS: METOCLOPRAMIDE HCL 10MG/2ML VIAL IV SCH ×5 (05:32→23:00)
[2019-01-30] MEDS: GABAPENTIN 300MG CAPSULE PO SCH ×3 (05:32→23:00)
[2019-01-30] MEDS: MIDODRINE HCL 5MG TABLET PO SCH ×3 (08:40→18:39)
[2019-01-30] MEDS: DOCUSATE SODIUM SUGAR FREE 100MG/10ML UDC NG SCH ×2 (08:40→18:52)
[2019-01-30] MEDS: PANTOPRAZOLE SODIUM 40 MG/VIAL IV SCH (08:40)
[2019-01-30] MEDS: AMIODARONE HCL 200 MG TABLET PO SCH ×2 (08:40→21:00)
[2019-01-30] MEDS: TIMOLOL MALEATE 0.5% OPHTH DROPS 5ML LEFTEYE SCH ×2 (08:44→18:40)
[2019-01-30] MEDS: CARVEDILOL 6.25 MG TABLET PO SCH ×2 (08:44→20:59)
[2019-01-30] MEDS: DORZOLAMIDE 2% OPHTH 10 ML BOTTLE LEFTEYE SCH ×2 (08:44→18:40)
[2019-01-30 09:16] LABS: HEMATOCRIT. 29.6 % (36.0-48.0); HEMOGLOBIN. 9.7 g/dL (12.0-16.0); MEAN CORPUSCULAR HEMOGLOBIN 29.7 pg (28.0-32.0); MEAN CORPUSCULAR VOLUME 90.8 fL (81.0-99.0); PLATELET 436 x1000/uL (130-400); RED BLOOD CELL COUNT 3.26 mill/uL (4.2-5.4); RED CELL DISTRIBUTION WIDTH 16.5 % (11.6-14.6)
[2019-01-30] MEDS: INSULIN GLARGINE UD 100 UNITS/ML SYR SUBCUT SCH (11:47)
[2019-01-30 12:05] LABS: PLATELET ESTIMATE NORMAL
[2019-01-30] MEDS: MONTELUKAST SODIUM 10MG TABLET PO SCH (21:00)
[2019-01-30] MEDS: ATORVASTATIN CALCIUM 10MG TABLET PO SCH (21:00)
[2019-01-30] MEDS: ONDANSETRON HCL 4MG/2ML INJ IV PRN (21:13)
[2019-01-30 22:30] LABS: PLATELET ESTIMATE INCREASED
[2019-01-31] VITALS (89 sets, daily range): BP systolic 65–170; BP diastolic 47–94
[2019-01-31] MEDS: IPRATROPIUM/ALBUTEROL 0.5-3(2.5)MG/3ML NEB HHN SCH ×4 (02:20→20:06)
[2019-01-31 05:22] LABS: HEMATOCRIT. 29.1 % (36.0-48.0); HEMOGLOBIN. 9.4 g/dL (12.0-16.0); MEAN CORPUSCULAR HEMOGLOBIN 29.1 pg (28.0-32.0); MEAN CORPUSCULAR VOLUME 90.2 fL (81.0-99.0); MEAN PLATELET VOLUME 8.6 fl (7.4-10.4); PLATELET 457 x1000/uL (130-400); RED BLOOD CELL COUNT 3.23 mill/uL (4.2-5.4); RED CELL DISTRIBUTION WIDTH 16.3 % (11.6-14.6)
[2019-01-31] MEDS: BLOOD SUGAR DIAGNOSTIC STRIP TEST SCH ×4 (05:49→20:05)
[2019-01-31] MEDS: CALCIUM ACETATE 667MG CAPSULE PO SCH ×3 (05:50→18:02)
[2019-01-31] MEDS: GABAPENTIN 300MG CAPSULE PO SCH ×3 (05:50→23:34)
[2019-01-31] MEDS: METOCLOPRAMIDE HCL 10MG/2ML VIAL IV SCH ×4 (05:50→23:34)
[2019-01-31] MEDS: INSULIN LISPRO 100 UNITS/ML SUBCUT SCH ×4 (05:51→20:24)
[2019-01-31 08:21] LABS: PLATELET ESTIMATE INCREASED
[2019-01-31] MEDS: DOCUSATE SODIUM SUGAR FREE 100MG/10ML UDC NG SCH ×2 (09:00→18:02)
[2019-01-31] MEDS: CARVEDILOL 6.25 MG TABLET PO SCH ×2 (09:00→20:05)
[2019-01-31] MEDS: INSULIN GLARGINE UD 100 UNITS/ML SYR SUBCUT SCH (10:16)
[2019-01-31] MEDS: DORZOLAMIDE 2% OPHTH 10 ML BOTTLE LEFTEYE SCH ×2 (10:19→18:03)
[2019-01-31] MEDS: TIMOLOL MALEATE 0.5% OPHTH DROPS 5ML LEFTEYE SCH ×2 (10:19→18:04)
[2019-01-31] MEDS ORDERED: HEPARIN SODIUM 1,000 UNIT/1ML VIAL IV NR (10:45)
[2019-01-31] MEDS: AMIODARONE HCL 200 MG TABLET PO SCH ×2 (12:19→20:24)
[2019-01-31] MEDS: PANTOPRAZOLE SODIUM 40 MG/VIAL IV SCH (12:19)
[2019-01-31] MEDS: MIDODRINE HCL 5MG TABLET PO SCH ×3 (12:20→18:03)
[2019-01-31] MEDS: ATORVASTATIN CALCIUM 10MG TABLET PO SCH (20:24)
[2019-01-31] MEDS: MONTELUKAST SODIUM 10MG TABLET PO SCH (20:25)
[2019-01-31] MEDS: ONDANSETRON HCL 4MG/2ML INJ IV PRN (20:31)
[2019-02-01] VITALS (60 sets, daily range): BP systolic 79–122; BP diastolic 38–70
[2019-02-01] MEDS: IPRATROPIUM/ALBUTEROL 0.5-3(2.5)MG/3ML NEB HHN SCH ×3 (02:05→15:32)
[2019-02-01 05:50] LABS: HEMATOCRIT. 30.9 % (36.0-48.0); HEMOGLOBIN. 10.1 g/dL (12.0-16.0); MEAN CORPUSCULAR HEMOGLOBIN 29.3 pg (28.0-32.0); MEAN PLATELET VOLUME 8.8 fl (7.4-10.4); PLATELET 442 x1000/uL (130-400); RED BLOOD CELL COUNT 3.43 mill/uL (4.2-5.4); RED CELL DISTRIBUTION WIDTH 16.1 % (11.6-14.6)
[2019-02-01] MEDS: GABAPENTIN 300MG CAPSULE PO SCH ×3 (06:26→22:09)
[2019-02-01] MEDS: INSULIN LISPRO 100 UNITS/ML SUBCUT SCH ×4 (06:26→20:55)
[2019-02-01] MEDS: CALCIUM ACETATE 667MG CAPSULE PO SCH ×3 (06:26→16:29)
[2019-02-01] MEDS: METOCLOPRAMIDE HCL 10MG/2ML VIAL IV SCH ×3 (06:26→17:03)
[2019-02-01] MEDS: BLOOD SUGAR DIAGNOSTIC STRIP TEST SCH ×4 (06:27→20:55)
[2019-02-01 07:10] LABS: PLATELET ESTIMATE INCREASED
[2019-02-01] MEDS: DOCUSATE SODIUM SUGAR FREE 100MG/10ML UDC NG SCH ×2 (09:00→16:25)
[2019-02-01] MEDS: CARVEDILOL 6.25 MG TABLET PO SCH ×2 (09:00→20:54)
[2019-02-01] MEDS ORDERED: REGADENOSON 0.4 MG/5 ML IV ONE (09:39)
[2019-02-01] MEDS: TIMOLOL MALEATE 0.5% OPHTH DROPS 5ML LEFTEYE SCH ×2 (09:49→16:29)
[2019-02-01] MEDS: DORZOLAMIDE 2% OPHTH 10 ML BOTTLE LEFTEYE SCH ×2 (09:49→16:29)
[2019-02-01] MEDS: PANTOPRAZOLE SODIUM 40 MG/VIAL IV SCH (09:49)
[2019-02-01] MEDS: MIDODRINE HCL 5MG TABLET PO SCH ×3 (09:50→16:29)
[2019-02-01] MEDS: INSULIN GLARGINE UD 100 UNITS/ML SYR SUBCUT SCH (09:50)
[2019-02-01] MEDS: AMIODARONE HCL 200 MG TABLET PO SCH ×2 (09:50→20:53)
[2019-02-01] MEDS: MONTELUKAST SODIUM 10MG TABLET PO SCH (20:54)
[2019-02-01] MEDS: ATORVASTATIN CALCIUM 10MG TABLET PO SCH (20:54)
[2019-02-01] MEDS: NOREPINEPHRINE 16 MG in DEXTROSE 5% WATER 250 ML IV PRN (23:05)
[2019-02-02] VITALS (76 sets, daily range): BP systolic 87–139; BP diastolic 49–77
[2019-02-02] MEDS: METOCLOPRAMIDE HCL 10MG/2ML VIAL IV SCH ×5 (00:45→22:54)
[2019-02-02] MEDS: IPRATROPIUM/ALBUTEROL 0.5-3(2.5)MG/3ML NEB HHN SCH ×4 (00:53→21:03)
[2019-02-02] MEDS: GABAPENTIN 300MG CAPSULE PO SCH ×3 (05:27→22:53)
[2019-02-02 05:44] LABS: HEMATOCRIT. 30.8 % (36.0-48.0); HEMOGLOBIN. 10.2 g/dL (12.0-16.0); MEAN CORPUSCULAR HEMOGLOBIN 29.9 pg (28.0-32.0); MEAN CORPUSCULAR VOLUME 90.3 fL (81.0-99.0); MEAN PLATELET VOLUME 8.9 fl (7.4-10.4); PLATELET 441 x1000/uL (130-400); RED BLOOD CELL COUNT 3.41 mill/uL (4.2-5.4); RED CELL DISTRIBUTION WIDTH 16.7 % (11.6-14.6)
[2019-02-02] MEDS: BLOOD SUGAR DIAGNOSTIC STRIP TEST SCH ×4 (06:30→21:00)
[2019-02-02] MEDS: INSULIN LISPRO 100 UNITS/ML SUBCUT SCH ×4 (06:56→22:10)
[2019-02-02] MEDS: CALCIUM ACETATE 667MG CAPSULE PO SCH ×3 (06:56→17:46)
[2019-02-02] MEDS: CARVEDILOL 6.25 MG TABLET PO SCH ×2 (08:47→21:00)
[2019-02-02] MEDS: AMIODARONE HCL 200 MG TABLET PO SCH ×2 (09:15→22:53)
[2019-02-02] MEDS: DORZOLAMIDE 2% OPHTH 10 ML BOTTLE LEFTEYE SCH ×2 (09:15→17:46)
[2019-02-02] MEDS: TIMOLOL MALEATE 0.5% OPHTH DROPS 5ML LEFTEYE SCH ×2 (09:15→17:46)
[2019-02-02] MEDS: DOCUSATE SODIUM SUGAR FREE 100MG/10ML UDC NG SCH ×2 (09:15→17:46)
[2019-02-02] MEDS: MIDODRINE HCL 5MG TABLET PO SCH ×3 (09:15→17:46)
[2019-02-02] MEDS: PANTOPRAZOLE SODIUM 40 MG/VIAL IV SCH (09:15)
[2019-02-02] MEDS: INSULIN GLARGINE UD 100 UNITS/ML SYR SUBCUT SCH (09:18)
[2019-02-02 13:01] LABS: NUCLEATED RED BLOOD CELLS 2 /100 WBC; PLATELET ESTIMATE SLIGHTLY INCREASED
[2019-02-02] MEDS: ATORVASTATIN CALCIUM 10MG TABLET PO SCH (22:53)
[2019-02-02] MEDS: MONTELUKAST SODIUM 10MG TABLET PO SCH (22:54)
[2019-02-03] VITALS (36 sets, daily range): BP systolic 80–122; BP diastolic 35–79
[2019-02-03] MEDS: IPRATROPIUM/ALBUTEROL 0.5-3(2.5)MG/3ML NEB HHN SCH ×4 (01:18→20:55)
[2019-02-03 06:21] LABS: HEMATOCRIT. 31.9 % (36.0-48.0); HEMOGLOBIN. 10.2 g/dL (12.0-16.0); MEAN CORPUSCULAR HEMOGLOBIN 28.9 pg (28.0-32.0); MEAN CORPUSCULAR VOLUME 90.5 fL (81.0-99.0); MEAN PLATELET VOLUME 9.3 fl (7.4-10.4); PLATELET 444 x1000/uL (130-400); RED BLOOD CELL COUNT 3.53 mill/uL (4.2-5.4); RED CELL DISTRIBUTION WIDTH 16.6 % (11.6-14.6)
[2019-02-03] MEDS: METOCLOPRAMIDE HCL 10MG/2ML VIAL IV SCH ×3 (06:26→18:17)
[2019-02-03] MEDS: BLOOD SUGAR DIAGNOSTIC STRIP TEST SCH ×4 (06:26→21:00)
[2019-02-03] MEDS: CALCIUM ACETATE 667MG CAPSULE PO SCH ×3 (06:26→18:17)
[2019-02-03] MEDS: INSULIN LISPRO 100 UNITS/ML SUBCUT SCH ×4 (06:26→22:25)
[2019-02-03] MEDS: GABAPENTIN 300MG CAPSULE PO SCH ×3 (06:26→20:47)
[2019-02-03] MEDS: CARVEDILOL 6.25 MG TABLET PO SCH ×2 (09:00→21:00)
[2019-02-03] MEDS ORDERED: INSULIN GLARGINE UD 100 UNITS/ML SYR SUBCUT SCH (10:00)
[2019-02-03] MEDS: TIMOLOL MALEATE 0.5% OPHTH DROPS 5ML LEFTEYE SCH ×2 (10:20→18:15)
[2019-02-03] MEDS: DORZOLAMIDE 2% OPHTH 10 ML BOTTLE LEFTEYE SCH ×2 (10:20→18:15)
[2019-02-03] MEDS: DOCUSATE SODIUM SUGAR FREE 100MG/10ML UDC NG SCH ×2 (10:20→18:15)
[2019-02-03] MEDS: AMIODARONE HCL 200 MG TABLET PO SCH ×2 (10:20→20:47)
[2019-02-03] MEDS: PANTOPRAZOLE SODIUM 40 MG/VIAL IV SCH (10:20)
[2019-02-03] MEDS: MIDODRINE HCL 5MG TABLET PO SCH ×3 (10:21→18:16)
[2019-02-03 10:27] LABS: PLATELET ESTIMATE INCREASED
[2019-02-03] MEDS: PIPERACILLIN/TAZ 2.25G PREMIX 50 ML IV SCH ×2 (12:45→22:24)
[2019-02-03] MEDS: ATORVASTATIN CALCIUM 10MG TABLET PO SCH (20:47)
[2019-02-03] MEDS: MONTELUKAST SODIUM 10MG TABLET PO SCH (20:47)
[2019-02-04] VITALS (16 sets, daily range): BP systolic 83–170; BP diastolic 45–82
[2019-02-04] MEDS: IPRATROPIUM/ALBUTEROL 0.5-3(2.5)MG/3ML NEB HHN SCH ×4 (02:35→20:42)
[2019-02-04] MEDS: PIPERACILLIN/TAZ 2.25G PREMIX 50 ML IV SCH ×3 (05:36→21:45)
[2019-02-04] MEDS: GABAPENTIN 300MG CAPSULE PO SCH ×3 (05:36→21:40)
[2019-02-04] MEDS: CALCIUM ACETATE 667MG CAPSULE PO SCH ×3 (05:36→18:10)
[2019-02-04] MEDS: METOCLOPRAMIDE HCL 10MG/2ML VIAL IV SCH ×4 (05:40→18:09)
[2019-02-04] MEDS ORDERED: ALTEPLASE 2MG/VIAL ITC SCH (06:00)
[2019-02-04] MEDS: INSULIN LISPRO 100 UNITS/ML SUBCUT SCH ×3 (06:39→18:57)
[2019-02-04] MEDS: BLOOD SUGAR DIAGNOSTIC STRIP TEST SCH ×3 (06:50→17:30)
[2019-02-04 07:05] LABS: HEMATOCRIT. 29.2 % (36.0-48.0); HEMOGLOBIN. 9.4 g/dL (12.0-16.0); MEAN CORPUSCULAR HEMOGLOBIN 29.1 pg (28.0-32.0); MEAN CORPUSCULAR VOLUME 90.6 fL (81.0-99.0); MEAN PLATELET VOLUME 8.7 fl (7.4-10.4); PLATELET 338 x1000/uL (130-400); RED BLOOD CELL COUNT 3.23 mill/uL (4.2-5.4); RED CELL DISTRIBUTION WIDTH 16.8 % (11.6-14.6)
[2019-02-04 07:39] LABS: PLATELET ESTIMATE NORMAL
[2019-02-04] MEDS: DOCUSATE SODIUM SUGAR FREE 100MG/10ML UDC NG SCH ×2 (09:24→18:10)
[2019-02-04] MEDS: AMIODARONE HCL 200 MG TABLET PO SCH ×2 (09:24→21:45)
[2019-02-04] MEDS: MIDODRINE HCL 5MG TABLET PO SCH ×3 (09:25→18:10)
[2019-02-04] MEDS: CARVEDILOL 6.25 MG TABLET PO SCH ×2 (09:25→21:00)
[2019-02-04] MEDS: TIMOLOL MALEATE 0.5% OPHTH DROPS 5ML LEFTEYE SCH ×2 (09:29→18:59)
[2019-02-04] MEDS: DORZOLAMIDE 2% OPHTH 10 ML BOTTLE LEFTEYE SCH ×2 (09:29→18:59)
[2019-02-04] MEDS: ACETAMINOPHEN 325MG TABLET PO PRN ×2 (09:33→16:22)
[2019-02-04] MEDS: PANTOPRAZOLE SODIUM 40 MG/VIAL IV SCH (11:13)
[2019-02-04] MEDS: INSULIN GLARGINE UD 100 UNITS/ML SYR SUBCUT SCH (12:47)
[2019-02-04] MEDS ORDERED: HETASTARCH/NORMAL SALINE 500 ML PLAST..BAG IV STA (16:34)
[2019-02-04] MEDS ORDERED: HETASTARCH/NORMAL SALINE 250 ML IV STA (16:40)
[2019-02-04] MEDS: MONTELUKAST SODIUM 10MG TABLET PO SCH (21:40)
[2019-02-04] MEDS: ATORVASTATIN CALCIUM 10MG TABLET PO SCH (21:40)
[2019-02-05] VITALS (12 sets, daily range): BP systolic 80–108; BP diastolic 43–57
[2019-02-05] MEDS: METOCLOPRAMIDE HCL 10MG/2ML VIAL IV SCH ×4 (00:21→17:26)
[2019-02-05] MEDS: BLOOD SUGAR DIAGNOSTIC STRIP TEST SCH ×4 (00:23→17:26)
[2019-02-05] MEDS: INSULIN LISPRO 100 UNITS/ML SUBCUT SCH ×4 (00:23→18:18)
[2019-02-05] MEDS: IPRATROPIUM/ALBUTEROL 0.5-3(2.5)MG/3ML NEB HHN SCH ×4 (01:39→20:14)
[2019-02-05] MEDS ORDERED: INSULIN LISPRO 100 UNITS/ML SUBCUT SCH (03:00)
[2019-02-05] MEDS ORDERED: BLOOD SUGAR DIAGNOSTIC STRIP TEST SCH (03:00)
[2019-02-05] MEDS: PIPERACILLIN/TAZ 2.25G PREMIX 50 ML IV SCH ×3 (06:24→21:40)
[2019-02-05] MEDS: GABAPENTIN 300MG CAPSULE PO SCH ×3 (06:25→21:40)
[2019-02-05 07:17] LABS: HEMATOCRIT. 26.6 % (36.0-48.0); HEMOGLOBIN. 8.5 g/dL (12.0-16.0); MEAN CORPUSCULAR HEMOGLOBIN 29.1 pg (28.0-32.0); MEAN CORPUSCULAR VOLUME 91.4 fL (81.0-99.0); MEAN PLATELET VOLUME 9.2 fl (7.4-10.4); PLATELET 299 x1000/uL (130-400); RED BLOOD CELL COUNT 2.92 mill/uL (4.2-5.4)
[2019-02-05] MEDS: CARVEDILOL 6.25 MG TABLET PO SCH ×2 (09:00→21:00)
[2019-02-05] MEDS: AMIODARONE HCL 200 MG TABLET PO SCH ×2 (09:00→21:40)
[2019-02-05] MEDS: DOCUSATE SODIUM SUGAR FREE 100MG/10ML UDC NG SCH ×2 (09:12→16:36)
[2019-02-05] MEDS: PANTOPRAZOLE SODIUM 40 MG/VIAL IV SCH (09:13)
[2019-02-05] MEDS: CALCIUM ACETATE 667MG CAPSULE PO SCH ×3 (09:13→18:16)
[2019-02-05] MEDS: MIDODRINE HCL 5MG TABLET PO SCH ×2 (09:13→15:22)
[2019-02-05] MEDS: DORZOLAMIDE 2% OPHTH 10 ML BOTTLE LEFTEYE SCH ×2 (09:14→18:16)
[2019-02-05] MEDS: TIMOLOL MALEATE 0.5% OPHTH DROPS 5ML LEFTEYE SCH ×2 (09:14→18:17)
[2019-02-05 09:46] LABS: PLATELET ESTIMATE NORMAL
[2019-02-05] MEDS: INSULIN GLARGINE UD 100 UNITS/ML SYR SUBCUT SCH (11:31)
[2019-02-05] MEDS: ATORVASTATIN CALCIUM 10MG TABLET PO SCH (21:40)
[2019-02-05] MEDS: MONTELUKAST SODIUM 10MG TABLET PO SCH (21:40)
[2019-02-06] VITALS (12 sets, daily range): BP systolic 94–128; BP diastolic 50–67
[2019-02-06] MEDS: METOCLOPRAMIDE HCL 10MG/2ML VIAL IV SCH ×4 (00:16→17:48)
[2019-02-06] MEDS: INSULIN LISPRO 100 UNITS/ML SUBCUT SCH ×4 (00:19→17:51)
[2019-02-06] MEDS: IPRATROPIUM/ALBUTEROL 0.5-3(2.5)MG/3ML NEB HHN SCH ×4 (01:58→20:46)
[2019-02-06] MEDS: BLOOD SUGAR DIAGNOSTIC STRIP TEST SCH ×4 (06:02→17:42)
[2019-02-06] MEDS: PIPERACILLIN/TAZ 2.25G PREMIX 50 ML IV SCH (06:02)
[2019-02-06 07:21] LABS: HEMATOCRIT. 27.3 % (36.0-48.0); HEMOGLOBIN. 8.6 g/dL (12.0-16.0); MEAN CORPUSCULAR HEMOGLOBIN 28.8 pg (28.0-32.0); MEAN PLATELET VOLUME 9.4 fl (7.4-10.4); PLATELET 272 x1000/uL (130-400)
[2019-02-06] MEDS: DOCUSATE SODIUM SUGAR FREE 100MG/10ML UDC NG SCH ×2 (09:00→16:10)
[2019-02-06] MEDS: AMIODARONE HCL 200 MG TABLET PO SCH ×2 (09:00→21:26)
[2019-02-06] MEDS: CALCIUM ACETATE 667MG CAPSULE PO SCH ×3 (09:12→17:48)
[2019-02-06] MEDS: PANTOPRAZOLE SODIUM 40 MG/VIAL IV SCH (09:12)
[2019-02-06] MEDS: MIDODRINE HCL 5MG TABLET PO SCH ×3 (09:13→17:48)
[2019-02-06] MEDS: INSULIN GLARGINE UD 100 UNITS/ML SYR SUBCUT SCH (10:06)
[2019-02-06] MEDS ORDERED: ONDANSETRON HCL 4MG/2ML INJ IV PRN (14:00)
[2019-02-06] MEDS ORDERED: VANCOMYCIN 750 MG PREMIX 150 ML IV SCH (16:00)
[2019-02-06] MEDS: CEFTAZIDIME PENTAHYDRATE 1 G in DEXTROSE 5% WATER 50 ML IV SCH (16:23)
[2019-02-06] MEDS: SULFAMETHOXAZOLE/TRIMETHOPRIM 800/160MG TABLET PO SCH (16:24)
[2019-02-07] VITALS (13 sets, daily range): BP systolic 90–140; BP diastolic 51–69
[2019-02-07] MEDS: METOCLOPRAMIDE HCL 10MG/2ML VIAL IV SCH ×4 (00:48→17:32)
[2019-02-07] MEDS: INSULIN LISPRO 100 UNITS/ML SUBCUT SCH ×4 (00:51→18:36)
[2019-02-07] MEDS: BLOOD SUGAR DIAGNOSTIC STRIP TEST SCH ×4 (05:57→18:26)
[2019-02-07 06:56] LABS: HEMOGLOBIN. 9.2 g/dL (12.0-16.0); MEAN CORPUSCULAR HEMOGLOBIN 29.2 pg (28.0-32.0); MEAN CORPUSCULAR VOLUME 92.4 fL (81.0-99.0); MEAN PLATELET VOLUME 9.2 fl (7.4-10.4); PLATELET 272 x1000/uL (130-400); RED BLOOD CELL COUNT 3.14 mill/uL (4.2-5.4); RED CELL DISTRIBUTION WIDTH 17.6 % (11.6-14.6)
[2019-02-07] MEDS: CALCIUM ACETATE 667MG CAPSULE PO SCH (08:46)
[2019-02-07] MEDS: PANTOPRAZOLE SODIUM 40 MG/VIAL IV SCH (08:46)
[2019-02-07] MEDS: MIDODRINE HCL 5MG TABLET PO SCH ×3 (08:47→17:32)
[2019-02-07] MEDS: AMIODARONE HCL 200 MG TABLET PO SCH ×2 (08:47→21:35)
[2019-02-07] MEDS: DOCUSATE SODIUM SUGAR FREE 100MG/10ML UDC NG SCH ×2 (08:48→17:31)
[2019-02-07] MEDS: IPRATROPIUM/ALBUTEROL 0.5-3(2.5)MG/3ML NEB HHN SCH ×3 (09:10→20:20)
[2019-02-07] MEDS: INSULIN GLARGINE UD 100 UNITS/ML SYR SUBCUT SCH (10:15)
[2019-02-07 15:11] LABS: PLATELET ESTIMATE NORMAL
[2019-02-07] MEDS: CEFTAZIDIME PENTAHYDRATE 1 G in DEXTROSE 5% WATER 50 ML IV SCH (17:32)
[2019-02-08] VITALS (12 sets, daily range): BP systolic 85–134; BP diastolic 40–76
[2019-02-08] MEDS: METOCLOPRAMIDE HCL 10MG/2ML VIAL IV SCH ×5 (00:40→22:50)
[2019-02-08] MEDS: INSULIN LISPRO 100 UNITS/ML SUBCUT SCH ×5 (00:43→22:50)
[2019-02-08] MEDS: BLOOD SUGAR DIAGNOSTIC STRIP TEST SCH ×4 (00:43→22:51)
[2019-02-08] MEDS: IPRATROPIUM/ALBUTEROL 0.5-3(2.5)MG/3ML NEB HHN SCH ×2 (02:24→20:15)
[2019-02-08 06:42] LABS: HEMOGLOBIN. 9.5 g/dL (12.0-16.0); MEAN CORPUSCULAR HEMOGLOBIN 29.2 pg (28.0-32.0); MEAN CORPUSCULAR VOLUME 91.6 fL (81.0-99.0); MEAN PLATELET VOLUME 9.5 fl (7.4-10.4); PLATELET 259 x1000/uL (130-400); RED BLOOD CELL COUNT 3.27 mill/uL (4.2-5.4); RED CELL DISTRIBUTION WIDTH 17.7 % (11.6-14.6)
[2019-02-08 07:56] LABS: PLATELET ESTIMATE NORMAL
[2019-02-08] MEDS: AMIODARONE HCL 200 MG TABLET PO SCH ×2 (09:00→22:50)
[2019-02-08] MEDS: PANTOPRAZOLE SODIUM 40 MG/VIAL IV SCH (12:27)
[2019-02-08] MEDS: DOCUSATE SODIUM SUGAR FREE 100MG/10ML UDC NG SCH ×2 (12:29→17:37)
[2019-02-08] MEDS: INSULIN GLARGINE UD 100 UNITS/ML SYR SUBCUT SCH (12:29)
[2019-02-08] MEDS: SULFAMETHOXAZOLE/TRIMETHOPRIM 800/160MG TABLET PO SCH (12:29)
[2019-02-08] MEDS: MIDODRINE HCL 5MG TABLET PO SCH ×2 (12:30→17:38)
[2019-02-08] MEDS: CEFTAZIDIME PENTAHYDRATE 1 G in DEXTROSE 5% WATER 50 ML IV SCH (17:37)
[2019-02-08 21:22] LABS: PLATELET ESTIMATE NORMAL
[2019-02-09] VITALS (12 sets, daily range): BP systolic 101–160; BP diastolic 55–69
[2019-02-09] MEDS: IPRATROPIUM/ALBUTEROL 0.5-3(2.5)MG/3ML NEB HHN SCH ×3 (00:53→20:53)
[2019-02-09] MEDS: BLOOD SUGAR DIAGNOSTIC STRIP TEST SCH ×4 (06:00→23:19)
[2019-02-09] MEDS: METOCLOPRAMIDE HCL 10MG/2ML VIAL IV SCH ×4 (06:04→23:06)
[2019-02-09] MEDS: INSULIN LISPRO 100 UNITS/ML SUBCUT SCH ×4 (06:04→23:07)
[2019-02-09] MEDS: AMIODARONE HCL 200 MG TABLET PO SCH ×2 (08:54→23:07)
[2019-02-09] MEDS: PANTOPRAZOLE SODIUM 40 MG/VIAL IV SCH (08:54)
[2019-02-09] MEDS: DOCUSATE SODIUM SUGAR FREE 100MG/10ML UDC NG SCH ×2 (08:55→17:31)
[2019-02-09] MEDS: MIDODRINE HCL 5MG TABLET PO SCH ×4 (08:56→17:34)
[2019-02-09] MEDS: INSULIN GLARGINE UD 100 UNITS/ML SYR SUBCUT SCH (11:56)
[2019-02-09] MEDS: CEFTAZIDIME PENTAHYDRATE 1 G in DEXTROSE 5% WATER 50 ML IV SCH (17:30)
[2019-02-09] MEDS ORDERED: ACETAMINOPHEN 650MG/20.3ML UDC PO PRN (20:00)
[2019-02-09] MEDS ORDERED: DORZOLAM/TIMOLOL 2.23/0.68% OPHTH DROPS 10ML LEFTEYE SCH (21:00)
[2019-02-09] MEDS: POLYVINYL ALCOHOL OPHTH DROPS 15ML BOTHEYE SCH (21:43)
[2019-02-09] MEDS: DORZOLAMIDE 2% OPHTH 10 ML BOTTLE LEFTEYE SCH (21:43)
[2019-02-09] MEDS: TIMOLOL MALEATE 0.5% OPHTH DROPS 5ML LEFTEYE SCH (21:43)
[2019-02-10] VITALS (18 sets, daily range): BP systolic 111–139; BP diastolic 54–68
[2019-02-10] MEDS: IPRATROPIUM/ALBUTEROL 0.5-3(2.5)MG/3ML NEB HHN SCH ×4 (01:56→20:51)
[2019-02-10] MEDS: BLOOD SUGAR DIAGNOSTIC STRIP TEST SCH ×3 (06:00→17:06)
[2019-02-10] MEDS: POLYVINYL ALCOHOL OPHTH DROPS 15ML BOTHEYE SCH ×3 (06:08→22:00)
[2019-02-10] MEDS: INSULIN LISPRO 100 UNITS/ML SUBCUT SCH ×3 (06:08→17:35)
[2019-02-10] MEDS: METOCLOPRAMIDE HCL 10MG/2ML VIAL IV SCH ×3 (06:08→17:05)
[2019-02-10 07:37] LABS: HEMATOCRIT. 29.5 % (36.0-48.0); HEMOGLOBIN. 9.4 g/dL (12.0-16.0); MEAN CORPUSCULAR HEMOGLOBIN 29.2 pg (28.0-32.0); MEAN CORPUSCULAR VOLUME 92.1 fL (81.0-99.0); MEAN PLATELET VOLUME 9.7 fl (7.4-10.4); PLATELET 262 x1000/uL (130-400); RED BLOOD CELL COUNT 3.21 mill/uL (4.2-5.4); RED CELL DISTRIBUTION WIDTH 18.2 % (11.6-14.6)
[2019-02-10 07:44] LABS: PHOSPHORUS 3.8 mg/dL (2.5-4.9)
[2019-02-10] MEDS: SULFAMETHOXAZOLE/TRIMETHOPRIM 800/160MG TABLET PO SCH (09:07)
[2019-02-10] MEDS: PANTOPRAZOLE SODIUM 40 MG/VIAL IV SCH (09:07)
[2019-02-10] MEDS: DOCUSATE SODIUM SUGAR FREE 100MG/10ML UDC NG SCH ×2 (09:07→17:05)
[2019-02-10] MEDS: MIDODRINE HCL 5MG TABLET PO SCH ×3 (09:08→17:05)
[2019-02-10] MEDS: TIMOLOL MALEATE 0.5% OPHTH DROPS 5ML LEFTEYE SCH ×2 (09:08→17:07)
[2019-02-10] MEDS: DORZOLAMIDE 2% OPHTH 10 ML BOTTLE LEFTEYE SCH ×2 (09:08→17:07)
[2019-02-10] MEDS: AMIODARONE HCL 200 MG TABLET PO SCH (09:11)
[2019-02-10] MEDS: INSULIN GLARGINE UD 100 UNITS/ML SYR SUBCUT SCH (09:55)
[2019-02-10 11:12] LABS: NUCLEATED RED BLOOD CELLS 1 /100 WBC
[2019-02-10 11:14] LABS: PLATELET ESTIMATE NORMAL
[2019-02-10] MEDS: CEFTAZIDIME PENTAHYDRATE 1 G in DEXTROSE 5% WATER 50 ML IV SCH (17:06)
[2019-02-11] VITALS (16 sets, daily range): BP systolic 100–142; BP diastolic 46–72
[2019-02-11] MEDS: AMIODARONE HCL 200 MG TABLET PO SCH ×3 (01:11→19:58)
[2019-02-11] MEDS: METOCLOPRAMIDE HCL 10MG/2ML VIAL IV SCH ×4 (01:12→17:40)
[2019-02-11] MEDS: IPRATROPIUM/ALBUTEROL 0.5-3(2.5)MG/3ML NEB HHN SCH ×4 (01:35→20:02)
[2019-02-11] MEDS: INSULIN LISPRO 100 UNITS/ML SUBCUT SCH ×4 (06:00→17:41)
[2019-02-11] MEDS: BLOOD SUGAR DIAGNOSTIC STRIP TEST SCH ×4 (06:00→17:18)
[2019-02-11 06:53] LABS: BASOPHILS % 0.6 % (0.0-2.0); EOSINOPHILS % 1.3 % (0.0-5.0); HEMATOCRIT. 28.8 % (36.0-48.0); HEMOGLOBIN. 9.1 g/dL (12.0-16.0); LYMPHOCYTES % 12.7 % (20.0-50.0); MEAN CORPUSCULAR VOLUME 91.8 fL (81.0-99.0); MEAN PLATELET VOLUME 8.9 fl (7.4-10.4); MONOCYTES % 11.3 % (2.0-8.0); NEUTROPHILS % 74.1 % (40.0-76.0); PLATELET 211 x1000/uL (130-400); RED BLOOD CELL COUNT 3.14 mill/uL (4.2-5.4); RED CELL DISTRIBUTION WIDTH 18.5 % (11.6-14.6)
[2019-02-11] MEDS: POLYVINYL ALCOHOL OPHTH DROPS 15ML BOTHEYE SCH ×3 (07:03→22:00)
[2019-02-11] MEDS: PANTOPRAZOLE SODIUM 40 MG/VIAL IV SCH (09:05)
[2019-02-11] MEDS: DOCUSATE SODIUM SUGAR FREE 100MG/10ML UDC NG SCH ×2 (09:05→16:25)
[2019-02-11] MEDS: DORZOLAMIDE 2% OPHTH 10 ML BOTTLE LEFTEYE SCH ×2 (09:05→16:09)
[2019-02-11] MEDS: MIDODRINE HCL 5MG TABLET PO SCH ×3 (09:06→16:26)
[2019-02-11] MEDS: TIMOLOL MALEATE 0.5% OPHTH DROPS 5ML LEFTEYE SCH ×2 (09:06→16:09)
[2019-02-11] MEDS: INSULIN GLARGINE UD 100 UNITS/ML SYR SUBCUT SCH (10:28)
[2019-02-11] MEDS: CEFTAZIDIME PENTAHYDRATE 1 G in DEXTROSE 5% WATER 50 ML IV SCH (16:09)
== END 2019-02-11 20:15 | DRG 3 ==
LOC: ER 16:09 → 8WST 21:11 → SUPCPDRO 23:15 → ENRESERV 01-08 01:51 → 3WST 01-09 01:12 → 8WST 01-11 13:18 → 5EST 01-17 14:49 → MICUNO 01-17 18:30 → 5EST 02-04 14:00
PROVIDERS: ADMIT Hospitalist; ATTEND Hospitalist
PROC: 5A09357 Assistance with Respiratory Ventilation, Less than 24 Consecutive Hours, Continuous Positive Airway Pressure (ICD-10-PCS; 2019-01-08)
PROC: 5A1D70Z Performance of Urinary Filtration, Intermittent, Less than 6 Hours Per Day (ICD-10-PCS; 2019-01-08)
PROC: 5A09357 Assistance with Respiratory Ventilation, Less than 24 Consecutive Hours, Continuous Positive Airway Pressure (ICD-10-PCS; 2019-01-09)
PROC: 5A1D70Z Performance of Urinary Filtration, Intermittent, Less than 6 Hours Per Day (ICD-10-PCS; 2019-01-09)
PROC: 5A09357 Assistance with Respiratory Ventilation, Less than 24 Consecutive Hours, Continuous Positive Airway Pressure (ICD-10-PCS; 2019-01-10)
PROC: 5A1D70Z Performance of Urinary Filtration, Intermittent, Less than 6 Hours Per Day (ICD-10-PCS; 2019-01-10)
PROC: 5A09357 Assistance with Respiratory Ventilation, Less than 24 Consecutive Hours, Continuous Positive Airway Pressure (ICD-10-PCS; 2019-01-11)
PROC: 03783ZZ Dilation of Left Brachial Artery, Percutaneous Approach (ICD-10-PCS; principal; 2019-01-12)
PROC: 5A09357 Assistance with Respiratory Ventilation, Less than 24 Consecutive Hours, Continuous Positive Airway Pressure (ICD-10-PCS; 2019-01-12)
PROC: 03PY3JZ Removal of Synthetic Substitute from Upper Artery, Percutaneous Approach (ICD-10-PCS; 2019-01-13)
PROC: 30233N1 Transfusion of Nonautologous Red Blood Cells into Peripheral Vein, Percutaneous Approach (ICD-10-PCS; 2019-01-13)
PROC: 5A09357 Assistance with Respiratory Ventilation, Less than 24 Consecutive Hours, Continuous Positive Airway Pressure (ICD-10-PCS; 2019-01-13)
PROC: 5A1D70Z Performance of Urinary Filtration, Intermittent, Less than 6 Hours Per Day (ICD-10-PCS; 2019-01-13)
PROC: 5A09357 Assistance with Respiratory Ventilation, Less than 24 Consecutive Hours, Continuous Positive Airway Pressure (ICD-10-PCS; 2019-01-14)
PROC: 0JH63XZ Insertion of Tunneled Vascular Access Device into Chest Subcutaneous Tissue and Fascia, Percutaneous Approach (ICD-10-PCS; 2019-01-14)
PROC: 02HV33Z Insertion of Infusion Device into Superior Vena Cava, Percutaneous Approach (ICD-10-PCS; 2019-01-14)
PROC: B5181ZA Fluoroscopy of Superior Vena Cava using Low Osmolar Contrast, Guidance (ICD-10-PCS; 2019-01-14)
PROC: B548ZZA Ultrasonography of Superior Vena Cava, Guidance (ICD-10-PCS; 2019-01-14)
PROC: 5A09357 Assistance with Respiratory Ventilation, Less than 24 Consecutive Hours, Continuous Positive Airway Pressure (ICD-10-PCS; 2019-01-15)
PROC: 5A1D70Z Performance of Urinary Filtration, Intermittent, Less than 6 Hours Per Day (ICD-10-PCS; 2019-01-15)
PROC: 5A09357 Assistance with Respiratory Ventilation, Less than 24 Consecutive Hours, Continuous Positive Airway Pressure (ICD-10-PCS; 2019-01-16)
PROC: 5A09357 Assistance with Respiratory Ventilation, Less than 24 Consecutive Hours, Continuous Positive Airway Pressure (ICD-10-PCS; 2019-01-17)
PROC: 5A1D70Z Performance of Urinary Filtration, Intermittent, Less than 6 Hours Per Day (ICD-10-PCS; 2019-01-17)
PROC: 5A09357 Assistance with Respiratory Ventilation, Less than 24 Consecutive Hours, Continuous Positive Airway Pressure (ICD-10-PCS; 2019-01-18)
PROC: 05H533Z Insertion of Infusion Device into Right Subclavian Vein, Percutaneous Approach (ICD-10-PCS; 2019-01-18)
PROC: B546ZZA Ultrasonography of Right Subclavian Vein, Guidance (ICD-10-PCS; 2019-01-18)
PROC: 5A1D70Z Performance of Urinary Filtration, Intermittent, Less than 6 Hours Per Day (ICD-10-PCS; 2019-01-19)
PROC: 5A09357 Assistance with Respiratory Ventilation, Less than 24 Consecutive Hours, Continuous Positive Airway Pressure (ICD-10-PCS; 2019-01-20)
PROC: 5A09357 Assistance with Respiratory Ventilation, Less than 24 Consecutive Hours, Continuous Positive Airway Pressure (ICD-10-PCS; 2019-01-21)
PROC: 5A1D70Z Performance of Urinary Filtration, Intermittent, Less than 6 Hours Per Day (ICD-10-PCS; 2019-01-21)
PROC: 0DH63UZ Insertion of Feeding Device into Stomach, Percutaneous Approach (ICD-10-PCS; 2019-01-21)
PROC: 5A09357 Assistance with Respiratory Ventilation, Less than 24 Consecutive Hours, Continuous Positive Airway Pressure (ICD-10-PCS; 2019-01-22)
PROC: 5A09357 Assistance with Respiratory Ventilation, Less than 24 Consecutive Hours, Continuous Positive Airway Pressure (ICD-10-PCS; 2019-01-23)
PROC: 5A1D70Z Performance of Urinary Filtration, Intermittent, Less than 6 Hours Per Day (ICD-10-PCS; 2019-01-23)
PROC: 5A09357 Assistance with Respiratory Ventilation, Less than 24 Consecutive Hours, Continuous Positive Airway Pressure (ICD-10-PCS; 2019-01-24)
PROC: 5A1D70Z Performance of Urinary Filtration, Intermittent, Less than 6 Hours Per Day (ICD-10-PCS; 2019-01-25)
PROC: 5A1955Z Respiratory Ventilation, Greater than 96 Consecutive Hours (ICD-10-PCS; 2019-01-26)
PROC: 0B113F4 Bypass Trachea to Cutaneous with Tracheostomy Device, Percutaneous Approach (ICD-10-PCS; 2019-01-26)
PROC: 5A1D70Z Performance of Urinary Filtration, Intermittent, Less than 6 Hours Per Day (ICD-10-PCS; 2019-01-27)
PROC: 5A1D70Z Performance of Urinary Filtration, Intermittent, Less than 6 Hours Per Day (ICD-10-PCS; 2019-01-29)
PROC: 5A1D70Z Performance of Urinary Filtration, Intermittent, Less than 6 Hours Per Day (ICD-10-PCS; 2019-01-31)
PROC: 5A1D70Z Performance of Urinary Filtration, Intermittent, Less than 6 Hours Per Day (ICD-10-PCS; 2019-02-02)
PROC: 5A1D70Z Performance of Urinary Filtration, Intermittent, Less than 6 Hours Per Day (ICD-10-PCS; 2019-02-04)
PROC: 5A1D70Z Performance of Urinary Filtration, Intermittent, Less than 6 Hours Per Day (ICD-10-PCS; 2019-02-06)
PROC: 5A1D70Z Performance of Urinary Filtration, Intermittent, Less than 6 Hours Per Day (ICD-10-PCS; 2019-02-10)
DX: T80.211A Bloodstream infection due to central venous catheter, initial encounter (principal); N18.6 End stage renal disease; A41.1 Sepsis due to other specified staphylococcus; I50.33 Acute on chronic diastolic (congestive) heart failure; I63.512 Cerebral infarction due to unspecified occlusion or stenosis of left middle cerebral artery; G92 Toxic encephalopathy; J96.21 Acute and chronic respiratory failure with hypoxia; J69.0 Pneumonitis due to inhalation of food and vomit; I63.9 Cerebral infarction, unspecified; R65.21 Severe sepsis with septic shock; T82.818A Embolism due to vascular prosthetic devices, implants and grafts, initial encounter; E66.2 Morbid (severe) obesity with alveolar hypoventilation; L03.115 Cellulitis of right lower limb; L03.116 Cellulitis of left lower limb; D69.3 Immune thrombocytopenic purpura; I13.2 Hypertensive heart and chronic kidney disease with heart failure and with stage 5 chronic kidney disease, or end stage renal disease; E46 Unspecified protein-calorie malnutrition; G81.91 Hemiplegia, unspecified affecting right dominant side; E87.2 Acidosis; L97.909 Non-pressure chronic ulcer of unspecified part of unspecified lower leg with unspecified severity; Z68.42 Body mass index [BMI] 45.0-49.9, adult; Z99.11 Dependence on respirator [ventilator] status; E87.5 Hyperkalemia; D63.1 Anemia in chronic kidney disease; I27.20 Pulmonary hypertension, unspecified; E11.22 Type 2 diabetes mellitus with diabetic chronic kidney disease; E78.5 Hyperlipidemia, unspecified; E83.51 Hypocalcemia; F41.9 Anxiety disorder, unspecified; E78.00 Pure hypercholesterolemia, unspecified; E78.1 Pure hyperglyceridemia; H54.8 Legal blindness, as defined in USA; I25.10 Atherosclerotic heart disease of native coronary artery without angina pectoris; I27.81 Cor pulmonale (chronic); Z51.5 Encounter for palliative care; Y84.8 Other medical procedures as the cause of abnormal reaction of the patient, or of later complication, without mention of misadventure at the time of the procedure; I48.0 Paroxysmal atrial fibrillation; K29.80 Duodenitis without bleeding; K44.9 Diaphragmatic hernia without obstruction or gangrene; K29.70 Gastritis, unspecified, without bleeding; J44.9 Chronic obstructive pulmonary disease, unspecified; I83.009 Varicose veins of unspecified lower extremity with ulcer of unspecified site; I27.29 Other secondary pulmonary hypertension; R04.0 Epistaxis; K59.00 Constipation, unspecified; R13.12 Dysphagia, oropharyngeal phase; R47.02 Dysphasia; Y83.2 Surgical operation with anastomosis, bypass or graft as the cause of abnormal reaction of the patient, or of later complication, without mention of misadventure at the time of the procedure; I65.22 Occlusion and stenosis of left carotid artery; Z99.2 Dependence on renal dialysis; Z79.4 Long term (current) use of insulin; Z86.73 Personal history of transient ischemic attack (TIA), and cerebral infarction without residual deficits; Z91.15 Patient's noncompliance with renal dialysis; Z93.1 Gastrostomy status; Z95.5 Presence of coronary angioplasty implant and graft; Z99.81 Dependence on supplemental oxygen
CPT/HCPCS: 36415; 36569; 36589; 36600; 36901; 36904; 37248; 70496; 70498; 70551; 71045; 74018; 76937; 77001; 80048; 80051; 80061; 80202; 81400; 81403; 81407; 81479; 82140; 82330; 82375; 82465; 82550; 82607; 82746; 82805; 82962; 83036; 83605; 83721; 83735; 83970; 84100; 84132; 84145; 84439; 84443; 84478; 84481; 84484; 84520; 85014; 85018; 85027; 85300; 85303; 85306; 85379; 85384; 85613; 85651; 85732; 86140; 86147; 86850; 86900; 86920; 87070; 87075; 87077; 87186; 88304; 93005; 93306; 93970; 94002; 94003; 94640; 94644; 94660; 96374; 96375; 99285; A6261; C1725; C1768; C1769; C1884; C1893; C1894; C9113; J0690; J0692; J0713; J0885; J1170; J1200; J1642; J1644; J1650; J1720; J1815; J1956; J2185; J2250; J2370; J2405; J2440; J2543; J2704; J2765; J2785; J2997; J3010; J3370; J3490; J7040; J7042; J7050; J7060; J7611; J7620; J7626; P9016; Q9967; A4315